=== PATIENT | male | born 1940 | race Caucasian/White ===

== ENCOUNTER → 2016-04-10 | Outpatient (CLI) | payer MEDICARE, BC ==
[~2016-04-10] MED LIST: ASPIRIN 81M81 MG/TA2 PO; CALCIUM 500500 M2 PO; CARDI-OMEGA1000 MG PO; DOXYCYCLINE 10100 MG PO; ELIQUIS 5MG PO; GLUCOSAMINE & C1 TA2 PO; HCTZ12.5TAB PO; IMDUR 30MG30 MG/TAB; LOTENSIN HCT 201 TAB PO; LOTENSIN20 MG PO; MULTAQ400 MG PO; MULTIPLE VITAMI1 CAP PO; PERFOROMIS20 MCG/2 M; PREDNISONE20 MG PO; PULMICORT R1 MG/2 ML; RT ADVAIR 128 DISKUS IH; RT SPIRIVA18 MCG IH; TRIAMCINOLONE A15 G3 TP; TUDORZA; TYLENOL 500MG500 MG PO; VENTOLIN0.09 MG; VITAMIN D 1001000 IU PO; XARELTO20 MG PO; ZOFRAN ODT4 MG PO; [UNRECOGNIZED DRUG - OTHER]
== END ==
LOC: COL.VAS 09:55
DX: I27.2 Other secondary pulmonary hypertension (principal); R94.39 Abnormal result of other cardiovascular function study

== ENCOUNTER 2017-07-29 05:39 | Inpatient (IN) | payer MEDICARE, BC ==
[2017-07-29] VITALS (400 sets, daily range): BP systolic 125–155; BP diastolic 89–102; PULSE 64–75; TEMP 97.5–98.1; O2SAT 84–100
[~2017-07-29] VITALS: Ht 180.3 cm; Wt 160.0 kg
[~2017-07-29 05:39] MED LIST changes: +CALCIUM 600MG+D1 TAB PO; +FLONASE NASAL S16 GM NS; -IMDUR 30MG30 MG/TAB; +IMDUR 30MG30 MG/TAB PO; +KLONOPIN 0.5MG0.5 MG PO; +LOTENSIN HCT 101 TAB PO; +MUCINEX DM 30 M1 TE1 PO; +SPIRIVA RE2.5 MCG/Ac IH; -VENTOLIN0.09 MG; +VENTOLIN0.09 MG IH
[2017-07-29 05:57] LABS: BASO # 0.1 (0.0-0.2); BASO % 0.8 % (0.0-2.0); EOS # 0.3 (0.0-0.7); EOS % 3.7 % (0-4.0); GRAN # 5.6 (1.4-6.5); GRAN % 71.3 % (42.2-75.2); HEMATOCRIT 40.6 % (42.0-52.0); HEMOGLOBIN 13.9 g/dl (13.5-18.0); LYMPH # 1.1 (1.2-3.4); LYMPH % 13.7 % (20.0-51.0); MEAN CELL VOLUME 99 fl (80.0-100.0); MEAN CORPUSCULAR HEMOGLOBIN 34 pg (27.0-31.0); MEAN CORPUSCULAR HGB CONC 34 g/dl (33.0-37.0); MEAN PLATELET VOLUME 10.9 fl (7.4-10.4); MONO # 0.8 (0.1-0.6); MONO % 10.1 % (1.7-9.3); PLATELET COUNT 177 K/mm3 (130-400); RED BLOOD COUNT 4.09 M/mm3 (4.20-5.60); REDCELL DISTRIBUTION WIDTH-CV 12.7 % (11.5-14.5)
[2017-07-29 06:08] LABS: ALBUMIN 3.9 gm/dL (3.5-5.0); BILIRUBIN,TOTAL 0.4 mg/dL (0.0-1.0); CALCIUM 9.1 mg/dL (8.4-10.2); CREATININE, serum 0.9 mg/dL (0.66-1.25); POTASSIUM 4.7 mmol/L (3.4-5.0); TOTAL PROTEIN 7.2 gm/dL (6.4-8.2)
[2017-07-29 07:50] LABS: INR 1.1 (0.8-3.0); PROTHROMBIN TIME 12.4 SECONDS (9.7-12.8)
[2017-07-29 07:52] LABS: PARTIAL THROMBOPLASTIN TIME 43.4 SECONDS (26.0-37.0)
[2017-07-30] VITALS (315 sets, daily range): BP systolic 128–161; BP diastolic 73–96; PULSE 58–84; TEMP 97.4–98.2; O2SAT 81–100
[2017-07-31 00:11] VITALS: BP 107/62; PULSE 65; TEMP 98
[2017-07-31 02:22] VITALS: BP 122/73; PULSE 65
[2017-07-31 07:26] VITALS: BP 151/86; PULSE 68; TEMP 98.1
[2017-07-31 11:38] VITALS: BP 143/89; PULSE 83; TEMP 98.3
[2017-07-31 12:26] LABS: HEMOGLOBIN 10.4 g/dl (13.5-18.0)
[2017-07-31 12:33] LABS: HEMATOCRIT 30.8 % (42.0-52.0)
== END 2017-07-31 14:37 | disposition home or self-care (01) | DRG 378 ==
LOC: COL.ER 05:39 → ICU 08:44 → MEDICAL 08:44
PROVIDERS: Emergency Medicine; Family Medicine; Internal Medicine Gastroenterology
PROC: 0DJD8ZZ Inspection of Lower Intestinal Tract, Via Natural or Artificial Opening Endoscopic (ICD-10-PCS; principal; 2017-07-30 13:15)
DX: K57.31 Diverticulosis of large intestine without perforation or abscess with bleeding (principal); D62 Acute posthemorrhagic anemia; J44.9 Chronic obstructive pulmonary disease, unspecified; I10 Essential (primary) hypertension; I48.0 Paroxysmal atrial fibrillation; Z79.01 Long term (current) use of anticoagulants; Z87.891 Personal history of nicotine dependence
CPT/HCPCS: 99232-AI; 99239; J2704; J3010; J7030; Q9967

== ENCOUNTER 2017-11-11 16:03 | Inpatient (IN) | payer MEDICARE, BC ==
[~2017-11-11] VITALS: Ht 177.8 cm; Wt 105.2 kg
[2017-11-11] VITALS (62 sets, daily range): BP systolic 117–144; BP diastolic 69–104; PULSE 75–78; TEMP 97.9–98.4; O2SAT 95–99
[~2017-11-11 16:03] MED LIST changes: +CALCIUM CARBON650 M2 PO; +MELATONIN5 M1 SL; +TYLENOL PM EXTR1 TA1 PO; +VITAMIN D31000 I1 PO
[2017-11-11] MEDS ORDERED: LOTENSIN HCT 101 TAB PO ×2 (17:16→17:26)
[2017-11-11] MEDS ORDERED: FLONASE NASAL S16 GM NS (17:18)
[2017-11-11] MEDS ORDERED: MUCINEX1200 MG PO (17:19)
[2017-11-11] MEDS ORDERED: IMDUR 30MG30 MG/TAB PO (17:20)
[2017-11-11] MEDS ORDERED: SPIRIVA RE2.5 MCG/Ac IH (17:21)
[2017-11-11] MEDS ORDERED: ASPIRIN E.C. 8181 MG PO (17:22)
[2017-11-11] MEDS ORDERED: ALBUTEROL0.83 MG/ML IH (17:22)
[2017-11-11] MEDS ORDERED: ELIQUIS 5MG PO (17:23)
[2017-11-11] MEDS ORDERED: VENTOLIN0.09 MG IH (17:24)
[2017-11-11] MEDS ORDERED: VIAGRA50 M1 PO (17:25)
[2017-11-11] MEDS ORDERED: ZOFRAN 4MG T4 MG/TAB PO (17:27)
[2017-11-11 20:43] LABS: CALCIUM 8.5 mg/dL (8.4-10.2); CREATININE, serum 0.82 mg/dL (0.66-1.25); MAGNESIUM 1.7 mg/dL (1.6-2.3); URIC ACID 4.1 mg/dL (3.5-8.5)
[2017-11-11] MEDS ORDERED: KLONOPIN 0.5MG0.5 MG PO (22:40)
[2017-11-12 00:19] LABS: CALCIUM 8.5 mg/dL (8.4-10.2); CREATININE, serum 0.75 mg/dL (0.66-1.25); POTASSIUM 3.8 mmol/L (3.4-5.0)
[2017-11-12 02:09] LABS: MUCOUS Present /lpf; PH 6 (5-8); SQUAMOUS EPITHELIAL None Seen /hpf; URINE APPEARANCE Clear; URINE BACTERIA None Seen /hpf; URINE BILIRUBIN Negative (NEGATIVE); URINE BLOOD Negative (NEGATIVE); URINE COLOR Yellow; URINE GLUCOSE Negative (NEGATIVE); URINE KETONE Trace (NEGATIVE); URINE LEUKOCYTE ESTERASE Negative (NEGATIVE); URINE NITRATE Negative (NEGATIVE); URINE PROTEIN(semi-quant) Negative (NEGATIVE); URINE RBC 0-2 /hpf; URINE UROBILINOGEN Negative (NEGATIVE)
[2017-11-12 03:46] LABS: COLLECTION METHOD CLEAN CATCH
[2017-11-12 05:49] LABS: BASO % 0.4 % (0.0-2.0); EOS # 0.1 (0.0-0.7); EOS % 1.4 % (0-4.0); GRAN # 3.5 (1.4-6.5); GRAN % 70.1 % (42.2-75.2); HEMATOCRIT 32.2 % (42.0-52.0); HEMOGLOBIN 11.1 g/dl (13.5-18.0); LYMPH # 0.5 (1.2-3.4); LYMPH % 10.9 % (20.0-51.0); MEAN CELL VOLUME 89 fl (80.0-100.0); MEAN CORPUSCULAR HEMOGLOBIN 31 pg (27.0-31.0); MEAN CORPUSCULAR HGB CONC 35 g/dl (33.0-37.0); MEAN PLATELET VOLUME 9.8 fl (7.4-10.4); MONO # 0.8 (0.1-0.6); MONO % 16.8 % (1.7-9.3); PLATELET COUNT 154 K/mm3 (130-400); RED BLOOD COUNT 3.62 M/mm3 (4.20-5.60); REDCELL DISTRIBUTION WIDTH-CV 12.8 % (11.5-14.5)
[2017-11-12 05:59] LABS: CALCIUM 8.4 mg/dL (8.4-10.2); CHOLESTEROL RISK RATIO 2.2; CREATININE, serum 0.75 mg/dL (0.66-1.25); MAGNESIUM 2.2 mg/dL (1.6-2.3); POTASSIUM 4.2 mmol/L (3.4-5.0)
[2017-11-12 07:07] VITALS: BP 140/82; PULSE 77; TEMP 97.9
[2017-11-12 11:53] VITALS: BP 113/75; PULSE 73; TEMP 98.2
[2017-11-12 13:52] LABS: CALCIUM 8.2 mg/dL (8.4-10.2); CREATININE, serum 0.74 mg/dL (0.66-1.25); POTASSIUM 4.1 mmol/L (3.4-5.0)
[2017-11-12 16:12] VITALS: BP 155/95; PULSE 72; TEMP 99.5
[2017-11-12 17:46] VITALS: BP 148/84
[2017-11-12 20:00] VITALS: BP 141/74; PULSE 81; TEMP 98.7
[2017-11-12 21:18] LABS: CALCIUM 8.6 mg/dL (8.4-10.2); CREATININE, serum 0.73 mg/dL (0.66-1.25); POTASSIUM 3.9 mmol/L (3.4-5.0)
[2017-11-13] VITALS (7 sets, daily range): BP systolic 118–147; BP diastolic 67–88; PULSE 64–88; TEMP 97.6–98.5
[2017-11-13 03:35] LABS: CALCIUM 8.4 mg/dL (8.4-10.2); CREATININE, serum 0.71 mg/dL (0.66-1.25); POTASSIUM 3.8 mmol/L (3.4-5.0)
[2017-11-13 07:31] LABS: CALCIUM 8.5 mg/dL (8.4-10.2); CREATININE, serum 0.71 mg/dL (0.66-1.25); POTASSIUM 4.4 mmol/L (3.4-5.0)
[2017-11-13 15:12] LABS: CALCIUM 8.8 mg/dL (8.4-10.2); CREATININE, serum 0.86 mg/dL (0.66-1.25); POTASSIUM 4.2 mmol/L (3.4-5.0)
[2017-11-13 21:24] LABS: CALCIUM 8.6 mg/dL (8.4-10.2); CREATININE, serum 0.86 mg/dL (0.66-1.25); POTASSIUM 4.3 mmol/L (3.4-5.0)
[2017-11-14 03:54] VITALS: BP 142/87; PULSE 66; TEMP 97.9
[2017-11-14 06:47] LABS: CALCIUM 8.6 mg/dL (8.4-10.2); CREATININE, serum 0.74 mg/dL (0.66-1.25); POTASSIUM 4.3 mmol/L (3.4-5.0)
[2017-11-14 07:18] VITALS: BP 119/67; PULSE 72; TEMP 97.4
[2017-11-14 11:54] VITALS: BP 102/74; PULSE 71; TEMP 98
[2017-11-14] MEDS ORDERED: FLOMAX 0.40.4 MG/CAP PO (13:28)
[2017-11-14] MEDS ORDERED: LOTENSIN 1010 MG/TAB PO (13:29)
== END 2017-11-14 16:40 | disposition home or self-care (01) | DRG 641 ==
LOC: IMCU 16:03 → ICU 16:24 → MEDICAL 16:24
PROVIDERS: Internal Medicine; Nurse Practitioner; Nurse Practitioner Family
DX: E87.1 Hypo-osmolality and hyponatremia (principal); T50.2X5A Adverse effect of carbonic-anhydrase inhibitors, benzothiadiazides and other diuretics, initial encounter; I10 Essential (primary) hypertension; J44.9 Chronic obstructive pulmonary disease, unspecified; I48.0 Paroxysmal atrial fibrillation; E83.42 Hypomagnesemia; N40.1 Benign prostatic hyperplasia with lower urinary tract symptoms; R33.8 Other retention of urine; Z87.891 Personal history of nicotine dependence
CPT/HCPCS: 99223-AI; 99232-AI; 99239; J3475; J7131

== ENCOUNTER → 2017-11-18 | Emergency (ER) | payer MEDICARE, BC ==
[~2017-11-18] VITALS: Ht 180.3 cm; Wt 95.5 kg
[~2017-11-18] MED LIST changes: +ALBUTEROL0.83 MG/ML IH; +ASPIRIN E.C. 8181 MG PO; +FLOMAX 0.40.4 MG/CAP PO; +LOTENSIN 1010 MG/TAB PO; +MUCINEX1200 MG PO; +VIAGRA50 M1 PO; +ZOFRAN 4MG T4 MG/TAB PO
[2017-11-18 11:25] VITALS: TEMP 97.1
[2017-11-18 11:52] LABS: BASO # 0.1 (0.0-0.2); BASO % 0.9 % (0.0-2.0); EOS # 0.1 (0.0-0.7); EOS % 2.2 % (0-4.0); GRAN # 4.1 (1.4-6.5); GRAN % 71.1 % (42.2-75.2); HEMOGLOBIN 11.3 g/dl (13.5-18.0); LYMPH # 0.7 (1.2-3.4); LYMPH % 11.9 % (20.0-51.0); MEAN CELL VOLUME 92 fl (80.0-100.0); MEAN CORPUSCULAR HEMOGLOBIN 31 pg (27.0-31.0); MEAN CORPUSCULAR HGB CONC 34 g/dl (33.0-37.0); MEAN PLATELET VOLUME 10.3 fl (7.4-10.4); MONO # 0.8 (0.1-0.6); MONO % 13.2 % (1.7-9.3); PLATELET COUNT 216 K/mm3 (130-400); RED BLOOD COUNT 3.65 M/mm3 (4.20-5.60); REDCELL DISTRIBUTION WIDTH-CV 13.2 % (11.5-14.5)
[2017-11-18 11:56] LABS: HEMATOCRIT 33.5 % (42.0-52.0)
[2017-11-18 12:04] LABS: ALANINE AMINOTRANSFERASE 32 U/L (21-72); ALBUMIN 3.7 gm/dL (3.5-5.0); ALKALINE PHOSPHATASE 42 U/L (50-136); ANION GAP 8 mmol/L (7-16); AST,SGOT 37 U/L (15-37); BILIRUBIN,TOTAL 0.4 mg/dL (0.0-1.0); BLOOD UREA NITROGEN 14 mg/dL (9-20); CALCIUM 8.7 mg/dL (8.4-10.2); CARBON DIOXIDE 30 mmol/L (22-30); CHLORIDE 90 mmol/L (98-107); CREATININE, serum 0.85 mg/dL (0.66-1.25); GLUCOSE 91 mg/dL (74-106); POTASSIUM 4.8 mmol/L (3.4-5.0); SODIUM 128 mmol/L (137-145); TOTAL PROTEIN 6.5 gm/dL (6.4-8.2)
[2017-11-18 12:07] LABS: C-REACTIVE PROTEIN < 0.5 mg/dL (0.0-0.9)
[2017-11-18 13:21] VITALS: BP 134/86; PULSE 79
== END ==
LOC: COL.ER 11:23
PROVIDERS: Family Medicine
DX: E86.1 Hypovolemia (principal); I10 Essential (primary) hypertension
CPT/HCPCS: J7030

== ENCOUNTER 2017-12-22 11:55 | Day surgery (SDC) | payer MEDICARE, BC ==
[~2017-12-22] VITALS: Ht 180.3 cm; Wt 93.6 kg
[2017-12-22] VITALS (8 sets, daily range): BP systolic 132–165; BP diastolic 47–101; PULSE 59–77; TEMP 97.4–98.6
[~2017-12-22 11:55] MED LIST changes: +MELATONIN5 M1 PO; -MELATONIN5 M1 SL
[2017-12-22 12:50] LABS: BASO # 0.1 (0.0-0.2); BASO % 0.9 % (0.0-2.0); EOS # 0.1 (0.0-0.7); GRAN % 70.8 % (42.2-75.2); HEMATOCRIT 37.3 % (42.0-52.0); HEMOGLOBIN 12.3 g/dl (13.5-18.0); LYMPH # 0.9 (1.2-3.4); LYMPH % 15.1 % (20.0-51.0); MEAN CELL VOLUME 92 fl (80.0-100.0); MEAN CORPUSCULAR HEMOGLOBIN 30 pg (27.0-31.0); MEAN CORPUSCULAR HGB CONC 33 g/dl (33.0-37.0); MEAN PLATELET VOLUME 10.2 fl (7.4-10.4); MONO # 0.6 (0.1-0.6); PLATELET COUNT 192 K/mm3 (130-400); RED BLOOD COUNT 4.07 M/mm3 (4.20-5.60); REDCELL DISTRIBUTION WIDTH-CV 15.4 % (11.5-14.5)
[2017-12-23] VITALS (7 sets, daily range): BP systolic 115–148; BP diastolic 62–85; PULSE 66–82; TEMP 98–98.7
[2017-12-24 03:28] VITALS: BP 148/84; PULSE 68; TEMP 98.3
[2017-12-24 08:55] VITALS: BP 131/72; PULSE 95; TEMP 98
[2017-12-24 12:31] VITALS: BP 103/68; PULSE 105; TEMP 97.7
[2017-12-24 15:50] VITALS: BP 124/71; PULSE 85; TEMP 98.8
== END 2017-12-24 18:10 | disposition home or self-care (01) ==
LOC: SDCO 11:55 → SURG 17:20 → SDCO 12-24 18:10
PROVIDERS: Urology
DX: N40.1 Benign prostatic hyperplasia with lower urinary tract symptoms (principal); N13.8 Other obstructive and reflux uropathy; R33.9 Retention of urine, unspecified; I48.91 Unspecified atrial fibrillation; J44.9 Chronic obstructive pulmonary disease, unspecified; I10 Essential (primary) hypertension; G47.33 Obstructive sleep apnea (adult) (pediatric); G47.34 Idiopathic sleep related nonobstructive alveolar hypoventilation; I25.10 Atherosclerotic heart disease of native coronary artery without angina pectoris; M19.90 Unspecified osteoarthritis, unspecified site; D64.9 Anemia, unspecified; Z98.52 Vasectomy status; Z88.0 Allergy status to penicillin; Z85.828 Personal history of other malignant neoplasm of skin; Z87.891 Personal history of nicotine dependence; Z80.49 Family history of malignant neoplasm of other genital organs
CPT/HCPCS: OP; J0690; J2175; J2250; J2704; J3010; J3480; J7030

== ENCOUNTER → 2018-03-25 | Outpatient (CLI) | payer MEDICARE, BC ==
[~2018-03-25] MED LIST changes: +CEFTIN500 MG PO; +DOXYCYCLINE HY100 MG PO; +TYLENOL 325MG325 MG PO
[2018-03-25 12:21] LABS: BASO # 0.1 (0.0-0.2); BASO % 0.8 % (0.0-2.0); EOS # 0.2 (0.0-0.7); EOS % 2.9 % (0-4.0); GRAN # 4.2 (1.4-6.5); GRAN % 70.9 % (42.2-75.2); HEMOGLOBIN 11.6 g/dl (13.5-18.0); LYMPH # 0.8 (1.2-3.4); LYMPH % 13.8 % (20.0-51.0); MEAN CELL VOLUME 96 fl (80.0-100.0); MEAN CORPUSCULAR HEMOGLOBIN 30 pg (27.0-31.0); MEAN CORPUSCULAR HGB CONC 31 g/dl (33.0-37.0); MEAN PLATELET VOLUME 10.9 fl (7.4-10.4); MONO # 0.7 (0.1-0.6); MONO % 11.4 % (1.7-9.3); PLATELET COUNT 208 K/mm3 (130-400); RED BLOOD COUNT 3.87 M/mm3 (4.20-5.60); REDCELL DISTRIBUTION WIDTH-CV 14.6 % (11.5-14.5)
[2018-03-25 12:28] LABS: CREATININE, serum 0.9 mg/dL (0.66-1.25)
== END ==
LOC: COL.LAB 10:54
PROVIDERS: Physician Assistant
DX: R04.2 Hemoptysis (principal)

== ENCOUNTER → 2018-04-13 | Outpatient (CLI) | payer MEDICARE, BC ==
[~2018-04-13] MED LIST changes: +LEVAQUIN 750MG750 M1 PO
== END ==
LOC: COL.RAD 13:40
DX: C34.92 Malignant neoplasm of unspecified part of left bronchus or lung (principal); G31.9 Degenerative disease of nervous system, unspecified; I67.82 Cerebral ischemia
CPT/HCPCS: A9585

== ENCOUNTER 2018-05-17 09:22 | Inpatient (IN) | payer MEDICARE, BC ==
[~2018-05-17] VITALS: Ht 177.8 cm; Wt 100.9 kg
[2018-05-17] VITALS (345 sets, daily range): BP systolic 102–122; BP diastolic 63–75; PULSE 78–82; TEMP 98.1–98.3; O2SAT 76–100
[2018-05-17 10:03] LABS: ARTERIAL BLD GAS O2 SATURATION 93.5 % (92-100); ARTERIAL BLD GAS TCO2 CT 30.1; ARTERIAL BLOOD GAS BASE EXCESS 2.1 (-2-2); ARTERIAL BLOOD GAS HCO3 28.5 meq/L (22-26); ARTERIAL BLOOD GAS PCO2 52.7 mmHg (35-45); ARTERIAL BLOOD GAS PO2 75.3 mmHg (80-100); ARTERIAL BLOOD GAS pH 7.35 (7.35-7.45)
[2018-05-17 10:26] LABS: HEMOGLOBIN 10.9 g/dl (13.5-18.0); MEAN CELL VOLUME 96 fl (80.0-100.0); MEAN CORPUSCULAR HEMOGLOBIN 31 pg (27.0-31.0); MEAN CORPUSCULAR HGB CONC 32 g/dl (33.0-37.0); MEAN PLATELET VOLUME 10.2 fl (7.4-10.4); PLATELET COUNT 221 K/mm3 (130-400); RED BLOOD COUNT 3.57 M/mm3 (4.20-5.60)
[2018-05-17 10:36] LABS: ALBUMIN 3.9 gm/dL (3.5-5.0); BILIRUBIN,TOTAL 0.3 mg/dL (0.0-1.0); CALCIUM 8.8 mg/dL (8.4-10.2); CREATININE, serum 0.79 mg/dL (0.66-1.25); POTASSIUM 4.9 mmol/L (3.4-5.0); TOTAL PROTEIN 6.9 gm/dL (6.4-8.2)
[2018-05-17 10:41] LABS: HEMATOCRIT 34.2 % (42.0-52.0)
[2018-05-17 12:11] LABS: BAND 2 % (0-10); NEUTROPHILS 97 % (42.0-75.2); PLATELET ESTIMATE NORMAL (NORMAL)
--- NOTE | 2018-05-17 14:15 | NUR ---
Patient arrives to ICU with ED RNPaula. Patient alert and appropriate. VS WNL while on levophed gtt at 6 mcg/min. Will change gtt to run at mcg/kg/min per protocol. Patient oriented to room. Call light within reach, Assessment completed. Dr. Rodriguez notified of arrival. Will continue to monitor.
--- NOTE | 2018-05-17 16:26 | NUR ---
Patient doing well. He has eaten with no c/o nausea. Continuing to titrate off the levophed as BP allows. Patient updated on plan of care and pulmonary consult with Dr. Ha later this evening. Patient verbalizes understanding and agrees with the plan. Will continue to monitor.
--- NOTE | 2018-05-17 19:10 | NUR ---
Bedside report received from JUNAID Galdamez
--- NOTE | 2018-05-17 19:26 | NUR ---
REPORT GIVEN TO JUNAID CAMPA
--- NOTE | 2018-05-17 20:00 | NUR ---
Assessment complete at this time. Patient is sitting at the side of the bed on his computer. Has no complaints of pain, but is short of breath especially with exertion or talking too much. Vitals are stable and WNL. Patient requests some ice water, provided. Patient has no other needs at this time. Will call when he is ready for bed and BIPAP. Will continue to monitor. Call light within reach.
[2018-05-17 20:11] LABS: COLLECTION METHOD CLEAN CATCH
[2018-05-17 20:18] LABS: MUCOUS Present /lpf; PH 5 (5-8); SQUAMOUS EPITHELIAL None Seen /hpf; URINE APPEARANCE Clear; URINE BACTERIA None Seen /hpf; URINE BILIRUBIN Negative (NEGATIVE); URINE BLOOD Negative (NEGATIVE); URINE COLOR Yellow; URINE GLUCOSE Negative (NEGATIVE); URINE KETONE Negative (NEGATIVE); URINE LEUKOCYTE ESTERASE Trace (NEGATIVE); URINE NITRATE Negative (NEGATIVE); URINE PROTEIN(semi-quant) 1+ (NEGATIVE); URINE RBC 0-2 /hpf; URINE UROBILINOGEN Negative (NEGATIVE)
[2018-05-18] VITALS (688 sets, daily range): BP systolic 107–137; BP diastolic 63–84; PULSE 68–84; TEMP 97.4–98.3; O2SAT 77–100
--- NOTE | 2018-05-18 | NUR ---
Assessment complete. Patient resting in bed on BIPAP at this time. No complaints of pain, just some mild heartburn that patient states is irritation from radiation treatments. Patient has no other needs at this time. Vitals stable. Will continue to monitor. Call light within reach.
--- NOTE | 2018-05-18 04:00 | NUR ---
Patient resting in bed at this time, assessment complete. No complaints of pain or SOB currently. Vitals stable. No current needs. Will continue to monitor. Call light within reach.
[2018-05-18 05:49] LABS: ARTERIAL BLD GAS O2 SATURATION 94.5 % (92-100); ARTERIAL BLD GAS TCO2 CT 27.8; ARTERIAL BLOOD GAS BASE EXCESS -1.3 (-2-2); ARTERIAL BLOOD GAS HCO3 26.1 meq/L (22-26); ARTERIAL BLOOD GAS PCO2 57.3 mmHg (35-45); ARTERIAL BLOOD GAS PO2 82.5 mmHg (80-100); ARTERIAL BLOOD GAS pH 7.28 (7.35-7.45)
[2018-05-18 06:09] LABS: MEAN CELL VOLUME 99 fl (80.0-100.0); MEAN CORPUSCULAR HGB CONC 31 g/dl (33.0-37.0); MEAN PLATELET VOLUME 10.3 fl (7.4-10.4); PLATELET COUNT 196 K/mm3 (130-400); REDCELL DISTRIBUTION WIDTH-CV 17.6 % (11.5-14.5)
[2018-05-18 06:11] LABS: HEMATOCRIT 30.8 % (42.0-52.0); HEMOGLOBIN 9.6 g/dl (13.5-18.0); MEAN CORPUSCULAR HEMOGLOBIN 31 pg (27.0-31.0)
[2018-05-18 06:18] LABS: ALBUMIN 3.3 gm/dL (3.5-5.0); BILIRUBIN,TOTAL 0.2 mg/dL (0.0-1.0); CALCIUM 8.3 mg/dL (8.4-10.2); POTASSIUM 5.3 mmol/L (3.4-5.0); TOTAL PROTEIN 6.2 gm/dL (6.4-8.2)
[2018-05-18 07:02] LABS: CREATININE, serum 0.79 mg/dL (0.66-1.25)
[2018-05-18 07:15] LABS: BAND 17 % (0-10); NEUTROPHILS 79 % (42.0-75.2); PLATELET ESTIMATE NORMAL (NORMAL)
--- NOTE | 2018-05-18 07:40 | NUR ---
public works technician in room for echo.
--- NOTE | 2018-05-18 07:50 | NUR ---
Bedside report given to JUNAID Hernández.
--- NOTE | 2018-05-18 08:15 | NUR ---
Assessment complete, patient sitting on side of bed. AM care complete. Call light within reach.
--- NOTE | 2018-05-18 10:08 | NUR ---
Initial visit; Patient thanked Product Safety Head for looking in on him and keeping him in Product Safety Head's prayers.
--- NOTE | 2018-05-18 10:29 | NUR ---
RT placed patient bipap, 12/24.
--- NOTE | 2018-05-18 11:57 | NUR ---
DONNIE and SW student met with the patient to discuss discharge plan. The patient lives in [place] with his son, Igor. He reports independence with ADLs and does not use any ambulatory devices. He does have home oxygen through [facility]. The patient's PCP is Dr. Karthik De Los Santos and he receives his medications at the [facility]. He reports no difficulties obtaining his meds. The patient does not have advanced directives in EMR, but he states that he is working with an state attorney right now to update his advanced directives. The patient plans to return home with his son upon discharge. The patient is currently using a bipap machine. SW to continue to follow.
--- NOTE | 2018-05-18 14:33 | NUR ---
Patient sitting up at bedside, denies needs at this time.
[2018-05-18 16:50] LABS: ARTERIAL BLD GAS O2 SATURATION 96.5 % (92-100); ARTERIAL BLD GAS TCO2 CT 28.1; ARTERIAL BLOOD GAS BASE EXCESS -0.2 (-2-2); ARTERIAL BLOOD GAS HCO3 26.5 meq/L (22-26); ARTERIAL BLOOD GAS PCO2 53.6 mmHg (35-45); ARTERIAL BLOOD GAS PO2 101.7 mmHg (80-100); ARTERIAL BLOOD GAS pH 7.31 (7.35-7.45)
--- NOTE | 2018-05-18 19:25 | NUR ---
Bedside report received from JUNAID Hernández. Helped assist patient up to the recliner.
--- NOTE | 2018-05-18 19:25 | NUR ---
Bedside report given to JUNAID Fishman.
--- NOTE | 2018-05-18 20:00 | NUR ---
Assessment complete at this time. Patient sitting in the recliner reading a book. No complaints of pain and only mild SOB with exertion. Assessment reveals wheezes in the bases of both lungs and 3+ pitting edema in the lower extremities. Patient has no further needs at this time. Will continue to monitor. Call light within reach.
[2018-05-19] VITALS (143 sets, daily range): BP systolic 115; BP diastolic 79; PULSE 64; TEMP 98; O2SAT 97–100
--- NOTE | 2018-05-19 | NUR ---
Assessment complete. Patient laying in bed sleeping. Awakens easily. No complaints of pain or SOB, patient on BIPAP. Assessment shows wheezes have improved. Patient has no other needs at this time. Will continue to monitor. Call light within reach.
--- NOTE | 2018-05-19 12:35 | NUR ---
Follow-up visit; Patient doing well and thanked It Communications Manager for looking in on him again and wishing him well.
--- NOTE | 2018-05-19 13:33 | NUR ---
SW and SW student attended clinical rounds. The patient is to be transferred to the medical floor today, 05/20. DONNIE requested that the PA order PT/OT. The PA is to order PT/OT. SW to continue to follow.
[2018-05-20] VITALS (20 sets, daily range): BP systolic 145–154; BP diastolic 60–90; PULSE 78–87; TEMP 97.5–98.4; O2SAT 91–93
--- NOTE | 2018-05-20 08:00 | NUR ---
Pt is awake and A/Ox4, sitting up in the recliner. He denies pain or discomfort. PICC to right upper arm is free of complications. Pt remains on 4L O2 per NC, resp. are even and unlabored at rest. Pt is up as tolerated in room without difficulty. Pt denies any needs at this time.
[2018-05-20 13:31] LABS: BASO % 0.1 % (0.0-2.0); GRAN # 9.5 (1.4-6.5); GRAN % 93.9 % (42.2-75.2); HEMATOCRIT 31.9 % (42.0-52.0); HEMOGLOBIN 9.9 g/dl (13.5-18.0); LYMPH # 0.1 (1.2-3.4); LYMPH % 0.8 % (20.0-51.0); MEAN CELL VOLUME 97 fl (80.0-100.0); MEAN CORPUSCULAR HEMOGLOBIN 30 pg (27.0-31.0); MEAN CORPUSCULAR HGB CONC 31 g/dl (33.0-37.0); MEAN PLATELET VOLUME 10.3 fl (7.4-10.4); MONO # 0.5 (0.1-0.6); MONO % 4.5 % (1.7-9.3); PLATELET COUNT 225 K/mm3 (130-400); REDCELL DISTRIBUTION WIDTH-CV 16.9 % (11.5-14.5)
[2018-05-20 13:32] LABS: CALCIUM 9.1 mg/dL (8.4-10.2); CREATININE, serum 0.85 mg/dL (0.66-1.25); POTASSIUM 5.2 mmol/L (3.4-5.0)
[2018-05-20 15:10] LABS: CALCIUM 9.3 mg/dL (8.4-10.2); CREATININE, serum 0.89 mg/dL (0.66-1.25)
--- NOTE | 2018-05-20 15:16 | NUR ---
DONNIE met with patient and obtained choice form for [facility] for his trilogy. SW faxed information other than ABG to [facility] will send that as soon as its received. nurse has ordered it.
[2018-05-20 15:33] LABS: ARTERIAL BLD GAS O2 SATURATION 94.2 % (92-100); ARTERIAL BLD GAS TCO2 CT 31.1; ARTERIAL BLOOD GAS BASE EXCESS 2.7 (-2-2); ARTERIAL BLOOD GAS HCO3 29.4 meq/L (22-26); ARTERIAL BLOOD GAS PCO2 54.8 mmHg (35-45); ARTERIAL BLOOD GAS PO2 77.8 mmHg (80-100); ARTERIAL BLOOD GAS pH 7.35 (7.35-7.45)
[2018-05-20 17:17] LABS: ARTERIAL BLD GAS O2 SATURATION 94.7 % (92-100); ARTERIAL BLD GAS TCO2 CT 33.2; ARTERIAL BLOOD GAS BASE EXCESS 4.1 (-2-2); ARTERIAL BLOOD GAS HCO3 31.3 meq/L (22-26); ARTERIAL BLOOD GAS PCO2 61.1 mmHg (35-45); ARTERIAL BLOOD GAS PO2 80.9 mmHg (80-100); ARTERIAL BLOOD GAS pH 7.33 (7.35-7.45)
[2018-05-20 17:19] LABS: CALCIUM 9.1 mg/dL (8.4-10.2); CREATININE, serum 0.85 mg/dL (0.66-1.25); PHOSPHOROUS 3.2 mg/dL (2.5-4.5); POTASSIUM 5.2 mmol/L (3.4-5.0); URIC ACID 4.8 mg/dL (3.5-8.5)
--- NOTE | 2018-05-20 20:30 | NUR ---
Initial shift assessment done- states has some throat soreness-would like the majic mouthwash before bed tonight, o2 at 4L/nc, states breathing ok tonight- will use CPAP tonight, Tele on
--- NOTE | 2018-05-20 20:58 | NUR ---
PT SITTING UP IN CHAIR FOR TX. CALL LIGHT WITHIN REACH. PT RINSED OUT MOUTH AFTER TX.
[2018-05-21 01:03] VITALS: BP 125/69; PULSE 79; TEMP 98.1
--- NOTE | 2018-05-21 06:09 | NUR ---
No requests- did wear CPAP most of the night-sitting at edge of bed working on his laptop
[2018-05-21 06:18] LABS: BASO % 0.4 % (0.0-2.0); EOS # 0.1 (0.0-0.7); EOS % 0.9 % (0-4.0); GRAN # 4.6 (1.4-6.5); GRAN % 84.8 % (42.2-75.2); LYMPH # 0.3 (1.2-3.4); LYMPH % 5.9 % (20.0-51.0); MEAN CELL VOLUME 96 fl (80.0-100.0); MEAN CORPUSCULAR HGB CONC 32 g/dl (33.0-37.0); MEAN PLATELET VOLUME 9.9 fl (7.4-10.4); MONO # 0.4 (0.1-0.6); MONO % 7.1 % (1.7-9.3); PLATELET COUNT 255 K/mm3 (130-400); REDCELL DISTRIBUTION WIDTH-CV 16.8 % (11.5-14.5)
[2018-05-21 06:19] LABS: HEMATOCRIT 30.7 % (42.0-52.0); HEMOGLOBIN 9.7 g/dl (13.5-18.0); MEAN CORPUSCULAR HEMOGLOBIN 30 pg (27.0-31.0)
[2018-05-21 06:33] LABS: ALBUMIN 3.2 gm/dL (3.5-5.0); BILIRUBIN,TOTAL 0.1 mg/dL (0.0-1.0); CALCIUM 8.9 mg/dL (8.4-10.2); CREATININE, serum 0.79 mg/dL (0.66-1.25); POTASSIUM 4.8 mmol/L (3.4-5.0)
--- NOTE | 2018-05-21 07:50 | NUR ---
Received report, in to meet patient. Patient is observed sitting up in recliner eating breakfast. States he doesn't have any needs at this time. Declines having any pain. Is noted to have a cough. Call light is within reach.
[2018-05-21 10:07] VITALS: BP 132/78; PULSE 93; TEMP 97.7
[2018-05-21 13:00] VITALS: BP 138/71; PULSE 97; TEMP 97.5
[2018-05-21] MEDS ORDERED: LEVAQUIN 5500 MG/TA1 PO (13:11)
[2018-05-21] MEDS ORDERED: CEFTIN500 MG PO (13:11)
[2018-05-21] MEDS ORDERED: PREDNISONE10 MG PO (13:13)
--- NOTE | 2018-05-21 15:55 | NUR ---
Patient discharged from room at 1535 via wheelchair. Discharge instructions given to patient with understanding. He reports his pharmacy have notified him that his medications are ready for orange picking supervisor. Patient will be getting home via private vehicle driven by son. community services officer has called home o2 company to arrange delivery of trilogy machine. No further questions voiced.
[2018-05-22 20:15] LABS: BASO % 0.2 % (0.0-2.0); EOS # 0.1 (0.0-0.7); EOS % 0.8 % (0-4.0); GRAN # 5.8 (1.4-6.5); GRAN % 89.7 % (42.2-75.2); HEMATOCRIT 30.2 % (42.0-52.0); HEMOGLOBIN 9.4 g/dl (13.5-18.0); LYMPH # 0.2 (1.2-3.4); LYMPH % 3.6 % (20.0-51.0); MEAN CELL VOLUME 98 fl (80.0-100.0); MEAN CORPUSCULAR HEMOGLOBIN 30 pg (27.0-31.0); MEAN CORPUSCULAR HGB CONC 31 g/dl (33.0-37.0); MONO # 0.3 (0.1-0.6); MONO % 5.1 % (1.7-9.3); PLATELET COUNT 238 K/mm3 (130-400); RED BLOOD COUNT 3.09 M/mm3 (4.20-5.60); REDCELL DISTRIBUTION WIDTH-CV 17.3 % (11.5-14.5)
[2018-05-24] MEDS ORDERED: LOTENSIN 1010 MG/TAB PO (14:32)
== END 2018-05-21 15:35 | disposition home or self-care (01) | DRG 871 ==
LOC: COL.ER 09:22 → ICU 11:38 → MEDICAL 05-20 13:30
PROVIDERS: Emergency Medicine; Internal Medicine; Internal Medicine Pulmonary Disease; Physician Assistant; ADMIT Hospitalist
DX: A41.9 Sepsis, unspecified organism (principal); J96.22 Acute and chronic respiratory failure with hypercapnia; J18.9 Pneumonia, unspecified organism; J90 Pleural effusion, not elsewhere classified; E87.1 Hypo-osmolality and hyponatremia; C34.92 Malignant neoplasm of unspecified part of left bronchus or lung; R65.20 Severe sepsis without septic shock; I48.2 Chronic atrial fibrillation; J44.9 Chronic obstructive pulmonary disease, unspecified; E87.5 Hyperkalemia; I10 Essential (primary) hypertension; Z87.891 Personal history of nicotine dependence; Z09 Encounter for follow-up examination after completed treatment for conditions other than malignant neoplasm; Z88.0 Allergy status to penicillin
CPT/HCPCS: 99233-AI; 99239; A4216; A9270-GY; C1751; J0692; J1650; J1720; J1815; J1940; J1956; J2920; J2930; J3370; J7030; J7050; J7060; J7120; J7512; Q9967

== ENCOUNTER 2018-07-12 11:30 | Outpatient (RCR) | payer MEDICARE, BC ==
--- NOTE | 2018-05-24 14:00 | NUR ---
Here for cares. Patient is going to be receiving chemotherapy. With sterile technique right upper arm PICC dressing change done with insertion site cleansed with chloraprep x 1, impregnated chlorhexidine disk applied, skin prep, stat lock, and tegaderm applied. no signs or symptoms of IV complications noted. no concerns voiced. re-wrapped with agustín to protect catheter. to return next week for cares. voiced understanding of instructions.
[2018-05-24 14:30] VITALS: BP 120/72; PULSE 87; TEMP 98.5
--- NOTE | 2018-05-31 14:10 | NUR ---
PICC intact right upper arm with sterile dressing change done with insertion site cleansed with chloraprep x 1, chlorhexidine impregnated disk, skin prep, stat lock, and tegaderm applied. no signs or symptoms of IV complications noted. no concerns voiced. re-wrapped with agustín to protect catheter. to return next week for cares. voiced understanding of instructions.
[2018-05-31 14:15] LABS: HEMOGLOBIN 10.3 g/dl (13.5-18.0); MEAN CELL VOLUME 98 fl (80.0-100.0); MEAN CORPUSCULAR HEMOGLOBIN 31 pg (27.0-31.0); MEAN CORPUSCULAR HGB CONC 32 g/dl (33.0-37.0); MEAN PLATELET VOLUME 10.1 fl (7.4-10.4); PLATELET COUNT 112 K/mm3 (130-400); RED BLOOD COUNT 3.32 M/mm3 (4.20-5.60); REDCELL DISTRIBUTION WIDTH-CV 18.7 % (11.5-14.5)
[2018-05-31 14:19] LABS: HEMATOCRIT 32.5 % (42.0-52.0)
[2018-05-31 14:54] VITALS: BP 148/81; PULSE 80; TEMP 98.1
[2018-05-31 15:06] LABS: LYMPHOCYTE 2 % (20.0-51.0); NEUTROPHILS 97 % (42.0-75.2); PLATELET ESTIMATE DECREASED (NORMAL)
[2018-05-31 15:08] LABS: ANISOCYTOSIS 2+; MICROCYTOSIS 2+
[2018-06-07 14:00] VITALS: BP 132/75; PULSE 84; TEMP 97.7
--- NOTE | 2018-06-07 14:15 | NUR ---
here for PICC cares. With sterile technique right upper arm PICC dressing change done with insertion site cleansed with ChloraPrep 1, chlorhexidine impregnated disc applied, StatLock, skin prep, and Tegaderm applied. No signs or symptoms of IV complications noted. No concerns voiced. Arm wrapped with Brian to protect catheter. Patient to return next week for cares. Patient voiced understanding of instructions.
[2018-06-07 14:24] LABS: MEAN CELL VOLUME 96 fl (80.0-100.0); MEAN CORPUSCULAR HGB CONC 33 g/dl (33.0-37.0); MEAN PLATELET VOLUME 11.1 fl (7.4-10.4); PLATELET COUNT 56 K/mm3 (130-400); RED BLOOD COUNT 3.02 M/mm3 (4.20-5.60); REDCELL DISTRIBUTION WIDTH-CV 18.5 % (11.5-14.5)
[2018-06-07 14:25] LABS: HEMATOCRIT 29.1 % (42.0-52.0); HEMOGLOBIN 9.6 g/dl (13.5-18.0); MEAN CORPUSCULAR HEMOGLOBIN 32 pg (27.0-31.0)
[2018-06-07 15:12] LABS: ANISOCYTOSIS 2+; BAND 3 % (0-10); LYMPHOCYTE 5 % (20.0-51.0); NEUTROPHILS 89 % (42.0-75.2); PLATELET ESTIMATE DECREASED (NORMAL)
[2018-06-07 15:13] LABS: MICROCYTOSIS 1+
[2018-06-14 13:54] VITALS: BP 118/68; PULSE 87; TEMP 98.1
--- NOTE | 2018-06-14 14:00 | NUR ---
patient here for cares. With sterile technique right upper arm PICC dressing change done with insertion site cleansed with ChloraPrep 1, chlorhexidine impregnated disc applied, skin prep, StatLock, and Tegaderm applied. No signs or symptoms of IV complications noted. No concerns voiced. Arm wrapped with Brian to protect catheter. Patient to return next week for cares. Patient voiced understanding of instructions.
[2018-06-14 14:20] LABS: MEAN CELL VOLUME 97 fl (80.0-100.0); MEAN CORPUSCULAR HGB CONC 33 g/dl (33.0-37.0); MEAN PLATELET VOLUME 10.9 fl (7.4-10.4); PLATELET COUNT 113 K/mm3 (130-400); RED BLOOD COUNT 3.09 M/mm3 (4.20-5.60); REDCELL DISTRIBUTION WIDTH-CV 19.3 % (11.5-14.5)
[2018-06-14 14:27] LABS: ALBUMIN 3.7 gm/dL (3.5-5.0); BILIRUBIN,TOTAL 0.1 mg/dL (0.0-1.0); CREATININE, serum 0.94 mg/dL (0.66-1.25); HEMATOCRIT 29.9 % (42.0-52.0); HEMOGLOBIN 9.9 g/dl (13.5-18.0); MEAN CORPUSCULAR HEMOGLOBIN 32 pg (27.0-31.0); POTASSIUM 4.2 mmol/L (3.4-5.0); TOTAL PROTEIN 6.6 gm/dL (6.4-8.2)
[2018-06-14 15:51] LABS: ANISOCYTOSIS 2+; BAND 1 % (0-10); EOSINOPHIL 3 % (0-4); LYMPHOCYTE 4 % (20.0-51.0); NEUTROPHILS 83 % (42.0-75.2)
[2018-06-14 15:52] LABS: PLATELET ESTIMATE NORMAL (NORMAL)
--- NOTE | 2018-06-21 14:20 | NUR ---
here for cares. With sterile technique right upper arm PICC dressing change done with insertion site cleansed with ChloraPrep 1, chlorhexidine impregnated disc applied, skin prep, StatLock, and Tegaderm applied. Anxiety complications noted. No concerns voiced. Arm wrapped with Brian to protect catheter. Patient to return next week for cares. Patient voiced understanding of instructions.
[2018-06-21 14:24] LABS: HEMATOCRIT 30.9 % (42.0-52.0); HEMOGLOBIN 10.1 g/dl (13.5-18.0); MEAN CELL VOLUME 100 fl (80.0-100.0); MEAN CORPUSCULAR HEMOGLOBIN 33 pg (27.0-31.0); MEAN CORPUSCULAR HGB CONC 33 g/dl (33.0-37.0); PLATELET COUNT 219 K/mm3 (130-400); RED BLOOD COUNT 3.09 M/mm3 (4.20-5.60); REDCELL DISTRIBUTION WIDTH-CV 20.6 % (11.5-14.5)
[2018-06-21 14:25] VITALS: BP 116/70; PULSE 70; TEMP 97.5
[2018-06-21 14:41] LABS: ANISOCYTOSIS 2+; BAND 7 % (0-10); EOSINOPHIL 1 % (0-4); LYMPHOCYTE 4 % (20.0-51.0); NEUTROPHILS 71 % (42.0-75.2); PLATELET ESTIMATE NORMAL (NORMAL)
[2018-06-28 13:59] LABS: HEMOGLOBIN 10.2 g/dl (13.5-18.0); MEAN CELL VOLUME 100 fl (80.0-100.0); MEAN CORPUSCULAR HEMOGLOBIN 33 pg (27.0-31.0); MEAN CORPUSCULAR HGB CONC 33 g/dl (33.0-37.0); PLATELET COUNT 200 K/mm3 (130-400); RED BLOOD COUNT 3.07 M/mm3 (4.20-5.60); REDCELL DISTRIBUTION WIDTH-CV 20.2 % (11.5-14.5)
[2018-06-28 14:05] LABS: HEMATOCRIT 30.8 % (42.0-52.0)
[2018-06-28 14:13] VITALS: BP 133/73; PULSE 61; TEMP 97.5
[2018-06-28 14:13] LABS: BILIRUBIN,TOTAL 0.1 mg/dL (0.0-1.0); CALCIUM 9.2 mg/dL (8.4-10.2); CREATININE, serum 0.93 (0.66-1.25); POTASSIUM 4.2 mmol/L (3.4-5.0); TOTAL PROTEIN 6.8 gm/dL (6.4-8.2)
[2018-06-28 14:27] LABS: BAND 30 % (0-10); LYMPHOCYTE 5 % (20.0-51.0); METAMYELOCYTE 1 % (0-0); NEUTROPHILS 59 % (42.0-75.2); PLATELET ESTIMATE NORMAL (NORMAL)
[2018-06-28 14:28] LABS: ANISOCYTOSIS 2+
[2018-06-28 14:32] LABS: OVALOCYTES 1+
[2018-06-28 14:34] LABS: DOHLE BODIES PRESENT
[2018-07-05 14:14] LABS: HEMATOCRIT 31.4 % (42.0-52.0); HEMOGLOBIN 10.3 g/dl (13.5-18.0); MEAN CELL VOLUME 101 fl (80.0-100.0); MEAN CORPUSCULAR HEMOGLOBIN 33 pg (27.0-31.0); MEAN CORPUSCULAR HGB CONC 33 g/dl (33.0-37.0); MEAN PLATELET VOLUME 10.5 fl (7.4-10.4); PLATELET COUNT 126 K/mm3 (130-400); RED BLOOD COUNT 3.11 M/mm3 (4.20-5.60); REDCELL DISTRIBUTION WIDTH-CV 20.8 % (11.5-14.5)
[2018-07-05 14:35] LABS: BAND 10 % (0-10); LYMPHOCYTE 7 % (20.0-51.0); NEUTROPHILS 76 % (42.0-75.2)
[2018-07-05 14:36] LABS: PLATELET ESTIMATE DECREASED (NORMAL)
[2018-07-05 14:37] LABS: ANISOCYTOSIS 2+; MICROCYTOSIS 1+
[2018-07-05 14:38] LABS: TEAR DROP CELLS 1+
[2018-07-05 15:00] VITALS: BP 135/75; PULSE 80; TEMP 97.3
[~2018-07-12] VITALS: Ht 177.8 cm; Wt 94.5 kg
[2018-07-12 11:00] VITALS: BP 132/70; PULSE 82; TEMP 98
[~2018-07-12 11:30] MED LIST changes: +LEVAQUIN 5500 MG/TA1 PO; +PREDNISONE10 MG PO
[2018-07-12 11:49] LABS: HEMOGLOBIN 11.2 g/dl (13.5-18.0); MEAN CELL VOLUME 103 fl (80.0-100.0); MEAN CORPUSCULAR HEMOGLOBIN 34 pg (27.0-31.0); MEAN CORPUSCULAR HGB CONC 33 g/dl (33.0-37.0); MEAN PLATELET VOLUME 10.1 fl (7.4-10.4); PLATELET COUNT 202 K/mm3 (130-400); RED BLOOD COUNT 3.31 M/mm3 (4.20-5.60); REDCELL DISTRIBUTION WIDTH-CV 21.2 % (11.5-14.5)
[2018-07-12 11:52] LABS: HEMATOCRIT 34.1 % (42.0-52.0)
[2018-07-12 12:13] LABS: ANISOCYTOSIS 2+; BAND 12 % (0-10); LYMPHOCYTE 6 % (20.0-51.0); NEUTROPHILS 71 % (42.0-75.2)
== END 2018-07-12 11:45 | disposition home or self-care (01) ==
LOC: EUO 11:30
PROVIDERS: Internal Medicine Medical Oncology
DX: C34.32 Malignant neoplasm of lower lobe, left bronchus or lung (principal); I10 Essential (primary) hypertension; J44.9 Chronic obstructive pulmonary disease, unspecified

== ENCOUNTER 2018-08-22 10:29 | Emergency (ER) | payer MEDICARE, BC ==
[~2018-08-22] VITALS: Ht 177.8 cm; Wt 90.9 kg
[2018-08-22 11:00] VITALS: TEMP 98.8
[2018-08-22 11:44] LABS: HEMATOCRIT 33.1 % (42.0-52.0); HEMOGLOBIN 10.8 g/dl (13.5-18.0); MEAN CELL VOLUME 106 fl (80.0-100.0); MEAN CORPUSCULAR HEMOGLOBIN 35 pg (27.0-31.0); MEAN CORPUSCULAR HGB CONC 33 g/dl (33.0-37.0); MEAN PLATELET VOLUME 9.7 fl (7.4-10.4); PLATELET COUNT 174 K/mm3 (130-400); RED BLOOD COUNT 3.13 M/mm3 (4.20-5.60); REDCELL DISTRIBUTION WIDTH-CV 12.9 % (11.5-14.5)
[2018-08-22 11:55] LABS: INR 1.1 (0.8-3.0); PROTHROMBIN TIME 12.8 SECONDS (9.7-12.8)
[2018-08-22 11:56] LABS: ALANINE AMINOTRANSFERASE 8 U/L (21-72); ALBUMIN 3.6 gm/dL (3.5-5.0); ALKALINE PHOSPHATASE 57 U/L (50-136); ANION GAP 7 mmol/L (7-16); AST,SGOT 21 U/L (15-37); BILIRUBIN,TOTAL 0.5 mg/dL (0.0-1.0); BLOOD UREA NITROGEN 19 mg/dL (9-20); CALCIUM 9.9 mg/dL (8.4-10.2); CARBON DIOXIDE 34 mmol/L (22-30); CHLORIDE 95 mmol/L (98-107); CREATININE, serum 0.94 (0.66-1.25); GLUCOSE 94 mg/dL (74-106); POTASSIUM 4.9 mmol/L (3.4-5.0); SODIUM 136 mmol/L (137-145); TOTAL PROTEIN 7.1 gm/dL (6.4-8.2)
[2018-08-22 12:06] LABS: EOSINOPHIL 12 % (0-4); LYMPHOCYTE 10 % (20.0-51.0); NEUTROPHILS 72 % (42.0-75.2); PLATELET ESTIMATE NORMAL (NORMAL)
[2018-08-22 12:09] LABS: TROPONIN-I < 0.012 ng/mL (0.000-0.035)
[2018-08-22] MEDS ORDERED: DOXYCYCLINE 10100 MG PO (13:17)
[2018-08-22] MEDS ORDERED: PREDNISONE20 MG PO (14:30)
[2018-08-22 14:40] VITALS: BP 120/79; PULSE 81
== END 2018-08-22 14:42 | disposition home or self-care (01) ==
LOC: COL.ER 10:29
PROVIDERS: Emergency Medicine
DX: J44.9 Chronic obstructive pulmonary disease, unspecified (principal); I48.91 Unspecified atrial fibrillation; Z98.52 Vasectomy status; Z98.61 Coronary angioplasty status; Z79.51 Long term (current) use of inhaled steroids; Z87.891 Personal history of nicotine dependence
CPT/HCPCS: J2930; J3475; Q9967

== ENCOUNTER → 2018-09-08 | Outpatient (CLI) | payer MEDICARE, BC ==
[~2018-09-08] MED LIST changes: +DALIRESP500 MCG PO
== END ==
LOC: COL.VAS 14:14
DX: R06.02 Shortness of breath (principal)

== ENCOUNTER 2018-09-13 04:57 | Emergency (ER) | payer MEDICARE, BC ==
[~2018-09-13] VITALS: Ht 177.8 cm; Wt 88.6 kg
[~2018-09-13 04:57] MED LIST changes: -DALIRESP500 MCG PO
[2018-09-13 05:00] VITALS: TEMP 97.4
[2018-09-13 05:27] LABS: BASO % 0.6 % (0.0-2.0); EOS # 0.6 (0.0-0.7); EOS % 12.2 % (0-4.0); GRAN # 3.3 (1.4-6.5); GRAN % 64.9 % (42.2-75.2); HEMATOCRIT 39.2 % (42.0-52.0); HEMOGLOBIN 12.5 g/dl (13.5-18.0); LYMPH # 0.3 (1.2-3.4); LYMPH % 5.3 % (20.0-51.0); MEAN CELL VOLUME 103 fl (80.0-100.0); MEAN CORPUSCULAR HEMOGLOBIN 33 pg (27.0-31.0); MEAN CORPUSCULAR HGB CONC 32 g/dl (33.0-37.0); MEAN PLATELET VOLUME 9.6 fl (7.4-10.4); MONO # 0.8 (0.1-0.6); MONO % 16.6 % (1.7-9.3); PLATELET COUNT 164 K/mm3 (130-400); RED BLOOD COUNT 3.81 M/mm3 (4.20-5.60); REDCELL DISTRIBUTION WIDTH-CV 13.3 % (11.5-14.5)
[2018-09-13 05:36] LABS: ALANINE AMINOTRANSFERASE 11 U/L (21-72); ALBUMIN 3.8 gm/dL (3.5-5.0); ALKALINE PHOSPHATASE 57 U/L (50-136); ANION GAP 6 mmol/L (7-16); AST,SGOT 22 U/L (15-37); BILIRUBIN,TOTAL 0.4 mg/dL (0.0-1.0); BLOOD UREA NITROGEN 18 mg/dL (9-20); CALCIUM 9.8 mg/dL (8.4-10.2); CARBON DIOXIDE 38 mmol/L (22-30); CHLORIDE 92 mmol/L (98-107); CREATININE, serum 0.84 (0.66-1.25); GLUCOSE 103 mg/dL (74-106); POTASSIUM 4.7 mmol/L (3.4-5.0); SODIUM 136 mmol/L (137-145); TOTAL PROTEIN 7.3 gm/dL (6.4-8.2)
[2018-09-13] MEDS ORDERED: DALIRESP500 MCG PO (05:38)
[2018-09-13] MEDS ORDERED: TYLENOL 325MG325 MG PO (05:40)
[2018-09-13 05:44] LABS: ARTERIAL BLD GAS O2 SATURATION 84.7 % (92-100); ARTERIAL BLD GAS TCO2 CT 37.2; ARTERIAL BLOOD GAS BASE EXCESS 6.8 (-2-2); ARTERIAL BLOOD GAS HCO3 35.1 meq/L (22-26); ARTERIAL BLOOD GAS PO2 52.8 mmHg (80-100); ARTERIAL BLOOD GAS pH 7.33 (7.35-7.45)
[2018-09-13 05:45] LABS: ARTERIAL BLOOD GAS PCO2 68.9 mmHg (35-45)
[2018-09-13 05:56] LABS: TROPONIN-I < 0.012 ng/mL (0.000-0.035)
[2018-09-13] MEDS ORDERED: ZITHROMAX 250M250 MG PO ×2 (08:04)
[2018-09-13] MEDS ORDERED: PREDNISONE20 MG PO (08:04)
[2018-09-13] MEDS ORDERED: VANTIN 200200 MG/TAB PO (08:20)
[2018-09-13 08:33] VITALS: BP 127/85; PULSE 91
== END 2018-09-13 08:33 | disposition left against medical advice (07) ==
LOC: COL.ER 04:57
PROVIDERS: Emergency Medicine
DX: J44.1 Chronic obstructive pulmonary disease with (acute) exacerbation (principal); J96.20 Acute and chronic respiratory failure, unspecified whether with hypoxia or hypercapnia; I10 Essential (primary) hypertension; C34.90 Malignant neoplasm of unspecified part of unspecified bronchus or lung; Z79.52 Long term (current) use of systemic steroids; Z79.51 Long term (current) use of inhaled steroids
CPT/HCPCS: J2930

== ENCOUNTER → 2018-09-19 | Outpatient (CLI) | payer MEDICARE, BC ==
[~2018-09-19] MED LIST changes: +DALIRESP500 MCG PO; +VANTIN 200200 MG/TAB PO; +ZITHROMAX 250M250 MG PO
[2018-09-19 10:33] LABS: ARTERIAL BLD GAS O2 SATURATION 88.5 % (92-100); ARTERIAL BLOOD GAS BASE EXCESS 5.4 (-2-2); ARTERIAL BLOOD GAS HCO3 30.6 meq/L (22-26); ARTERIAL BLOOD GAS PCO2 46.7 mmHg (35-45); ARTERIAL BLOOD GAS PO2 54.2 mmHg (80-100); ARTERIAL BLOOD GAS pH 7.43 (7.35-7.45)
== END ==
LOC: COL.PUL 10:00
PROVIDERS: Internal Medicine Pulmonary Disease
DX: J96.12 Chronic respiratory failure with hypercapnia (principal)

== ENCOUNTER → 2019-01-20 | Outpatient (CLI) | payer MEDICARE, BC | LOC: COL.RAD 08:46 | DX: C34.32 Malignant neoplasm of lower lobe, left bronchus or lung (principal); J90 Pleural effusion, not elsewhere classified | CPT/HCPCS: Q9967 ==

== ENCOUNTER 2019-04-06 20:45 | Emergency (ER) | payer MEDICARE, BC ==
[~2019-04-06] VITALS: Ht 177.8 cm; Wt 84.1 kg
[2019-04-06 21:17] LABS: BASO # 0.1 (0.0-0.2); BASO % 0.9 % (0.0-2.0); EOS # 0.2 (0.0-0.7); EOS % 3.6 % (0-4.0); GRAN # 3.8 (1.4-6.5); GRAN % 71.1 % (42.2-75.2); HEMOGLOBIN 13.9 g/dl (13.5-18.0); LYMPH # 0.6 (1.2-3.4); MEAN CELL VOLUME 101 fl (80.0-100.0); MEAN CORPUSCULAR HEMOGLOBIN 34 pg (27.0-31.0); MEAN CORPUSCULAR HGB CONC 34 g/dl (33.0-37.0); MEAN PLATELET VOLUME 10.3 fl (7.4-10.4); MONO # 0.6 (0.1-0.6); PLATELET COUNT 140 K/mm3 (130-400); RED BLOOD COUNT 4.07 M/mm3 (4.20-5.60); REDCELL DISTRIBUTION WIDTH-CV 12.1 % (11.5-14.5)
[2019-04-06 21:28] LABS: ALANINE AMINOTRANSFERASE 14 U/L (21-72); ALBUMIN 4.5 gm/dL (3.5-5.0); ALKALINE PHOSPHATASE 61 U/L (50-136); ANION GAP 7 mmol/L (7-16); AST,SGOT 22 U/L (15-37); BILIRUBIN,TOTAL 0.4 mg/dL (0.0-1.0); BLOOD UREA NITROGEN 21 mg/dL (9-20); CALCIUM 9.6 mg/dL (8.4-10.2); CARBON DIOXIDE 32 mmol/L (22-30); CHLORIDE 99 mmol/L (98-107); CREATINE KINASE 70 U/L (55-170); CREATININE, serum 0.88 (0.66-1.25); GLUCOSE 151 mg/dL (74-106); MAGNESIUM 1.8 mg/dL (1.6-2.3); POTASSIUM 4.4 mmol/L (3.4-5.0); SODIUM 138 mmol/L (137-145); TOTAL PROTEIN 7.5 gm/dL (6.4-8.2)
[2019-04-06 21:50] LABS: PROTHROMBIN TIME 11.5 SECONDS (9.7-12.8)
[2019-04-06] MEDS ORDERED: PREDNISONE 2.52.5 MG PO (21:56)
[2019-04-06 22:09] LABS: TROPONIN-I < 0.012 ng/mL (0.000-0.035)
[2019-04-06 23:30] VITALS: BP 147/98; PULSE 69; TEMP 98
== END 2019-04-06 23:30 | disposition home or self-care (01) ==
LOC: COL.ER 20:45
PROVIDERS: Emergency Medicine
DX: R00.2 Palpitations (principal); J44.9 Chronic obstructive pulmonary disease, unspecified; I48.91 Unspecified atrial fibrillation; I10 Essential (primary) hypertension; Z90.49 Acquired absence of other specified parts of digestive tract; Z85.118 Personal history of other malignant neoplasm of bronchus and lung
CPT/HCPCS: J7030

== ENCOUNTER → 2019-08-03 | Outpatient (CLI) | payer MEDICARE, BC ==
[~2019-08-03] MED LIST changes: +LASIX 20MG TABL20 MG PO; +MUCINEX 60600 MG/TA1 PO; +PERFOROMIS20 MCG/2 M INH; +PREDNISONE 2.52.5 MG PO; +PULMICORT R1 MG/2 ML INH
== END ==
LOC: COL.LAB 08:00
DX: Z20.828 Contact with and (suspected) exposure to other viral communicable diseases (principal)

== ENCOUNTER 2019-08-05 16:47 | Inpatient (IN) | payer MEDICARE, BC ==
[~2019-08-05] VITALS: Ht 177.8 cm; Wt 89.6 kg
[2019-08-05] VITALS (112 sets, daily range): BP systolic 157; BP diastolic 98; PULSE 68; TEMP 97.8; O2SAT 90–99
[~2019-08-05 16:47] MED LIST changes: -LASIX 20MG TABL20 MG PO; -MUCINEX 60600 MG/TA1 PO
[2019-08-05 17:32] LABS: BASO % 0.7 % (0.0-2.0); EOS # 0.3 (0.0-0.7); GRAN # 3.9 (1.4-6.5); GRAN % 72.8 % (42.2-75.2); HEMATOCRIT 34.9 % (42.0-52.0); HEMOGLOBIN 12.5 g/dl (13.5-18.0); LYMPH # 0.4 (1.2-3.4); LYMPH % 8.2 % (20.0-51.0); MEAN CELL VOLUME 94 fl (80.0-100.0); MEAN CORPUSCULAR HEMOGLOBIN 34 pg (27.0-31.0); MEAN CORPUSCULAR HGB CONC 36 g/dl (33.0-37.0); MEAN PLATELET VOLUME 10.2 fl (7.4-10.4); MONO # 0.7 (0.1-0.6); MONO % 12.7 % (1.7-9.3); PLATELET COUNT 142 K/mm3 (130-400); RED BLOOD COUNT 3.71 M/mm3 (4.20-5.60); REDCELL DISTRIBUTION WIDTH-CV 11.9 % (11.5-14.5)
[2019-08-05 17:43] LABS: ALANINE AMINOTRANSFERASE 18 U/L (4-49); ALKALINE PHOSPHATASE 56 U/L (50-136); ANION GAP 6 mmol/L (7-16); AST,SGOT 32 U/L (15-37); BILIRUBIN,TOTAL 0.5 mg/dL (0.0-1.0); BLOOD UREA NITROGEN 16 mg/dL (9-20); CARBON DIOXIDE 29 mmol/L (22-30); CREATININE, serum 0.69 (0.66-1.25); GLUCOSE 93 mg/dL (74-106); POTASSIUM 4.5 mmol/L (3.4-5.0); SODIUM 121 mmol/L (137-145); TOTAL PROTEIN 6.7 gm/dL (6.4-8.2)
[2019-08-05 17:46] LABS: CHLORIDE 86 mmol/L (98-107)
[2019-08-05 17:59] LABS: TROPONIN-I < 0.012 ng/mL (0.000-0.035)
[2019-08-05 18:59] LABS: ARTERIAL BLD GAS O2 SATURATION 93.8 % (92-100); ARTERIAL BLD GAS TCO2 CT 25.4; ARTERIAL BLOOD GAS BASE EXCESS -1.2 (-2-2); ARTERIAL BLOOD GAS HCO3 24.1 meq/L (22-26); ARTERIAL BLOOD GAS PCO2 42.2 mmHg (35-45); ARTERIAL BLOOD GAS PO2 71.2 mmHg (80-100); ARTERIAL BLOOD GAS pH 7.37 (7.35-7.45)
[2019-08-05] MEDS ORDERED: MUCINEX 60600 MG/TA1 PO (19:10)
[2019-08-05 19:11] LABS: CHOLESTEROL RISK RATIO 2.7; MAGNESIUM 1.5 mg/dL (1.6-2.3)
[2019-08-05] MEDS ORDERED: TYLENOL PM EXTR1 TA1 PO (19:14)
[2019-08-05 19:32] LABS: COLLECTION METHOD CLEAN CATCH
[2019-08-05 19:37] LABS: MUCOUS Present /lpf; PH 6 (5-8); SQUAMOUS EPITHELIAL None Seen /hpf; URINE APPEARANCE Clear; URINE BACTERIA None Seen /hpf; URINE BILIRUBIN Negative (NEGATIVE); URINE BLOOD Negative (NEGATIVE); URINE COLOR Yellow; URINE GLUCOSE Negative (NEGATIVE); URINE KETONE Negative (NEGATIVE); URINE LEUKOCYTE ESTERASE Negative (NEGATIVE); URINE NITRATE Negative (NEGATIVE); URINE PROTEIN(semi-quant) 1+ (NEGATIVE); URINE RBC 0-2 /hpf; URINE UROBILINOGEN Negative (NEGATIVE)
[2019-08-06] VITALS (947 sets, daily range): BP systolic 123–146; BP diastolic 81–90; PULSE 60–76; TEMP 97.4–98.3; O2SAT 86–100
[2019-08-06 05:37] LABS: BASO % 0.9 % (0.0-2.0); EOS # 0.3 (0.0-0.7); EOS % 6.3 % (0-4.0); GRAN % 68.2 % (42.2-75.2); HEMOGLOBIN 12.3 g/dl (13.5-18.0); LYMPH # 0.5 (1.2-3.4); LYMPH % 10.8 % (20.0-51.0); MEAN CELL VOLUME 94 fl (80.0-100.0); MEAN CORPUSCULAR HEMOGLOBIN 33 pg (27.0-31.0); MEAN CORPUSCULAR HGB CONC 35 g/dl (33.0-37.0); MEAN PLATELET VOLUME 9.9 fl (7.4-10.4); MONO # 0.6 (0.1-0.6); MONO % 13.3 % (1.7-9.3); PLATELET COUNT 153 K/mm3 (130-400); RED BLOOD COUNT 3.71 M/mm3 (4.20-5.60); REDCELL DISTRIBUTION WIDTH-CV 11.8 % (11.5-14.5)
[2019-08-06 05:46] LABS: CALCIUM 8.9 mg/dL (8.4-10.2); CREATININE, serum 0.63 (0.66-1.25); POTASSIUM 4.3 mmol/L (3.4-5.0)
--- NOTE | 2019-08-06 07:00 | NUR ---
Report received from Chandu Crouch. PT in bed resting with call light in reach, VENETIE IRA but denies needs.
--- NOTE | 2019-08-06 10:09 | NUR ---
Assessment charted. Assisted pt up to bathroom, gait is unsteady, almos parkinson like gait, assisted to get walker to help with shuffling feet. Pt had BM. Resting in bed otherwise asking repeadetly about plan for thoracentecis, let him know there has been no financial aid director visit yet. INT to RFA. VSS. 02 remains at 5L NC. Will continue to monitor.
--- NOTE | 2019-08-06 12:13 | NUR ---
Called Dr. Stephenson regarding NPO status, Dr. Ross came over to speak with pt and patient able to eat lunch.
--- NOTE | 2019-08-06 13:03 | NUR ---
SW completed intake assessment in doorway of patients room. Patient reported that he currently resides in [facility] with his son Igor [phone] as EMR and care support. Patient indicated that he has a DPOA, and that he utilizes a walker, and a breathing machine at night. Patient reports that his PCP is Dr. Bonilla and that he has an upcoming appotinemt on August 10. Patient reports that he gets his medications from [facility] with no complications. Patient asked for some items to be bought from home. Patient coordinated with son to have items bought in. Patient declined services at this time. Sw will continue to follow.
--- NOTE | 2019-08-06 16:37 | NUR ---
[facility] 1500 TILL [id number] Pt had emesis after receiving salt pill, states he has no nausea prior or after. changed linens and cleaned up patient Called Vandana with critical lab value for NA of 118 Gave salt pill again per Vandana Pt resting in bed with call light. Marni reese.
--- NOTE | 2019-08-06 18:40 | NUR ---
Pt resting in bed, ate supper well, resting quietly, denies nausea, pt has been up to bathroom several times over shift to void and have BM. Aware of NA levels, sitting at side of bed working on laptop, will give bedside shift report to nightshift nurse who will resume care.
--- NOTE | 2019-08-06 20:04 | NUR ---
patient relaxing in room, denies discomfort, understanding that his breathing is not the only problem, that low sodium is. patient is ok with that
[2019-08-07] VITALS (450 sets, daily range): BP systolic 116–148; BP diastolic 70–94; PULSE 61–136; TEMP 97.3–98.1; O2SAT 77–100
[2019-08-07 05:24] LABS: BASO % 0.8 % (0.0-2.0); EOS # 0.3 (0.0-0.7); EOS % 6.2 % (0-4.0); GRAN # 3.6 (1.4-6.5); HEMOGLOBIN 12.2 g/dl (13.5-18.0); LYMPH # 0.4 (1.2-3.4); LYMPH % 8.8 % (20.0-51.0); MEAN CELL VOLUME 95 fl (80.0-100.0); MEAN CORPUSCULAR HEMOGLOBIN 33 pg (27.0-31.0); MEAN CORPUSCULAR HGB CONC 35 g/dl (33.0-37.0); MEAN PLATELET VOLUME 10.5 fl (7.4-10.4); MONO # 0.6 (0.1-0.6); MONO % 12.8 % (1.7-9.3); PLATELET COUNT 145 K/mm3 (130-400); RED BLOOD COUNT 3.65 M/mm3 (4.20-5.60); REDCELL DISTRIBUTION WIDTH-CV 11.8 % (11.5-14.5)
[2019-08-07 05:29] LABS: HEMATOCRIT 34.5 % (42.0-52.0)
[2019-08-07 05:33] LABS: ALBUMIN 3.4 gm/dL (3.5-5.0); BILIRUBIN,TOTAL 0.4 mg/dL (0.0-1.0); CALCIUM 8.9 mg/dL (8.4-10.2); CREATININE, serum 0.7 (0.66-1.25); MAGNESIUM 1.6 mg/dL (1.6-2.3); POTASSIUM 4.5 mmol/L (3.4-5.0); TOTAL PROTEIN 6.1 gm/dL (6.4-8.2)
--- NOTE | 2019-08-07 07:00 | NUR ---
Bedside shift report received from JUNAID Randhawa. Patient is awake, alert, and responds appropriately. Full assessment completed, vital signs stable. Bed in lowest position, side rails up x2, call light and personal items within reach. Patient has no complaints or concerns at this time.
--- NOTE | 2019-08-07 12:34 | NUR ---
Patient's food tray withheld for thoracentesis that should happen later this afternoon.
--- NOTE | 2019-08-07 13:05 | NUR ---
Patient transferred to medical bed 311 via wheelchair with no complications. All personal belongings with patient and patient transferred on telemetry. Bedside shift report given to JUNAID Castro once in the room. Patient transferred to medical bed from wheelchair with no complications. Oxygen via nasal cannula continued at 5L. Bed in lowest position, side rails up x2, call light and personal belongings in place. Patient has no complaints or concerns at this time.
--- NOTE | 2019-08-07 13:13 | NUR ---
Report received from Carolyn RN at bedside, pt in bed resting comfortably, denies needs, prepped for thoracentesis with IR today and they will b e up to take patient shortly.
[2019-08-07 15:13] LABS: CALCIUM 9.2 mg/dL (8.4-10.2); CREATININE, serum 0.63 (0.66-1.25); POTASSIUM 4.9 mmol/L (3.4-5.0)
[2019-08-07 15:33] LABS: PLEURAL FLUID RBC 1000 /mm3 (0-0); PLEURAL FLUID WBC 1084 /mm3
[2019-08-07 15:44] LABS: GLUCOSE,PLEURAL FLUID 108 mg/dL
--- NOTE | 2019-08-07 16:08 | NUR ---
The patient transferred up to the medical floor today. SW asked the PA for PT/OT to be ordered. SW to continue to follow.
[2019-08-07 16:28] LABS: PLEURAL FLUID APPEARANCE HAZY; PLEURAL FLUID COLOR AMBER
--- NOTE | 2019-08-07 19:16 | NUR ---
Pt resting in bed, doing well, has some "minor pain" to L flank and back at [facility], scheduled tylenol given. PT resting, hoping to get some sleep tonight, bedside shift report given to JUNAID Kelley who will resume care.
--- NOTE | 2019-08-07 20:50 | NUR ---
Resting in bed. Assessment complete. Lungs diminished with wheezing on inspiration and expiration. Reports SOA with ambulation. Heart sounds normal. Bowels active x4. Pulses strong throughout. No edema noted. INT right forearm minimal infiltration-wrapped in warmth blanket. Restarted in left forearm. Denies pain. Denies other needs at this time. Will monitor.
--- NOTE | 2019-08-08 00:50 | NUR ---
Patient resting in bed. Denies needs. Call light in reach.
[2019-08-08 01:03] LABS: CALCIUM 9.2 mg/dL (8.4-10.2); CREATININE, serum 0.73 (0.66-1.25); POTASSIUM 4.6 mmol/L (3.4-5.0)
--- NOTE | 2019-08-08 01:20 | NUR ---
3% NS started at this time and verified by Ethel QUIROGA
[2019-08-08 03:00] VITALS: BP 130/76; PULSE 66; TEMP 97.5
[2019-08-08 05:22] LABS: BASO % 0.6 % (0.0-2.0); EOS # 0.2 (0.0-0.7); EOS % 4.7 % (0-4.0); GRAN # 3.3 (1.4-6.5); GRAN % 71.5 % (42.2-75.2); HEMOGLOBIN 12.3 g/dl (13.5-18.0); LYMPH # 0.4 (1.2-3.4); LYMPH % 8.6 % (20.0-51.0); MEAN CELL VOLUME 95 fl (80.0-100.0); MEAN CORPUSCULAR HEMOGLOBIN 33 pg (27.0-31.0); MEAN CORPUSCULAR HGB CONC 35 g/dl (33.0-37.0); MEAN PLATELET VOLUME 9.9 fl (7.4-10.4); MONO # 0.7 (0.1-0.6); MONO % 14.2 % (1.7-9.3); PLATELET COUNT 135 K/mm3 (130-400); RED BLOOD COUNT 3.68 M/mm3 (4.20-5.60)
[2019-08-08 05:24] LABS: HEMATOCRIT 35.1 % (42.0-52.0)
[2019-08-08 05:34] LABS: CREATININE, serum 0.65 (0.66-1.25); MAGNESIUM 1.7 mg/dL (1.6-2.3); POTASSIUM 4.9 mmol/L (3.4-5.0)
--- NOTE | 2019-08-08 05:43 | NUR ---
Sodium up to 124, chloride 88. Mara MATTHEW notified. Added orders for 3% NS at 30 ml/hr for 4 hours. Started on patient. Ethel QUIROGA verified.
--- NOTE | 2019-08-08 06:34 | NUR ---
Patient on 3% NS during night. Denies needs this AM. Call light in reach.
--- NOTE | 2019-08-08 07:09 | NUR ---
Report given to JUNAID Connolly
[2019-08-08 08:16] VITALS: BP 112/66; PULSE 77; TEMP 97.8
[2019-08-08 09:30] LABS: CREATININE, serum 0.76 (0.66-1.25); POTASSIUM 4.5 mmol/L (3.4-5.0)
--- NOTE | 2019-08-08 10:27 | NUR ---
Assessment complete. Pt sitting up in bed at this time. He is alert and oriente at this time. States he feels pretty gppd, denies pain. IV site CD&I, flushed well. 3%NS running at this time. Redraw scheduled to monitor NA levels. Fall precauttions in place due to unsteady gate, pt is aware. No other needs were expressed at this time .Call light is in reach.
--- NOTE | 2019-08-08 11:40 | NUR ---
Bulldozer/Loader/Compactor/Scraper attended clinical rounds with the team. SW met with patient to review discharge plan. Patient confirmed he has home oxygen set up through [facility]. PT/OT recommending Home with family assist. SW to continue to follow for discharge needs.
[2019-08-08 12:20] VITALS: BP 134/78; PULSE 89; TEMP 97
[2019-08-08 13:25] LABS: CALCIUM 9.1 mg/dL (8.4-10.2); CREATININE, serum 0.75 (0.66-1.25); POTASSIUM 4.9 mmol/L (3.4-5.0)
[2019-08-08 16:37] VITALS: BP 130/82; PULSE 78; TEMP 98.4
--- NOTE | 2019-08-08 16:54 | NUR ---
Pt has had an uneventful day. He has had minimal complaints. Ambulates around room with assistance from be dto chair to window bench. He is aware of the need to call for assistance before getting up. IV magnesium is complete at this time, IV site CD&I. States he is comfortable. No other needs at this time. Call light is in reach.
[2019-08-08 16:58] LABS: CALCIUM 9.3 mg/dL (8.4-10.2); CREATININE, serum 0.88 (0.66-1.25); POTASSIUM 5.1 mmol/L (3.4-5.0)
--- NOTE | 2019-08-08 17:12 | NUR ---
Notified Midlevel Brunilda Murray about most current sodium value of 127 to question whether or not to continue with 3% NS for another 4 hours.
--- NOTE | 2019-08-08 17:14 | NUR ---
Per midlevel Brunilda Murray Continuing 3% NS for 4 more hours. recheck sodium at 2100 tonight.
[2019-08-08 20:05] VITALS: BP 135/74; PULSE 82; TEMP 97.9
--- NOTE | 2019-08-08 20:54 | NUR ---
Resting in bed. Assessment complete. Left lower lobe crackles otherwise clear. Heart sounds normal. Bowels active x4. Pulses strong throughout. No edema noted. IV left forearm without complications-3% NS has 45 minutes left. Denies pain. Denies needs at this time. Call light in reach.
[2019-08-08 21:07] LABS: CALCIUM 9.1 mg/dL (8.4-10.2); CREATININE, serum 0.87 (0.66-1.25); POTASSIUM 4.5 mmol/L (3.4-5.0)
--- NOTE | 2019-08-08 21:30 | NUR ---
Patient sodium level 129 per Mara [employer] may stop infusion of 3% NS. Patient made aware and infusion stopped.
[2019-08-08 23:55] VITALS: BP 102/75; PULSE 64; TEMP 97.3
[2019-08-09 03:21] VITALS: BP 127/74; PULSE 70; TEMP 97.8
--- NOTE | 2019-08-09 06:11 | NUR ---
Patient had uneventful night. Up in bed this AM. Denies needs. Call light in reach.
[2019-08-09 07:21] LABS: CALCIUM 9.5 mg/dL (8.4-10.2); CREATININE, serum 0.77 (0.66-1.25); POTASSIUM 5.1 mmol/L (3.4-5.0)
[2019-08-09 07:27] LABS: BASO # 0.1 (0.0-0.2); BASO % 0.9 % (0.0-2.0); EOS # 0.2 (0.0-0.7); EOS % 4.2 % (0-4.0); GRAN # 3.9 (1.4-6.5); GRAN % 70.8 % (42.2-75.2); HEMATOCRIT 37.9 % (42.0-52.0); HEMOGLOBIN 12.7 g/dl (13.5-18.0); LYMPH # 0.5 (1.2-3.4); LYMPH % 9.3 % (20.0-51.0); MEAN CELL VOLUME 98 fl (80.0-100.0); MEAN CORPUSCULAR HEMOGLOBIN 33 pg (27.0-31.0); MEAN CORPUSCULAR HGB CONC 34 g/dl (33.0-37.0); MEAN PLATELET VOLUME 10.4 fl (7.4-10.4); MONO # 0.8 (0.1-0.6); MONO % 14.4 % (1.7-9.3); PLATELET COUNT 165 K/mm3 (130-400); RED BLOOD COUNT 3.86 M/mm3 (4.20-5.60); REDCELL DISTRIBUTION WIDTH-CV 12.4 % (11.5-14.5)
--- NOTE | 2019-08-09 07:28 | NUR ---
Report given to JUNAID Wallace
[2019-08-09 08:07] VITALS: BP 133/81; PULSE 76; TEMP 98
--- NOTE | 2019-08-09 09:00 | NUR ---
Assessment complete. Pt sitting up in chair finishing breakfast, A&O x 3. Physical assessment unremarkable. Pt denies pain at this time, c/o slight discomfort intermittently around thoracentesis site in left back. Saline lock IV to left forearm without s/s of complications. No further needs reported. Call light in reach.
[2019-08-09 11:32] VITALS: BP 124/76; PULSE 73; TEMP 98.1
--- NOTE | 2019-08-09 11:36 | NUR ---
First visit from the computer specialist. No needs right now.
[2019-08-09] MEDS ORDERED: LASIX 20MG TABL20 MG PO (12:03)
--- NOTE | 2019-08-09 14:30 | NUR ---
Discharge instructions reviewed with pt regarding new medication, follow-up appointments, and lab orders. Pt verbalizes understanding, awaiting items from safe via warehouse order picker then will receive ride from his son.
--- NOTE | 2019-08-09 16:07 | NUR ---
Optometric Tech met with patient as SW received a consult from PT that patient would benefit from rollator. DONNIE provided prices from [employer], [employer], [employer], and [employer]. Patient reports he plans to order one online when he gets home. DONNIE collaborated with PARK Fleming who advised patient could take rollator that was donated to the hospital home with him until his new one arrives after he orders it. Patient is agreeable to this and states he will return the rollater when the one he purchases arrives. DONNIE read IM form aloud to patient who verbalized understanding and provided verbal consent as signature. DONNIE provided copy to patient and placed original in chart. Patient to discharge home today. No additional needs at this time.
== END 2019-08-09 15:00 | disposition home or self-care (01) | DRG 644 ==
LOC: COL.ER 16:47 → IMCU 19:27 → MEDICAL 08-07 13:13
PROVIDERS: Internal Medicine; Nurse Practitioner; Nurse Practitioner Family; Physician Assistant; Student in an Organized Health Care Education/Training Program; ADMIT Student in an Organized Health Care Education/Training Program
PROC: 0W9B3ZZ Drainage of Left Pleural Cavity, Percutaneous Approach (ICD-10-PCS; principal; 2019-08-07)
DX: E22.2 Syndrome of inappropriate secretion of antidiuretic hormone (principal); J91.8 Pleural effusion in other conditions classified elsewhere; J96.11 Chronic respiratory failure with hypoxia; C34.32 Malignant neoplasm of lower lobe, left bronchus or lung; E46 Unspecified protein-calorie malnutrition; Z87.891 Personal history of nicotine dependence; Z88.0 Allergy status to penicillin; E83.42 Hypomagnesemia; I48.91 Unspecified atrial fibrillation; D64.9 Anemia, unspecified; Z99.81 Dependence on supplemental oxygen; Z68.27 Body mass index [BMI] 27.0-27.9, adult; J44.9 Chronic obstructive pulmonary disease, unspecified
CPT/HCPCS: 99223-AI; 99232-AI; 99233-AI; 99239; J1650; J2405; J3475; J7030; J7131; J7512

== ENCOUNTER → 2019-08-31 | Outpatient (CLI) | payer MEDICARE, BC ==
[~2019-08-31] VITALS: Ht 177.8 cm; Wt 84.1 kg
[~2019-08-31] MED LIST changes: +LASIX 20MG TABL20 MG PO; +MUCINEX 60600 MG/TA1 PO
[2019-08-31 07:47] VITALS: BP 103/72; PULSE 70; TEMP 97.4
[2019-08-31 09:30] VITALS: BP 91/45; PULSE 67
--- NOTE | 2019-08-31 09:30 | NUR ---
Patient brought back from Endo room 1 to [facility] via cart. Placed on monitors, stable. Report recieved from Swathi QUIROGA. Patient denies any SOB or pain. Son at bedside. Requesting milk and applesauce. Orders for chest x-ray in place. Radiology made aware. Call maciel within reach. Will continue to monitor.
[2019-08-31 09:45] VITALS: BP 116/70; PULSE 82
--- NOTE | 2019-08-31 09:45 | NUR ---
Patient tolerating food and drink without difficulty. X-ray complete, awaiting results. Patient requesting water and muffin. Vital signs stable. Will continue to monitor.
[2019-08-31 10:00] VITALS: BP 118/67; PULSE 79
--- NOTE | 2019-08-31 10:00 | NUR ---
MD made aware of x-ray results, patient may be discharged. Patient states he is feeling well. No complaints of pain or SOB. Bandage to left chest wall with minimal amount of dry bloody drainage. Patient and family educated on care and s/s infection. verbalized understanding. Patient states he is ready to go home at this time.
--- NOTE | 2019-08-31 10:15 | NUR ---
Discharge instructions reviewed with patient and son. Follow up appoinment already made for 09/03. All questions answered. Patient to get dressed at this time.
[2019-08-31 10:19] LABS: PLEURAL FLUID RBC 2000 /mm3 (0-0); PLEURAL FLUID WBC 2091 /mm3
[2019-08-31 10:23] LABS: PLEURAL FLUID COLOR YELLOW
[2019-08-31 10:24] LABS: PLEURAL FLUID APPEARANCE CLEAR
[2019-08-31 10:25] LABS: GLUCOSE,PLEURAL FLUID 89 mg/dL; TOTAL PROTEIN,PLEURAL FLUID 4.5 gm/dL
--- NOTE | 2019-08-31 10:25 | NUR ---
Patient brought down to lobby via wheel chair. Discharged on home O2 at 6L via NC. Placed in [employer] car. To be driven home by patients son.
== END ==
LOC: SDCO 08-03 08:30
PROVIDERS: Internal Medicine Pulmonary Disease
DX: J90 Pleural effusion, not elsewhere classified (principal); C34.92 Malignant neoplasm of unspecified part of left bronchus or lung; J44.9 Chronic obstructive pulmonary disease, unspecified; Z87.891 Personal history of nicotine dependence; Z79.51 Long term (current) use of inhaled steroids; Z88.0 Allergy status to penicillin; Z11.59 Encounter for screening for other viral diseases
CPT/HCPCS: 19804

== ENCOUNTER → 2019-09-14 | Outpatient (CLI) | payer MEDICARE, BC | LOC: COL.VAS 14:13 | DX: C34.32 Malignant neoplasm of lower lobe, left bronchus or lung (principal); J90 Pleural effusion, not elsewhere classified ==

== ENCOUNTER → 2019-09-14 | Outpatient (CLI) | payer MEDICARE, BC ==
[2019-09-14 15:37] LABS: ALBUMIN 4.1 gm/dL (3.5-5.0); BILIRUBIN,TOTAL 0.3 mg/dL (0.0-1.0); CALCIUM 9.2 mg/dL (8.4-10.2); CREATININE, serum 0.88 (0.66-1.25); POTASSIUM 4.5 mmol/L (3.4-5.0); TOTAL PROTEIN 7.3 gm/dL (6.4-8.2)
== END ==
LOC: COL.LAB 14:15
PROVIDERS: Family Medicine
DX: E87.1 Hypo-osmolality and hyponatremia (principal)

== ENCOUNTER 2019-12-29 09:54 | Emergency (ER) | payer MEDICARE, BC ==
[~2019-12-29] VITALS: Ht 177.8 cm; Wt 81.8 kg
[2019-12-29 10:30] VITALS: TEMP 97.1
[2019-12-29 11:44] LABS: BASO # 0.1 (0.0-0.2); BASO % 0.9 % (0.0-2.0); EOS # 0.2 (0.0-0.7); EOS % 3.8 % (0-4.0); GRAN # 4.8 (1.4-6.5); GRAN % 75.8 % (42.2-75.2); HEMATOCRIT 32.9 % (42.0-52.0); HEMOGLOBIN 11.2 g/dl (13.5-18.0); LYMPH # 0.6 (1.2-3.4); LYMPH % 9.9 % (20.0-51.0); MEAN CELL VOLUME 102 fl (80.0-100.0); MEAN CORPUSCULAR HEMOGLOBIN 35 pg (27.0-31.0); MEAN CORPUSCULAR HGB CONC 34 g/dl (33.0-37.0); MEAN PLATELET VOLUME 10.3 fl (7.4-10.4); MONO # 0.6 (0.1-0.6); MONO % 9.4 % (1.7-9.3); PLATELET COUNT 145 K/mm3 (130-400); RED BLOOD COUNT 3.24 M/mm3 (4.20-5.60)
[2019-12-29 11:53] LABS: ALANINE AMINOTRANSFERASE 14 U/L (4-49); ALBUMIN 4.1 gm/dL (3.5-5.0); ALKALINE PHOSPHATASE 53 U/L (50-136); ANION GAP 6 mmol/L (7-16); AST,SGOT 27 U/L (15-37); BILIRUBIN,TOTAL 0.6 mg/dL (0.0-1.0); BLOOD UREA NITROGEN 27 mg/dL (9-20); CALCIUM 9.6 mg/dL (8.4-10.2); CARBON DIOXIDE 32 mmol/L (22-30); CHLORIDE 97 mmol/L (98-107); CREATININE, serum 0.97 (0.66-1.25); GLUCOSE 88 mg/dL (74-106); LIPASE 104 U/L (23-300); POTASSIUM 4.5 mmol/L (3.4-5.0); SODIUM 135 mmol/L (137-145); TOTAL PROTEIN 7.1 gm/dL (6.4-8.2)
[2019-12-29 12:35] LABS: TROPONIN-I < 0.012 ng/mL (0.000-0.035)
[2019-12-29 14:09] LABS: COLLECTION METHOD CLEAN CATCH
[2019-12-29 14:16] LABS: MUCOUS Present /lpf; PH 5 (5-8); SQUAMOUS EPITHELIAL None Seen /hpf; URINE APPEARANCE Clear; URINE BACTERIA None Seen /hpf; URINE BILIRUBIN Negative (NEGATIVE); URINE BLOOD Negative (NEGATIVE); URINE COLOR Yellow; URINE GLUCOSE Negative (NEGATIVE); URINE KETONE Negative (NEGATIVE); URINE LEUKOCYTE ESTERASE Negative (NEGATIVE); URINE NITRATE Negative (NEGATIVE); URINE PROTEIN(semi-quant) Negative (NEGATIVE); URINE RBC 0-2 /hpf; URINE UROBILINOGEN Negative (NEGATIVE)
[2019-12-29] MEDS ORDERED: DOXYCYCLINE 10100 MG PO (15:56)
[2019-12-29] MEDS ORDERED: OMNICEF 300MG300 MG PO (15:56)
[2019-12-29] MEDS ORDERED: PREDNISONE20 MG PO (15:56)
[2019-12-29 17:15] VITALS: BP 112/68; PULSE 79
== END 2019-12-29 17:15 | disposition home or self-care (01) ==
LOC: COL.ER 09:54
PROVIDERS: Emergency Medicine
DX: J44.1 Chronic obstructive pulmonary disease with (acute) exacerbation (principal); J91.8 Pleural effusion in other conditions classified elsewhere; C34.90 Malignant neoplasm of unspecified part of unspecified bronchus or lung; Z88.0 Allergy status to penicillin; Z79.51 Long term (current) use of inhaled steroids
CPT/HCPCS: A9284; J7512; Q9967

== ENCOUNTER → 2020-01-02 | Outpatient (CLI) | payer MEDICARE, BC ==
[~2020-01-02] VITALS: Ht 177.8 cm; Wt 81.8 kg
[~2020-01-02] MED LIST changes: +OMNICEF 300MG300 MG PO; +ONE-A-DAY ESSE1 EACH PO
[2020-01-02 07:16] VITALS: BP 144/77; PULSE 56; TEMP 97.6
--- NOTE | 2020-01-02 07:40 | NUR ---
TO RM 1 AT 0636- CALL LIGHT IN REACH WILL CALL SON FOR RIDE HOME.
[2020-01-02 09:05] VITALS: BP 130/79; PULSE 57; TEMP 97.8
--- NOTE | 2020-01-02 09:05 | NUR ---
Patient brought back to [facility] bay 1 via cart placed on monitors. Vital signs stable. Radiology contacted to come over for chest ray. Patient denies pain or SOB. Placed back on 2L via NC. Patient requests ice water, muffin with butter, and applesauce. Call maciel within reach, will continue to monitor.
[2020-01-02 09:13] VITALS: TEMP 97.8
[2020-01-02 09:15] VITALS: BP 144/81; PULSE 60
--- NOTE | 2020-01-02 09:15 | NUR ---
Radiology at bedside for x-ray. Following x ray patient given snacks and drinks. Tolerating without difficulty. Will continue to monitor.
[2020-01-02 09:30] VITALS: BP 130/89; PULSE 63
--- NOTE | 2020-01-02 09:30 | NUR ---
Patient ambulated to bathroom without difficulty. Portable oxygen taken with patient. Awaiting results of x-ray. Will continue to monitor.
--- NOTE | 2020-01-02 09:45 | NUR ---
Dr. Ha in patients room to go over results of chest x-ray. Son on phone to to listen in. Dr. Ha states patient may go home, needs chest x ray schduled at [facility] tomorrow AM. Appointment made and reviewed with patient.
--- NOTE | 2020-01-02 10:10 | NUR ---
Patient dishcarge instructions reviewed with patient. Bandaid to left back clean dry and intact. Patient switched to personal oxygen. To get dressed at this time.
--- NOTE | 2020-01-02 10:20 | NUR ---
Patient brought down to lobby via wheel chair. Son met at front door. Patient to be driven home by son.
[2020-01-02 12:40] LABS: PLEURAL FLUID RBC 2000 /mm3 (0-0); PLEURAL FLUID WBC 1432 /mm3
[2020-01-02 12:42] LABS: PLEURAL FLUID COLOR YELLOW
[2020-01-02 12:43] LABS: PLEURAL FLUID APPEARANCE HAZY
[2020-01-02 12:59] LABS: TOTAL PROTEIN,PLEURAL FLUID 4.1 gm/dL
== END ==
LOC: SDCO 06:24
PROVIDERS: Internal Medicine Pulmonary Disease
DX: J90 Pleural effusion, not elsewhere classified (principal); I27.20 Pulmonary hypertension, unspecified; Z85.118 Personal history of other malignant neoplasm of bronchus and lung; J96.12 Chronic respiratory failure with hypercapnia; I10 Essential (primary) hypertension; G47.33 Obstructive sleep apnea (adult) (pediatric); J44.1 Chronic obstructive pulmonary disease with (acute) exacerbation; E87.1 Hypo-osmolality and hyponatremia; Z88.0 Allergy status to penicillin; Z87.891 Personal history of nicotine dependence; Z79.52 Long term (current) use of systemic steroids; Z98.52 Vasectomy status; Z20.828 Contact with and (suspected) exposure to other viral communicable diseases
CPT/HCPCS: 19804

== ENCOUNTER 2020-02-23 10:27 | Emergency (ER) | payer MEDICARE, BC ==
[~2020-02-23] VITALS: Ht 177.8 cm; Wt 84.1 kg
[~2020-02-23 10:27] MED LIST changes: -PULMICORT R1 MG/2 ML INH; +PULMICORT0.5 MG/2 M IH
[2020-02-23 10:40] VITALS: TEMP 97.4
[2020-02-23 11:36] LABS: BASO % 0.5 % (0.0-2.0); EOS # 0.4 (0.0-0.7); EOS % 5.7 % (0-4.0); GRAN # 4.7 (1.4-6.5); GRAN % 74.4 % (42.2-75.2); HEMOGLOBIN 10.6 g/dl (13.5-18.0); LYMPH # 0.4 (1.2-3.4); LYMPH % 5.8 % (20.0-51.0); MEAN CELL VOLUME 100 fl (80.0-100.0); MEAN CORPUSCULAR HEMOGLOBIN 34 pg (27.0-31.0); MEAN CORPUSCULAR HGB CONC 34 g/dl (33.0-37.0); MEAN PLATELET VOLUME 10.2 fl (7.4-10.4); MONO # 0.8 (0.1-0.6); MONO % 13.1 % (1.7-9.3); PLATELET COUNT 153 K/mm3 (130-400); RED BLOOD COUNT 3.16 M/mm3 (4.20-5.60); REDCELL DISTRIBUTION WIDTH-CV 12.2 % (11.5-14.5)
[2020-02-23 11:43] LABS: HEMATOCRIT 31.6 % (42.0-52.0)
[2020-02-23 11:56] LABS: ALANINE AMINOTRANSFERASE 13 U/L (4-49); ALBUMIN 3.7 gm/dL (3.5-5.0); ALKALINE PHOSPHATASE 53 U/L (50-136); ANION GAP 5 mmol/L (7-16); AST,SGOT 25 U/L (15-37); BILIRUBIN,TOTAL 0.5 mg/dL (0.0-1.0); BLOOD UREA NITROGEN 26 mg/dL (9-20); C-REACTIVE PROTEIN 5.4 mg/dL (0.0-0.9); CARBON DIOXIDE 31 mmol/L (22-30); CHLORIDE 95 mmol/L (98-107); CREATININE, serum 0.97 (0.66-1.25); GLUCOSE 94 mg/dL (74-106); POTASSIUM 4.8 mmol/L (3.4-5.0); SODIUM 130 mmol/L (137-145); TOTAL PROTEIN 6.4 gm/dL (6.4-8.2)
[2020-02-23 12:15] LABS: TROPONIN-I < 0.012 ng/mL (0.000-0.035)
[2020-02-23 13:48] LABS: INR 1.1 (0.8-3.0); PROTHROMBIN TIME 12.5 SECONDS (9.7-12.8)
[2020-02-23 15:29] VITALS: BP 114/81; PULSE 67
== END 2020-02-23 15:39 | disposition home or self-care (01) ==
LOC: COL.ER 10:27
PROVIDERS: Nurse Practitioner
DX: J90 Pleural effusion, not elsewhere classified (principal); J44.9 Chronic obstructive pulmonary disease, unspecified; Z20.828 Contact with and (suspected) exposure to other viral communicable diseases; Z98.61 Coronary angioplasty status; Z85.828 Personal history of other malignant neoplasm of skin; Z85.118 Personal history of other malignant neoplasm of bronchus and lung; Z87.891 Personal history of nicotine dependence; Z88.0 Allergy status to penicillin

== ENCOUNTER 2020-03-27 12:52 | Emergency (ER) | payer MEDICARE, BC ==
[~2020-03-27] VITALS: Ht 177.8 cm; Wt 84.1 kg
[2020-03-27 12:54] VITALS: TEMP 97.8
[2020-03-27 13:10] LABS: BASO % 0.4 % (0.0-2.0); EOS # 0.4 (0.0-0.7); EOS % 4.7 % (0-4.0); GRAN % 79.2 % (42.2-75.2); HEMOGLOBIN 10.6 g/dl (13.5-18.0); LYMPH # 0.5 (1.2-3.4); LYMPH % 6.8 % (20.0-51.0); MEAN CELL VOLUME 97 fl (80.0-100.0); MEAN CORPUSCULAR HEMOGLOBIN 33 pg (27.0-31.0); MEAN CORPUSCULAR HGB CONC 34 g/dl (33.0-37.0); MEAN PLATELET VOLUME 9.9 fl (7.4-10.4); MONO # 0.7 (0.1-0.6); MONO % 8.6 % (1.7-9.3); PLATELET COUNT 147 K/mm3 (130-400); RED BLOOD COUNT 3.22 M/mm3 (4.20-5.60); REDCELL DISTRIBUTION WIDTH-CV 12.3 % (11.5-14.5)
[2020-03-27 13:18] LABS: HEMATOCRIT 31.3 % (42.0-52.0)
[2020-03-27 13:19] LABS: ALANINE AMINOTRANSFERASE 14 U/L (4-49); ALBUMIN 3.9 gm/dL (3.5-5.0); ALKALINE PHOSPHATASE 48 U/L (50-136); ANION GAP 7 mmol/L (7-16); AST,SGOT 28 U/L (15-37); BILIRUBIN,TOTAL 0.4 mg/dL (0.0-1.0); BLOOD UREA NITROGEN 26 mg/dL (9-20); CALCIUM 9.4 mg/dL (8.4-10.2); CARBON DIOXIDE 29 mmol/L (22-30); CHLORIDE 91 mmol/L (98-107); CREATININE, serum 0.82 (0.66-1.25); GLUCOSE 90 mg/dL (74-106); LIPASE 94 U/L (23-300); POTASSIUM 4.1 mmol/L (3.4-5.0); SODIUM 127 mmol/L (137-145); TOTAL PROTEIN 6.7 gm/dL (6.4-8.2)
[2020-03-27 13:21] LABS: INR 1.1 (0.8-3.0)
[2020-03-27 13:33] LABS: TROPONIN-I < 0.012 ng/mL (0.000-0.035)
[2020-03-27] MEDS ORDERED: ULTRAM 50MG TAB50 MG PO (17:12)
[2020-03-27 17:49] VITALS: BP 105/68; PULSE 70
== END 2020-03-27 17:34 | disposition home or self-care (01) ==
LOC: COL.ER 12:52
PROVIDERS: Nurse Practitioner Primary Care
DX: J90 Pleural effusion, not elsewhere classified (principal); J44.9 Chronic obstructive pulmonary disease, unspecified; I10 Essential (primary) hypertension; Z85.118 Personal history of other malignant neoplasm of bronchus and lung; Z88.0 Allergy status to penicillin; Z87.891 Personal history of nicotine dependence; Z79.51 Long term (current) use of inhaled steroids
CPT/HCPCS: J3010; J7030

== ENCOUNTER → 2020-03-28 | Outpatient (CLI) | payer MEDICARE, BC ==
[~2020-03-28] MED LIST changes: +ULTRAM 50MG TAB50 MG PO
[2020-03-28 11:04] VITALS: BP 93/55; PULSE 88
[2020-03-28 12:23] VITALS: BP 101/65; PULSE 85
== END ==
LOC: COL.RAD 10:30
DX: J90 Pleural effusion, not elsewhere classified (principal)

== ENCOUNTER → 2020-03-28 | Outpatient (CLI) | payer MEDICARE, BC ==
[2020-03-28 12:34] LABS: BASO % 0.3 % (0.0-2.0); EOS % 0.1 % (0-4.0); GRAN # 11.5 (1.4-6.5); GRAN % 87.7 % (42.2-75.2); HEMOGLOBIN 11.6 g/dl (13.5-18.0); LYMPH # 0.4 (1.2-3.4); LYMPH % 2.9 % (20.0-51.0); MEAN CELL VOLUME 97 fl (80.0-100.0); MEAN CORPUSCULAR HEMOGLOBIN 32 pg (27.0-31.0); MEAN CORPUSCULAR HGB CONC 33 g/dl (33.0-37.0); MEAN PLATELET VOLUME 10.3 fl (7.4-10.4); MONO # 1.1 (0.1-0.6); MONO % 8.5 % (1.7-9.3); PLATELET COUNT 179 K/mm3 (130-400); REDCELL DISTRIBUTION WIDTH-CV 12.6 % (11.5-14.5)
[2020-03-28 12:41] LABS: ALBUMIN 4.1 gm/dL (3.5-5.0); BILIRUBIN,TOTAL 0.5 mg/dL (0.0-1.0); CALCIUM 10.1 mg/dL (8.4-10.2); CREATININE, serum 1.07 (0.66-1.25); POTASSIUM 5.1 mmol/L (3.4-5.0); TOTAL PROTEIN 7.4 gm/dL (6.4-8.2)
== END ==
LOC: COL.LAB 11:12
PROVIDERS: Internal Medicine Medical Oncology
DX: C34.2 Malignant neoplasm of middle lobe, bronchus or lung (principal); C34.32 Malignant neoplasm of lower lobe, left bronchus or lung

== ENCOUNTER 2020-04-07 10:28 | Inpatient (IN) | payer MEDICARE, BC ==
[~2020-04-07] VITALS: Ht 177.8 cm; Wt 85.8 kg
[2020-04-07] VITALS (241 sets, daily range): BP systolic 104–131; BP diastolic 76–81; PULSE 69–81; TEMP 97.9–98.5; O2SAT 78–100
[2020-04-07 11:18] LABS: BASO # 0.1 (0.0-0.2); BASO % 0.8 % (0.0-2.0); EOS # 0.3 (0.0-0.7); EOS % 4.3 % (0-4.0); GRAN # 4.7 (1.4-6.5); LYMPH # 0.4 (1.2-3.4); LYMPH % 6.7 % (20.0-51.0); MEAN CELL VOLUME 100 fl (80.0-100.0); MEAN CORPUSCULAR HGB CONC 33 g/dl (33.0-37.0); MEAN PLATELET VOLUME 9.5 fl (7.4-10.4); MONO # 0.6 (0.1-0.6); MONO % 9.5 % (1.7-9.3); PLATELET COUNT 228 K/mm3 (130-400); REDCELL DISTRIBUTION WIDTH-CV 12.5 % (11.5-14.5)
[2020-04-07 11:28] LABS: HEMATOCRIT 23.9 % (42.0-52.0); HEMOGLOBIN 7.8 g/dl (13.5-18.0); MEAN CORPUSCULAR HEMOGLOBIN 33 pg (27.0-31.0)
[2020-04-07 11:29] LABS: ALANINE AMINOTRANSFERASE 13 U/L (4-49); ALBUMIN 3.5 gm/dL (3.5-5.0); ALKALINE PHOSPHATASE 51 U/L (50-136); ANION GAP 5 mmol/L (7-16); AST,SGOT 24 U/L (15-37); BILIRUBIN,TOTAL 0.6 mg/dL (0.0-1.0); BLOOD UREA NITROGEN 18 mg/dL (9-20); CALCIUM 9.2 mg/dL (8.4-10.2); CARBON DIOXIDE 32 mmol/L (22-30); CHLORIDE 92 mmol/L (98-107); GLUCOSE 107 mg/dL (74-106); POTASSIUM 3.9 mmol/L (3.4-5.0); SODIUM 129 mmol/L (137-145); TOTAL PROTEIN 6.5 gm/dL (6.4-8.2)
[2020-04-07 11:42] LABS: TROPONIN-I < 0.012 ng/mL (0.000-0.035)
[2020-04-07] MEDS ORDERED: SPIRIVA RE2.5 MCG/Ac IH (14:00)
[2020-04-07 14:38] LABS: IRON,SERUM 32 ug/dL (35-150)
[2020-04-07 14:48] LABS: TOTAL IRON BINDING CAPACITY 199 ug/dL (261-462)
[2020-04-07 15:15] LABS: INR 1.1 (0.8-3.0); PROTHROMBIN TIME 12.6 SECONDS (9.7-12.8)
[2020-04-07 19:10] LABS: MEAN CELL VOLUME 100 fl (80.0-100.0); MEAN CORPUSCULAR HGB CONC 32 g/dl (33.0-37.0); MEAN PLATELET VOLUME 9.5 fl (7.4-10.4); PLATELET COUNT 256 K/mm3 (130-400); RED BLOOD COUNT 2.68 M/mm3 (4.20-5.60); REDCELL DISTRIBUTION WIDTH-CV 12.6 % (11.5-14.5)
[2020-04-07 19:11] LABS: HEMATOCRIT 26.9 % (42.0-52.0); HEMOGLOBIN 8.7 g/dl (13.5-18.0); MEAN CORPUSCULAR HEMOGLOBIN 32 pg (27.0-31.0)
--- NOTE | 2020-04-07 20:37 | NUR ---
PATIENT UP TO USE COMMODE TO HAVE BOWEL MOVEMENT PRODUCED ONLY URINE, PATIENT ABLE TO MOVE INDEPENDENTLY, FEELINGS OD WEAKNESS AFTER LYING BACK IN BED,
[2020-04-08] VITALS (729 sets, daily range): BP systolic 91–128; BP diastolic 58–84; PULSE 61–79; TEMP 97.5–98.6; O2SAT 54–100
[2020-04-08 00:48] LABS: MEAN CELL VOLUME 99 fl (80.0-100.0); MEAN CORPUSCULAR HGB CONC 33 g/dl (33.0-37.0); MEAN PLATELET VOLUME 9.4 fl (7.4-10.4); PLATELET COUNT 259 K/mm3 (130-400); RED BLOOD COUNT 2.65 M/mm3 (4.20-5.60); REDCELL DISTRIBUTION WIDTH-CV 12.6 % (11.5-14.5)
[2020-04-08 00:49] LABS: HEMATOCRIT 26.2 % (42.0-52.0); HEMOGLOBIN 8.6 g/dl (13.5-18.0); MEAN CORPUSCULAR HEMOGLOBIN 32 pg (27.0-31.0)
--- NOTE | 2020-04-08 02:00 | NUR ---
PATIENT UP TO USE RESTROOM AND STATES HE CANT SLEEP, AFTER STAFF LISTEN AND SPEAKS TO PATIENT, PATIENT IS READY TO GO SLEEP
--- NOTE | 2020-04-08 04:00 | NUR ---
PATIENT AWAKE AGAIN STILL ADMITS TO NOT SLEEPING, MEDS ADMINISTERED PATIENT TALK TO STAFF ESTENDED AMOUNT OF TIME, MAKING ATTEMPTS TO SLEEP
[2020-04-08 06:22] LABS: BASO # 0.1 (0.0-0.2); BASO % 0.9 % (0.0-2.0); EOS # 0.2 (0.0-0.7); EOS % 4.5 % (0-4.0); GRAN % 74.3 % (42.2-75.2); LYMPH # 0.4 (1.2-3.4); LYMPH % 7.5 % (20.0-51.0); MEAN CELL VOLUME 99 fl (80.0-100.0); MEAN CORPUSCULAR HGB CONC 33 g/dl (33.0-37.0); MEAN PLATELET VOLUME 9.4 fl (7.4-10.4); MONO # 0.7 (0.1-0.6); MONO % 12.2 % (1.7-9.3); PLATELET COUNT 218 K/mm3 (130-400); RED BLOOD COUNT 2.48 M/mm3 (4.20-5.60); REDCELL DISTRIBUTION WIDTH-CV 12.5 % (11.5-14.5)
[2020-04-08 06:29] LABS: HEMATOCRIT 24.6 % (42.0-52.0); MEAN CORPUSCULAR HEMOGLOBIN 32 pg (27.0-31.0)
[2020-04-08 06:34] LABS: CALCIUM 8.4 mg/dL (8.4-10.2); CREATININE, serum 0.72 (0.66-1.25); POTASSIUM 4.3 mmol/L (3.4-5.0)
--- NOTE | 2020-04-08 08:35 | NUR ---
at bedside and is going to do a thoracentesis on te left side. Patient has gotten procedure multiple times before. Started thoracentesis at 0850 and took 1.3L off. Labs were sent off.
--- NOTE | 2020-04-08 09:42 | NUR ---
Chaplain freeman for the patient while standing outside the door
--- NOTE | 2020-04-08 10:21 | NUR ---
Records Management Manager met with the patient to complete intake. The patient lives in [place] with his son, Igor. The patient has a walker and is on 6L of oxygen at baseline. He receives his oxygen supplies from [facility]. The patient's PCP is Dr. Villarreal and patient receives medications from [facility] [place] [place] with no difficulties. The patient does not have advanced directives in the EMR but states they are complete. The patient plans to return home at discharge. PT/OT to be ordered. DONNIE contacted the patient's son, Igor #[phone] to discuss discharge. Igor was agreeable. DONNIE discussed DPOA-HC paperwork. Igor to ask the patient where he can find it and then he should be able to provide a copy. DONNIE collaborated the above information with the patient's nurse.
[2020-04-08 10:27] LABS: GLUCOSE,PLEURAL FLUID 99 mg/dL; TOTAL PROTEIN,PLEURAL FLUID 3.6 gm/dL
[2020-04-08 10:34] LABS: ARTERIAL BLD GAS O2 SATURATION 99.5 % (92-100); ARTERIAL BLOOD GAS HCO3 29.9 meq/L (22-26); ARTERIAL BLOOD GAS pH 7.27 (7.35-7.45)
[2020-04-08 10:35] LABS: ARTERIAL BLOOD GAS PCO2 66.4 mmHg (35-45)
[2020-04-08 10:35] LABS: MEAN CELL VOLUME 100 fl (80.0-100.0); MEAN CORPUSCULAR HGB CONC 33 g/dl (33.0-37.0); MEAN PLATELET VOLUME 9.5 fl (7.4-10.4); PLATELET COUNT 251 K/mm3 (130-400); RED BLOOD COUNT 2.87 M/mm3 (4.20-5.60); REDCELL DISTRIBUTION WIDTH-CV 12.5 % (11.5-14.5)
--- NOTE | 2020-04-08 10:40 | NUR ---
ABG was drawn 2hrs after thoracentesis. called by RT with results. wants to change status of patient to IMCU and put patient on bipap and get another ABG 2 hours later. will call him with results.
[2020-04-08 10:47] LABS: HEMATOCRIT 28.8 % (42.0-52.0); HEMOGLOBIN 9.4 g/dl (13.5-18.0); MEAN CORPUSCULAR HEMOGLOBIN 33 pg (27.0-31.0)
[2020-04-08 11:07] LABS: PLEURAL FLUID RBC 2000 /mm3 (0-0); PLEURAL FLUID WBC 1484 /mm3
[2020-04-08 11:14] LABS: PLEURAL FLUID APPEARANCE CLEAR; PLEURAL FLUID COLOR YELLOW
[2020-04-08 13:25] LABS: ARTERIAL BLD GAS O2 SATURATION 94.6 % (92-100); ARTERIAL BLD GAS TCO2 CT 30.7; ARTERIAL BLOOD GAS BASE EXCESS 2.1 (-2-2); ARTERIAL BLOOD GAS PCO2 57.5 mmHg (35-45); ARTERIAL BLOOD GAS PO2 73.8 mmHg (80-100); ARTERIAL BLOOD GAS pH 7.32 (7.35-7.45)
[2020-04-08 20:30] LABS: MEAN CELL VOLUME 100 fl (80.0-100.0); MEAN CORPUSCULAR HGB CONC 33 g/dl (33.0-37.0); MEAN PLATELET VOLUME 9.7 fl (7.4-10.4); PLATELET COUNT 288 K/mm3 (130-400); RED BLOOD COUNT 2.93 M/mm3 (4.20-5.60); REDCELL DISTRIBUTION WIDTH-CV 12.5 % (11.5-14.5)
[2020-04-08 20:42] LABS: HEMATOCRIT 29.4 % (42.0-52.0); HEMOGLOBIN 9.6 g/dl (13.5-18.0); MEAN CORPUSCULAR HEMOGLOBIN 33 pg (27.0-31.0)
--- NOTE | 2020-04-08 21:15 | NUR ---
Patient resting in bed watching TV. Wearing BIPAP reports that he doesn't like wearing the mask but does report shortness of breath is improved after wearing it. VS stable at this time. Will continue to monitor.
[2020-04-08 21:21] LABS: ARTERIAL BLD GAS O2 SATURATION 99.5 % (92-100); ARTERIAL BLD GAS TCO2 CT 28.5; ARTERIAL BLOOD GAS BASE EXCESS 1.5 (-2-2); ARTERIAL BLOOD GAS HCO3 27.1 meq/L (22-26); ARTERIAL BLOOD GAS PO2 217.1 mmHg (80-100); ARTERIAL BLOOD GAS pH 7.38 (7.35-7.45)
[2020-04-09] VITALS (511 sets, daily range): BP systolic 92–132; BP diastolic 65–85; PULSE 59–116; TEMP 97.5–98.7; O2SAT 63–100
--- NOTE | 2020-04-09 00:26 | NUR ---
Placed back on BIPAP after break. Tolerated 6L oxymask well. Assisted with a bed bath and linen change. VS stable at this time. Will continue to monitor.
--- NOTE | 2020-04-09 01:15 | NUR ---
This nurse was reviewing patients telemetry rhythm. Questionable St elevation observed. Patient resting in bed; no complaints of chest pain or change in VS. RT notified to obtain an EKG.
--- NOTE | 2020-04-09 01:55 | NUR ---
Critical EKG report faxed to [facility] physician. Awaiting further orders.
--- NOTE | 2020-04-09 02:51 | NUR ---
Cardiology reviewed EKG. Reports it is "borderline". Per Dr. Jefferson- If patient is not experiencing any symptoms will just continue to monitor. If Troponin is elevated treatment will not change and can draw an additional troponin in the morning.
[2020-04-09 03:00] LABS: MEAN CELL VOLUME 98 fl (80.0-100.0); MEAN CORPUSCULAR HGB CONC 33 g/dl (33.0-37.0); MEAN PLATELET VOLUME 9.6 fl (7.4-10.4); PLATELET COUNT 258 K/mm3 (130-400); RED BLOOD COUNT 2.68 M/mm3 (4.20-5.60); REDCELL DISTRIBUTION WIDTH-CV 12.4 % (11.5-14.5)
[2020-04-09 03:05] LABS: HEMATOCRIT 26.3 % (42.0-52.0); HEMOGLOBIN 8.7 g/dl (13.5-18.0); MEAN CORPUSCULAR HEMOGLOBIN 32 pg (27.0-31.0)
[2020-04-09 03:12] LABS: ANION GAP 6 mmol/L (7-16); BLOOD UREA NITROGEN 18 mg/dL (9-20); CALCIUM 8.7 mg/dL (8.4-10.2); CARBON DIOXIDE 27 mmol/L (22-30); CHLORIDE 97 mmol/L (98-107); CREATININE, serum 0.72 (0.66-1.25); GLUCOSE 189 mg/dL (74-106); POTASSIUM 4.7 mmol/L (3.4-5.0); SODIUM 130 mmol/L (137-145)
[2020-04-09 03:25] LABS: TROPONIN-I < 0.012 ng/mL (0.000-0.035)
[2020-04-09 03:33] LABS: BAND 3 % (0-10); EOSINOPHIL 1 % (0-4); LYMPHOCYTE 1 % (20.0-51.0); NEUTROPHILS 92 % (42.0-75.2); PLATELET ESTIMATE NORMAL (NORMAL)
--- NOTE | 2020-04-09 20:15 | NUR ---
Assisted up to the commode. Patient transfered with standby assist only. Denies any pain and reports shortness of breath only with exertion. VS stable at this time. After voiding assisted back to recliner. Call light left within reach.
--- NOTE | 2020-04-09 22:00 | NUR ---
Report called to JUNAID Henriquez.
--- NOTE | 2020-04-09 22:47 | NUR ---
Patient transfered to medical floor; alert and oriented and in no distress upon transfer.
--- NOTE | 2020-04-09 23:00 | NUR ---
Patient arrived from ICU to medical unit. Alert and oriented x 4, and able to make needs known. Peripheral INT to left AC. Denies having SOB and dyspnea. LS CTA in upper lobes, diminished in lower. Respirations even and unlabored. On oxygen at 6 L/min via NC. Wears BIPAP at night. HRR. Telemetry in place. Capillary refill less than 3 secons. Non-tenting skin turgor. BSAx4. Abdomen soft and non-tender. 1+ edema BLE. Voices no questions, needs, or concerns at this time. Resting in bed with call light within reach. Reading book.
[2020-04-10 04:31] VITALS: BP 97/73; PULSE 85; TEMP 97.6
--- NOTE | 2020-04-10 05:32 | NUR ---
Patient has been wearing BIPAP this shift. Telemetry called around 0520 and reported that patient went into A-flutter. Called RT and new order for STAT EKG put in. Awaiting results at this time.
--- NOTE | 2020-04-10 06:06 | NUR ---
EKG results A-fib, rate of 80. Called to LESLIE Terry and updated. Patient has a history of A-fib. No new orders at this time.
[2020-04-10 07:48] LABS: MEAN CELL VOLUME 101 fl (80.0-100.0); MEAN CORPUSCULAR HGB CONC 32 g/dl (33.0-37.0); MEAN PLATELET VOLUME 9.6 fl (7.4-10.4); PLATELET COUNT 311 K/mm3 (130-400); REDCELL DISTRIBUTION WIDTH-CV 12.8 % (11.5-14.5)
[2020-04-10 07:50] LABS: HEMATOCRIT 30.3 % (42.0-52.0); HEMOGLOBIN 9.8 g/dl (13.5-18.0); MEAN CORPUSCULAR HEMOGLOBIN 33 pg (27.0-31.0)
[2020-04-10 08:01] LABS: CALCIUM 9.2 mg/dL (8.4-10.2); CREATININE, serum 0.77 (0.66-1.25); POTASSIUM 4.3 mmol/L (3.4-5.0)
[2020-04-10 08:05] VITALS: BP 109/68; PULSE 75; TEMP 97.5
[2020-04-10 08:54] LABS: BAND 7 % (0-10); LYMPHOCYTE 1 % (20.0-51.0); NEUTROPHILS 88 % (42.0-75.2)
[2020-04-10 08:57] LABS: PLATELET ESTIMATE NORMAL (NORMAL)
--- NOTE | 2020-04-10 10:12 | NUR ---
Pt assessment completed and charted, medications administered per may. Pt A&O, one assist in room. Pt has LAC IV that flushes well, no issues. LS have exp wheezes noted. Heart irregular rhythm, reg rate. Pt denies any SOB, N/V/D, chest pain, numbness or tingling. Pt has bandaid to Lt side mid back from prior thora. Pt denies pain, site CDI. BS active. Pt tolerated breakfast well, no issues noted. Pt on 6L NC at this time, states that is baseline for him. PT/OT ordered, pt has unsteady gait and uses walker for ambulation at home. Bed alarm on, call light within reach, pt instructed to call for help, verbalized understanding.
[2020-04-10 12:22] VITALS: BP 115/73; PULSE 83; TEMP 97.5
--- NOTE | 2020-04-10 12:38 | NUR ---
First visit from the helicopter crew chief. No needs right now.
[2020-04-10 16:14] VITALS: BP 123/66; PULSE 72; TEMP 97.3
--- NOTE | 2020-04-10 18:07 | NUR ---
Pt had uneventful day, worked w/ PT/OT, using walker for ambulation, educated on using call light for assistance. Bed alarm on, fall precautions in place. No concerns expressed.
[2020-04-10 19:21] VITALS: BP 124/80; PULSE 68; TEMP 98.2
--- NOTE | 2020-04-10 21:20 | NUR ---
Patient assessed at this time. Alert and oriented x 4, and able to make needs known. Reportd mild pain to left shoulder, but not ready for Ultram at this time. Peripheral INT to left AC. Denies SOB and dyspnea. On oxygen at 6 L/min via NC. Not ready for BIPAP at this time. LS expiratory wheezes. Respirations even and unlabored. HRR. Telemetry in place. Capillary refill less than 3 seconds. Non-tenting skin turgor. BSAx4. Abdomen soft and non-tender. 1+ edema BLE. Voices no questions, needs, or concerns at this time. Resting in bed with call light within reach. Reading book. Encouraged to call when ready for sleeping and pain medication. Voiced understanding.
[2020-04-10 23:22] VITALS: BP 113/70; PULSE 71; TEMP 98.1
[2020-04-11 03:09] VITALS: BP 109/63; PULSE 67; TEMP 98.3
--- NOTE | 2020-04-11 05:44 | NUR ---
Patient received PRN Ultram once this shift for shoulder pain. Has denied having pain and discomfort since. Has been wearing oxygen at 6 L/min via high flow nasal canula. Did not put on BIPAP until around midnight, but continues to wear it at this time. Voices no questions, needs, or concerns at this time. Resting in bed with call light within reach.
[2020-04-11 07:20] LABS: BASO % 0.1 % (0.0-2.0); GRAN # 10.8 (1.4-6.5); LYMPH # 0.4 (1.2-3.4); LYMPH % 3.1 % (20.0-51.0); MEAN CELL VOLUME 102 fl (80.0-100.0); MEAN CORPUSCULAR HGB CONC 32 g/dl (33.0-37.0); MEAN PLATELET VOLUME 9.8 fl (7.4-10.4); MONO # 0.9 (0.1-0.6); MONO % 7.3 % (1.7-9.3); PLATELET COUNT 262 K/mm3 (130-400); RED BLOOD COUNT 2.53 M/mm3 (4.20-5.60); REDCELL DISTRIBUTION WIDTH-CV 13.1 % (11.5-14.5)
[2020-04-11 07:23] LABS: HEMATOCRIT 25.9 % (42.0-52.0); HEMOGLOBIN 8.2 g/dl (13.5-18.0); MEAN CORPUSCULAR HEMOGLOBIN 32 pg (27.0-31.0)
[2020-04-11 07:25] VITALS: BP 118/55; PULSE 72; TEMP 97.2
[2020-04-11 07:35] LABS: CALCIUM 8.8 mg/dL (8.4-10.2); CREATININE, serum 0.8 (0.66-1.25); POTASSIUM 4.9 mmol/L (3.4-5.0)
[2020-04-11 09:26] LABS: ARTERIAL BLD GAS O2 SATURATION 98.7 % (92-100); ARTERIAL BLD GAS TCO2 CT 25.3; ARTERIAL BLOOD GAS BASE EXCESS -1.3 (-2-2); ARTERIAL BLOOD GAS PCO2 42.4 mmHg (35-45); ARTERIAL BLOOD GAS pH 7.37 (7.35-7.45)
[2020-04-11 09:28] LABS: ARTERIAL BLOOD GAS PO2 130.6 mmHg (80-100)
[2020-04-11] MEDS ORDERED: DOXYCYCLINE 10100 MG PO (09:43)
[2020-04-11] MEDS ORDERED: PROTONIX 40MG T40 MG PO (09:48)
[2020-04-11] MEDS ORDERED: PREDNISONE10 MG PO (09:49)
--- NOTE | 2020-04-11 10:16 | NUR ---
Pt assessment completed and charted, medications administered per may. Pt denies any pain, dizziness, N/V/D, chest pain, SOB. Pt has some exp wheezes noted throughout. LAC INT IV flushes w/o issue. BLE edema 1+ noted, pulses strong bilaterally, HRRR. Pt on 6L NC, turned down to 4L NC, satting well. No further needs expressed, pt to discharge this afternoon. Bed alarm on, call light within reach.
--- NOTE | 2020-04-11 11:06 | NUR ---
The patient is ready to d/c today. DONNIE followed up with the patient to review d/c plan and to discuss home health services and their benefits. The patient was interested in home health and chose [facility]. SW presented and read the IM form outloud to the patient. The patient verbalized understanding and gave SW approval to sign the form on his behalf. SW provided him with a copy. DONINE contacted and faxed a referral to Priya at [facility]. Awaiting screen. DONNIE contacted and updated the patient's son, Igor. Igor was agreeable to the above plan.
--- NOTE | 2020-04-11 11:16 | NUR ---
Pt assisted to shower by YAMIL shaikh. LAC INT IV removed, cath tip intact, no issues noted.
[2020-04-11 11:48] VITALS: BP 123/58; PULSE 120; TEMP 97.5
--- NOTE | 2020-04-11 11:57 | NUR ---
Priya, at [facility], reports that they are able to accept the patient for services. The patient is to discharge back home with her son today, 04/11, with home health services from [facility] for retirement/PT/OT. SW notified and faxed d/c orders to Priya at [facility]. No additional needs at this time.
--- NOTE | 2020-04-11 16:03 | NUR ---
Pt discharge instructions discussed and reviewed w/ patient who verbalized understanding, all questions answered, no further needs at this time. INT IV dc'd w/ cath tip intact and no issues. Pt escorted out via WC by Amanda LOBO. Son arrive in private car to take pt home.
== END 2020-04-11 16:06 | disposition home or self-care (01) | DRG 186 ==
LOC: COL.ER 10:28 → ICU 12:48 → MEDICAL 04-09 23:07
PROVIDERS: Emergency Medicine; Internal Medicine Critical Care Medicine; Internal Medicine Pulmonary Disease; Physician Assistant; Student in an Organized Health Care Education/Training Program; ADMIT Family Medicine
PROC: 0W9B3ZZ Drainage of Left Pleural Cavity, Percutaneous Approach (ICD-10-PCS; principal; 2020-04-08)
DX: J90 Pleural effusion, not elsewhere classified (principal); J96.21 Acute and chronic respiratory failure with hypoxia; J96.22 Acute and chronic respiratory failure with hypercapnia; J44.1 Chronic obstructive pulmonary disease with (acute) exacerbation; E87.3 Alkalosis; E87.1 Hypo-osmolality and hyponatremia; C34.32 Malignant neoplasm of lower lobe, left bronchus or lung; I48.0 Paroxysmal atrial fibrillation; G47.00 Insomnia, unspecified; M25.519 Pain in unspecified shoulder; D50.0 Iron deficiency anemia secondary to blood loss (chronic); Z20.822 Contact with and (suspected) exposure to COVID-19; I95.9 Hypotension, unspecified; Z88.0 Allergy status to penicillin; Z99.81 Dependence on supplemental oxygen; Z87.891 Personal history of nicotine dependence
CPT/HCPCS: 99222-AI; 99223-AI; 99232-AI; 99233-AI; 99239; C9113; J0692; J1650; J2920; J7030; J7512; Q9967

== ENCOUNTER 2020-04-13 10:57 | Inpatient (IN) | payer MEDICARE, BC ==
[2020-04-13] VITALS (340 sets, daily range): BP systolic 91–119; BP diastolic 65–87; PULSE 99–144; TEMP 98.3–99; O2SAT 64–100
[~2020-04-13] VITALS: Ht 177.8 cm; Wt 89.9 kg
[~2020-04-13 10:57] MED LIST changes: +PROTONIX 40MG T40 MG PO
[2020-04-13 11:21] LABS: BASO % 0.2 % (0.0-2.0); EOS # 0.1 (0.0-0.7); EOS % 1.3 % (0-4.0); GRAN # 8.6 (1.4-6.5); GRAN % 78.9 % (42.2-75.2); LYMPH # 0.8 (1.2-3.4); LYMPH % 7.4 % (20.0-51.0); MEAN CELL VOLUME 103 fl (80.0-100.0); MEAN CORPUSCULAR HGB CONC 32 g/dl (33.0-37.0); MONO # 1.2 (0.1-0.6); MONO % 11.4 % (1.7-9.3); RED BLOOD COUNT 3.36 M/mm3 (4.20-5.60); REDCELL DISTRIBUTION WIDTH-CV 13.1 % (11.5-14.5)
[2020-04-13 11:26] LABS: HEMATOCRIT 34.6 % (42.0-52.0); HEMOGLOBIN 10.9 g/dl (13.5-18.0); MEAN CORPUSCULAR HEMOGLOBIN 32 pg (27.0-31.0); PLATELET COUNT 384 K/mm3 (130-400)
[2020-04-13 11:38] LABS: ALBUMIN 3.7 gm/dL (3.5-5.0); BILIRUBIN,TOTAL 0.7 mg/dL (0.0-1.0); CALCIUM 9.2 mg/dL (8.4-10.2); CREATININE, serum 0.93 (0.66-1.25); POTASSIUM 4.2 mmol/L (3.4-5.0); TOTAL PROTEIN 6.8 gm/dL (6.4-8.2)
[2020-04-13 11:49] LABS: TROPONIN-I 0.013 ng/mL (0.000-0.035)
[2020-04-13 13:22] LABS: INR 1.1 (0.8-3.0); PROTHROMBIN TIME 12.2 SECONDS (9.7-12.8)
[2020-04-13 13:25] LABS: PARTIAL THROMBOPLASTIN TIME 31.9 SECONDS (26.0-37.0)
--- NOTE | 2020-04-13 14:26 | NUR ---
PT ADMITTED FROM ED WITH AFIB. PT ON DILT DRIP AT 2.5MG/HR AND HEPARIN AT 10ML/HR. PT WEARING 6L NC WHICH IS HOME 02. PT TRANSFERED TO BED. PT IS AXOX4. PT ORIENTED TO ROOM AND FLOOR. AKASH PINO NOTIFIED OF ARRIVAL. PTS HR ELEVATED IN THE 130-150'S. DILT INCREASED TO 5MG/HR. WILL CONTINUE TO MONITOR.
--- NOTE | 2020-04-13 14:38 | NUR ---
CALLED AND NOTIFIED OF HR 120-140'S, AND SOFT BP. ORDERS RECEIVED FOR PO DIG. WILL CONTINUE TO MONITOR.
[2020-04-13 14:48] LABS: COLLECTION METHOD CLEAN CATCH
[2020-04-13 14:54] LABS: MUCOUS Present /lpf; PH 5 (5-8); SQUAMOUS EPITHELIAL 0-2 /hpf; URINE APPEARANCE Clear; URINE BACTERIA None Seen /hpf; URINE BILIRUBIN Negative (NEGATIVE); URINE BLOOD Negative (NEGATIVE); URINE COLOR Yellow; URINE GLUCOSE Negative (NEGATIVE); URINE KETONE Negative (NEGATIVE); URINE LEUKOCYTE ESTERASE Negative (NEGATIVE); URINE NITRATE Negative (NEGATIVE); URINE PROTEIN(semi-quant) Negative (NEGATIVE); URINE RBC 0-2 /hpf; URINE UROBILINOGEN Negative (NEGATIVE); URINE WBC 0-2 /hpf
--- NOTE | 2020-04-13 16:02 | NUR ---
PT'S HR RANGING FROM 110-150'S. AKASH PINO AND NOTIFIED. ORDERS RECEIVED. PT UPDATED ON PLAN.
[2020-04-13 17:42] LABS: ARTERIAL BLD GAS O2 SATURATION 84.5 % (92-100); ARTERIAL BLD GAS TCO2 CT 29.6; ARTERIAL BLOOD GAS BASE EXCESS 4.4 (-2-2); ARTERIAL BLOOD GAS HCO3 28.4 meq/L (22-26); ARTERIAL BLOOD GAS PCO2 40.3 mmHg (35-45); ARTERIAL BLOOD GAS pH 7.47 (7.35-7.45)
[2020-04-13 17:43] LABS: ARTERIAL BLOOD GAS PO2 47.2 mmHg (80-100)
--- NOTE | 2020-04-13 20:00 | NUR ---
Assessment complete. Pt is AXO X3, denies having any pain at this time. Gets tachypnic while talking. RA IV and RF IV infusing free of complications. Pt assisted with the urinal. Pt is now sitting up in the bed reading his book and he denies further needs. Call light within reach.
[2020-04-14] VITALS (548 sets, daily range): BP systolic 71–122; BP diastolic 57–80; PULSE 68–100; TEMP 98–98.5; O2SAT 77–100
[2020-04-14 04:46] LABS: BASO % 0.3 % (0.0-2.0); EOS # 0.3 (0.0-0.7); EOS % 3.7 % (0-4.0); GRAN # 5.5 (1.4-6.5); GRAN % 72.8 % (42.2-75.2); LYMPH # 0.8 (1.2-3.4); LYMPH % 11.1 % (20.0-51.0); MEAN CELL VOLUME 103 fl (80.0-100.0); MEAN CORPUSCULAR HGB CONC 32 g/dl (33.0-37.0); MEAN PLATELET VOLUME 9.9 fl (7.4-10.4); MONO # 0.8 (0.1-0.6); PLATELET COUNT 287 K/mm3 (130-400); RED BLOOD COUNT 2.81 M/mm3 (4.20-5.60); REDCELL DISTRIBUTION WIDTH-CV 13.2 % (11.5-14.5)
[2020-04-14 04:47] LABS: HEMOGLOBIN 9.4 g/dl (13.5-18.0); MEAN CORPUSCULAR HEMOGLOBIN 33 pg (27.0-31.0)
[2020-04-14 04:58] LABS: ALBUMIN 2.8 gm/dL (3.5-5.0); BILIRUBIN,TOTAL 0.4 mg/dL (0.0-1.0); CALCIUM 8.2 mg/dL (8.4-10.2); CREATININE, serum 0.87 (0.66-1.25); POTASSIUM 4.1 mmol/L (3.4-5.0); TOTAL PROTEIN 5.5 gm/dL (6.4-8.2)
--- NOTE | 2020-04-14 07:00 | NUR ---
REPORT RECEIVED FROM JUNAID ANDERSON PATIENT SITTING UP IN BED EATING BREAKFAST. CURRENTLY IN SINUS RHYTHM ON TELE. AMIODARONE GTT AND HEPARIN GTT INFUSING AT APPRORIATE RATES.
--- NOTE | 2020-04-14 10:00 | NUR ---
DR. MARINO AND DR. CAZARES HAVE BEEN IN ROOM TO SEE PATIENT. PLAN TO TRANSITION HIM TO PO AMIODARONE THIS AFTERNOON AND ADD DAILY DOSE OF LASIX. PLAN TO KEEP HIM ON CURRENT HEPARIN GTT FOR ANTICOAGULATION.
--- NOTE | 2020-04-14 10:31 | NUR ---
Warfarin Initial Dosing Pharmacy Note Ordering Provider: Terrance Beckman MD Indication: Atrial flutter w/ RVR LABS: INR 1.1 Recommendation: New start warfarin. Start with 5mg qhs. Pt also taking amiodarone and doxycycline. Will monitor closely.
--- NOTE | 2020-04-14 12:47 | NUR ---
SW met with patient to conduct intake assessment. Patient lives at home in [place] with his son Igor (P# [phone]). Patient reports that is son Igor and son Noel ([phone]) are his DPOAs for . Patient reports PCP's office would have his paperwork. SW will follow up with PCP's office Saturday 04/15. Patient has a walker, wheelchair, and trilogy at home, but he reports not needing assistance with ADLs. Patient's PCP is Dr. Villrareal, and he uses [facility] for pharmacy needs. Patient plans to return home with his son upon discharge. Patient reports that his son Igor will transport him home. Patient denied questions or concerns at this time. Social work will continue to follow.
--- NOTE | 2020-04-14 18:34 | NUR ---
PT TO ROOM 347 PER WHEEL CHAIR FROM ICU. REPORT FROM BRIONNA QUIROGA ICU@1700. SETTLED PT TO ROOM. PT IS A/O X3 SET UP HEPARIN DRIP AND VERIFIED WITH BRIONNA QUIROGA. HEPARIN RUNNING @15.5 MLS/HR NEXT HEP XA @ 2044. PT SITTING IN RECLINER ATE SUPPER. VOIDED IN BR WITH WALKER FOR AMBULATION.
--- NOTE | 2020-04-14 21:23 | NUR ---
Pt sitting up in chair at this time. Pt did take night medications. He requested his melatonin at midnight or he would call when he was ready. Pt has no other concerns at this time. Pt lungs sounds were clear and heart sounds were normal S1 and S2 sounds. Pt wanted to set up his trilogy machine at this time. He stated he just like things done a certain way. I am at pt bedside and informed pt I would stay just for his safety because he will we moving from his bed to his candace and around his bed.
--- NOTE | 2020-04-15 | NUR ---
Pt heparin Xa was drawn at 2347. Pt is currently at 0.45. At this level the pt would decrease 100 units/hour. Pt currenty rate was at 15.5ml/hour he is not changed to 14.5ml/hr. Pt is currenty resting in bed. After changing pt batteries in his tele box it is working well. Pt has his call light within reach and his bed is in lowest position.
--- NOTE | 2020-04-15 00:15 | NUR ---
Tele called and stated that pt heart rate got as low as the high 30's. I'm currently at pt bedside. Pt was sleeping. Pt current heart rate is 61. Pt stated that he feels fine. Pt has his call light within reach and his bed is in lowest position. He is currently still on his trilogy.
[2020-04-15 04:38] VITALS: BP 113/84; PULSE 58; TEMP 97.6
--- NOTE | 2020-04-15 05:00 | NUR ---
Lab did come up to draw pt labs. Pt was in the restroom, labs has not returned but I did let another lab person know. She did draw pt lab, just waiting for results.
[2020-04-15 07:00] LABS: BASO % 0.2 % (0.0-2.0); EOS # 0.2 (0.0-0.7); EOS % 2.5 % (0-4.0); GRAN # 4.6 (1.4-6.5); GRAN % 74.9 % (42.2-75.2); LYMPH # 0.7 (1.2-3.4); LYMPH % 10.8 % (20.0-51.0); MEAN CELL VOLUME 104 fl (80.0-100.0); MEAN CORPUSCULAR HGB CONC 31 g/dl (33.0-37.0); MEAN PLATELET VOLUME 10.5 fl (7.4-10.4); MONO # 0.6 (0.1-0.6); MONO % 10.5 % (1.7-9.3); PLATELET COUNT 240 K/mm3 (130-400); RED BLOOD COUNT 2.73 M/mm3 (4.20-5.60); REDCELL DISTRIBUTION WIDTH-CV 13.2 % (11.5-14.5)
[2020-04-15 07:12] LABS: CALCIUM 8.4 mg/dL (8.4-10.2); POTASSIUM 4.2 mmol/L (3.4-5.0)
[2020-04-15 07:20] LABS: HEMATOCRIT 28.4 % (42.0-52.0); HEMOGLOBIN 8.8 g/dl (13.5-18.0); MEAN CORPUSCULAR HEMOGLOBIN 32 pg (27.0-31.0)
[2020-04-15 07:23] LABS: INR 1.2 (0.8-3.0); PROTHROMBIN TIME 13.2 SECONDS (9.7-12.8)
[2020-04-15 08:01] VITALS: BP 129/65; PULSE 76; TEMP 97.8
--- NOTE | 2020-04-15 09:04 | NUR ---
HEPARIN DRIP DISCONTINUED PER ORDERS. IV TO INT.
--- NOTE | 2020-04-15 09:47 | NUR ---
PATIENT RECONNECTED TO HEPARIN DRIP PER CARDIOLOGY ORDERS.
--- NOTE | 2020-04-15 10:04 | NUR ---
AM MEDICATIONS ADMINISTERED PER ORDERS. SHIFT ASSESSMENT COMPLETED. PATIENT DENIES ANY COMPLAINTS OF PAIN. CALL LIGHT IN REACH.
[2020-04-15 11:41] VITALS: BP 116/73; PULSE 66; TEMP 97.9
--- NOTE | 2020-04-15 12:05 | NUR ---
NO CHANGE ON HEPARIN DRIP. NEXT RE-DRAW IN AM PER PROTOCOL.
--- NOTE | 2020-04-15 16:12 | NUR ---
HEPARIN DRIP DISCONTINUED PER 'S ORDERS. ASPIRIN ADMINISTERED DIRECTED. PATIENT DENIES PAIN AT THIS TIME. CALL LIGHT IN REACH.
[2020-04-15 16:23] VITALS: BP 107/83; PULSE 62; TEMP 98.4
--- NOTE | 2020-04-15 18:50 | NUR ---
PATIENT ASSISTED TO EDGE OF BED TO EAT DINNER FROM THE CHAIR. CALL LIGHT WITHIN REACH. PATIENT DENIES ANY NEEDS AT THIS TIME. WILL REPORT OFF TO ONCOMING NURSE.
[2020-04-15 20:49] VITALS: BP 105/62; PULSE 66; TEMP 97.2
--- NOTE | 2020-04-15 22:23 | NUR ---
PATIENT'S BP IS 105/63. CALLED HOSPITALIST TO VERIFY GIVING THE AMIODERONE. HOSPITALIST SAID TO GO AHEAD AND GIVE IT. WILL MONITOR BLOOD PRESSURE.
--- NOTE | 2020-04-15 23:19 | NUR ---
PATIENT SITTING UP IN CHAIR. 5 L VIA NASAL CANNULA. NO COMPLAINTS OF PAIN. HE WILL CALL WHEN HE IS READY TO GO TO BED AND REQUESTED A KLONOPINE AT THAT TIME.
--- NOTE | 2020-04-15 23:45 | NUR ---
PATIENT READY FOR BED. kLONOPIN ADMINISTERED. PATIENT PUT CPAP MACHINE ON AND SETTLED INTO BED. REQUESTS THAT I MAKE SURE HE IS AWAKE AT 0615.
[2020-04-15 23:51] VITALS: BP 127/86; PULSE 66; TEMP 97.7
[2020-04-16 04:34] VITALS: BP 94/54; PULSE 55; TEMP 97.6
[2020-04-16 07:16] VITALS: BP 116/70; PULSE 57; TEMP 98.4
[2020-04-16 07:48] LABS: BASO % 0.3 % (0.0-2.0); EOS # 0.1 (0.0-0.7); EOS % 2.1 % (0-4.0); GRAN # 4.6 (1.4-6.5); GRAN % 73.2 % (42.2-75.2); LYMPH # 0.7 (1.2-3.4); LYMPH % 11.6 % (20.0-51.0); MEAN CELL VOLUME 104 fl (80.0-100.0); MEAN CORPUSCULAR HGB CONC 31 g/dl (33.0-37.0); MEAN PLATELET VOLUME 10.2 fl (7.4-10.4); MONO # 0.7 (0.1-0.6); MONO % 11.7 % (1.7-9.3); PLATELET COUNT 244 K/mm3 (130-400); RED BLOOD COUNT 2.69 M/mm3 (4.20-5.60); REDCELL DISTRIBUTION WIDTH-CV 13.2 % (11.5-14.5)
[2020-04-16 07:50] LABS: INR 1.2 (0.8-3.0); PROTHROMBIN TIME 13.5 SECONDS (9.7-12.8)
[2020-04-16 07:53] LABS: HEMOGLOBIN 8.8 g/dl (13.5-18.0); MEAN CORPUSCULAR HEMOGLOBIN 33 pg (27.0-31.0)
[2020-04-16 07:55] LABS: CALCIUM 8.4 mg/dL (8.4-10.2); CREATININE, serum 0.93 (0.66-1.25); POTASSIUM 4.3 mmol/L (3.4-5.0)
--- NOTE | 2020-04-16 09:21 | NUR ---
PATIENT AM MEDS ADMINISTERED AND SHIFT ASSESSMENT COMPLETE. PATIENT UP AMBULATING IN HALLWAYS WITH PT THIS MORNING. PATIENT CURRENTLY SITTING UP IN BEDSIDE CHAIR. O2 AT 5L VIA NASAL CANNULA. CALL LIGHT WITHIN REACH. PATIENT DENIES ANY NEEDS AT THIS TIME.
--- NOTE | 2020-04-16 10:18 | NUR ---
PATIENT CONSENT FORM FOR THORACENTESIS SIGNED AND PLACED ON PATIENTS CHART. PATIENT TAKEN DOWN VIA WHEELCHAIR BY ULTRASOUND. WILL WAIT FOR PATIENT ARRIVAL BACK TO ROOM 347.
--- NOTE | 2020-04-16 11:28 | NUR ---
PATIENT ARRIVED BACK TO ROOM 347 FROM THORACENTESIS. BANDAID TO LEFT BACK IS CD&I.
[2020-04-16 12:02] VITALS: BP 112/64; PULSE 66; TEMP 98.4
[2020-04-16 12:34] LABS: PLEURAL FLUID APPEARANCE CLEAR; PLEURAL FLUID COLOR YELLOW
[2020-04-16 12:35] LABS: PLEURAL FLUID RBC 2000 /mm3 (0-0); PLEURAL FLUID WBC 611 /mm3
[2020-04-16 12:51] LABS: GLUCOSE,PLEURAL FLUID 103 mg/dL; TOTAL PROTEIN,PLEURAL FLUID 3.1 gm/dL
--- NOTE | 2020-04-16 12:57 | NUR ---
PATIENT GIVEN PRN PO DOSE OF TYLENOL FOR PAIN POST-THORACENTESIS.
[2020-04-16 15:54] VITALS: BP 118/70; PULSE 66; TEMP 98.3
[2020-04-16] MEDS ORDERED: ASPIRIN E.C. 8181 MG PO (16:39)
[2020-04-16] MEDS ORDERED: PACERONE200 MG PO ×2 (16:43→18:05)
--- NOTE | 2020-04-16 17:17 | NUR ---
Sign Erector And Repairer met with patient who will be discharged today. Patient states he has already been set up with [facility]. DONNIE contacted Priya at [facility] who advised they were scheduled to start services but then patient ended up in the hospital. Priya states they can accept for services. DONNIE faxed clinical updates and discharge orders. No additional needs at this time.
--- NOTE | 2020-04-16 18:24 | NUR ---
PATIENTS RIGHT AC AND RIGHT FOREARM INT'S DISCONTINUED PER PENDING DISCHARGE. TIPS INTACT. PATIENT TOLERATED WELL. DISCHARGE INSTRUCTIONS REVIEWED WITH PATIENT. QUESTIONS SOUGHT AND ANSWERED. PATIENT PERSONAL BELONGINGS GATHERED. PATIENT TAKEN TO PERSONAL VEHICLE VIA WHEELCHAIR BY SURGICAL STAFF. PATIENT DISCHARGED.
== END 2020-04-16 18:24 | disposition home health service (06) | DRG 308 ==
LOC: COL.ER 10:57 → ICU 12:15 → SURG 04-14 17:27
PROVIDERS: Emergency Medicine; Internal Medicine Adult Congenital Heart Disease; Physician Assistant; Student in an Organized Health Care Education/Training Program; ADMIT Hospitalist
PROC: 0W9B3ZZ Drainage of Left Pleural Cavity, Percutaneous Approach (ICD-10-PCS; principal; 2020-04-16)
DX: I48.92 Unspecified atrial flutter (principal); I50.31 Acute diastolic (congestive) heart failure; C34.90 Malignant neoplasm of unspecified part of unspecified bronchus or lung; J96.11 Chronic respiratory failure with hypoxia; J96.12 Chronic respiratory failure with hypercapnia; J90 Pleural effusion, not elsewhere classified; E22.2 Syndrome of inappropriate secretion of antidiuretic hormone; I48.0 Paroxysmal atrial fibrillation; I95.9 Hypotension, unspecified; Z66 Do not resuscitate; J44.9 Chronic obstructive pulmonary disease, unspecified; D53.9 Nutritional anemia, unspecified; G47.00 Insomnia, unspecified; M25.519 Pain in unspecified shoulder; G89.29 Other chronic pain; Z99.81 Dependence on supplemental oxygen; Z88.0 Allergy status to penicillin; Z87.891 Personal history of nicotine dependence
CPT/HCPCS: 99222-AI; 99232-AI; 99233-AI; 99239; J0282; J1644; J1940; J7040; J7060; J7512

== ENCOUNTER 2020-05-06 07:03 | Outpatient (CLI) | payer MEDICARE, BC ==
[~2020-05-06] VITALS: Ht 177.8 cm; Wt 79.5 kg
[~2020-05-06 07:03] MED LIST changes: +PACERONE200 MG PO
[2020-05-06 07:52] VITALS: BP 101/73; PULSE 69; TEMP 97.7
[2020-05-06] MEDS ORDERED: PERFOROMIS20 MCG/2 M IH (08:07)
[2020-05-06] MEDS ORDERED: MUCINEX 60600 MG/TA1 PO (08:10)
[2020-05-06] MEDS ORDERED: TYLENOL 500MG500 MG PO (08:13)
[2020-05-06] MEDS ORDERED: ASPIRIN E.C. 8181 MG PO (08:14)
[2020-05-06] MEDS ORDERED: PACERONE200 MG PO (08:15)
[2020-05-06] MEDS ORDERED: PROTONIX 40MG T40 MG PO (08:16)
--- NOTE | 2020-05-06 08:31 | NUR ---
AMBULATED TO BATHROOM USING WALKER AND PORTABLE O2 TANK AT 5L PER NC. TOLERATED WELL AND AMBULATED BACK TO CART. PATIENT TAKEN TO ENDOSCOPY FOR PROCEDURE.
[2020-05-06 09:13] VITALS: BP 96/63; PULSE 71
--- NOTE | 2020-05-06 09:13 | NUR ---
TO RM 8 PER CART FROM ENDOSCOPY. RECEIVED CXR UPON RETURNING TO . AMBULATED TO BATHROOM WITH WALKER AND O2 AT 3L. 02 SAT DROPPED TO 85% UPON WALKING TO BATHROOM . ONCE BACK TO SATS UP 92-93%. SITTING ON SIDE OF BED EATING A MUFFIN.
[2020-05-06 09:30] VITALS: BP 107/65; PULSE 73
--- NOTE | 2020-05-06 09:30 | NUR ---
LAYED BACK DOWN AND RESTING QUIETLY
--- NOTE | 2020-05-06 09:45 | NUR ---
DR MANTILLA CALLED. OK'D TO BE DISCHARGED. FOLLOW UP FOR 4 WKS. F/U May AT 1130. AMBULATED TO BATHROOM WIHT WALKER AND O2 AT 3L PER NC AND ASSIST.
[2020-05-06 10:00] VITALS: BP 101/68; PULSE 70
--- NOTE | 2020-05-06 10:00 | NUR ---
RECEIVED DISCHARGE INSTRUCTIONS AND VERBALIZED UNDERSTANDING. PATIENT CALLED SON FOR INTERVENTIONAL CARDIOLOGIST.
--- NOTE | 2020-05-06 10:20 | NUR ---
DISHCARGED PER WC BY NURSING STAFF TO PRIVATE CAR IN CARE OF SON LES.
== END 2020-05-06 10:36 | disposition home or self-care (01) ==
LOC: SDCO 07:03
DX: J90 Pleural effusion, not elsewhere classified (principal); J96.91 Respiratory failure, unspecified with hypoxia; I27.20 Pulmonary hypertension, unspecified; E87.1 Hypo-osmolality and hyponatremia; Z79.82 Long term (current) use of aspirin; J44.9 Chronic obstructive pulmonary disease, unspecified; Z87.891 Personal history of nicotine dependence
CPT/HCPCS: 19804

== ENCOUNTER 2020-05-21 11:00 | Inpatient (IN) | payer MEDICARE, BC ==
[~2020-05-21] VITALS: Ht 177.8 cm; Wt 89.7 kg
[~2020-05-21 11:00] MED LIST changes: +PERFOROMIS20 MCG/2 M IH
[2020-05-21 11:34] LABS: BASO # 0.1 (0.0-0.2); BASO % 0.8 % (0.0-2.0); EOS # 0.5 (0.0-0.7); EOS % 8.7 % (0-4.0); GRAN # 4.5 (1.4-6.5); GRAN % 72.4 % (42.2-75.2); LYMPH # 0.3 (1.2-3.4); MEAN CELL VOLUME 96 fl (80.0-100.0); MEAN CORPUSCULAR HGB CONC 33 g/dl (33.0-37.0); MEAN PLATELET VOLUME 9.4 fl (7.4-10.4); MONO # 0.7 (0.1-0.6); MONO % 11.8 % (1.7-9.3); PLATELET COUNT 272 K/mm3 (130-400); RED BLOOD COUNT 2.91 M/mm3 (4.20-5.60); REDCELL DISTRIBUTION WIDTH-CV 13.3 % (11.5-14.5)
[2020-05-21 11:40] LABS: HEMOGLOBIN 9.2 g/dl (13.5-18.0); MEAN CORPUSCULAR HEMOGLOBIN 32 pg (27.0-31.0)
[2020-05-21 11:43] LABS: ALANINE AMINOTRANSFERASE 13 U/L (4-49); ALBUMIN 3.8 gm/dL (3.5-5.0); ALKALINE PHOSPHATASE 62 U/L (50-136); ANION GAP 6 mmol/L (7-16); AST,SGOT 28 U/L (15-37); BILIRUBIN,TOTAL 0.4 mg/dL (0.0-1.0); BLOOD UREA NITROGEN 18 mg/dL (9-20); CALCIUM 9.5 mg/dL (8.4-10.2); CARBON DIOXIDE 33 mmol/L (22-30); GLUCOSE 92 mg/dL (74-106); POTASSIUM 4.5 mmol/L (3.4-5.0); SODIUM 122 mmol/L (137-145); TOTAL PROTEIN 7.1 gm/dL (6.4-8.2)
[2020-05-21 11:45] LABS: CHLORIDE 82 mmol/L (98-107); INR 1.1 (0.8-3.0); PROTHROMBIN TIME 12.5 SECONDS (9.7-12.8)
[2020-05-21 11:57] LABS: TROPONIN-I < 0.012 ng/mL (0.000-0.035)
[2020-05-21 12:24] LABS: COLLECTION METHOD CLEAN CATCH
[2020-05-21 12:30] LABS: MUCOUS Present /lpf; PH 7 (5-8); SQUAMOUS EPITHELIAL 0-2 /hpf; URINE APPEARANCE Clear; URINE BACTERIA None Seen /hpf; URINE BILIRUBIN Negative (NEGATIVE); URINE BLOOD Negative (NEGATIVE); URINE COLOR Straw; URINE GLUCOSE Negative (NEGATIVE); URINE KETONE Negative (NEGATIVE); URINE LEUKOCYTE ESTERASE Negative (NEGATIVE); URINE NITRATE Negative (NEGATIVE); URINE PROTEIN(semi-quant) Negative (NEGATIVE); URINE RBC 0-2 /hpf; URINE UROBILINOGEN Negative (NEGATIVE)
[2020-05-21 14:28] VITALS: BP 131/79; PULSE 61; TEMP 97.4
[2020-05-21 15:48] VITALS: BP 130/75; PULSE 64; TEMP 97.5
--- NOTE | 2020-05-21 16:00 | NUR ---
Pt into room 356, he is A/O x4. His breathing is tachy and patient SOB with ambulation, currently on 5L O2 via NC. No pain at this time. POC discussed with patient, who will have a thoracentesis tomorrow and discussed water restriction with patient. Gatorade ordered. IVF started to LFA. Fall precautions in place. He has no other needs at this time. Call light within reach.
[2020-05-21 19:54] VITALS: BP 125/82; PULSE 66; TEMP 97.4
[2020-05-21 22:51] LABS: CALCIUM 8.6 mg/dL (8.4-10.2); CREATININE, serum 0.82 (0.66-1.25); POTASSIUM 4.2 mmol/L (3.4-5.0)
[2020-05-21 23:14] VITALS: BP 126/76; PULSE 68; TEMP 97.3
--- NOTE | 2020-05-21 23:14 | NUR ---
EBENEZER PINO, NOTIFIED OF CRITICAL LABS, POTASSIUM AND CHLORIDE.
[2020-05-22 04:00] VITALS: BP 103/68; PULSE 59; TEMP 97.1
--- NOTE | 2020-05-22 06:45 | NUR ---
awake resting in bed, bedside shift report received from JUNAID Kelley
[2020-05-22 07:03] LABS: BASO % 0.8 % (0.0-2.0); EOS # 0.5 (0.0-0.7); EOS % 9.7 % (0-4.0); GRAN # 3.4 (1.4-6.5); LYMPH # 0.3 (1.2-3.4); LYMPH % 6.8 % (20.0-51.0); MEAN CELL VOLUME 96 fl (80.0-100.0); MEAN CORPUSCULAR HGB CONC 33 g/dl (33.0-37.0); MEAN PLATELET VOLUME 9.7 fl (7.4-10.4); MONO # 0.6 (0.1-0.6); MONO % 12.5 % (1.7-9.3); PLATELET COUNT 231 K/mm3 (130-400); RED BLOOD COUNT 2.48 M/mm3 (4.20-5.60); REDCELL DISTRIBUTION WIDTH-CV 13.4 % (11.5-14.5)
[2020-05-22 07:10] LABS: HEMATOCRIT 23.7 % (42.0-52.0); HEMOGLOBIN 7.9 g/dl (13.5-18.0); MEAN CORPUSCULAR HEMOGLOBIN 32 pg (27.0-31.0)
[2020-05-22 07:32] LABS: CALCIUM 8.8 mg/dL (8.4-10.2); CREATININE, serum 0.91 (0.66-1.25); POTASSIUM 4.3 mmol/L (3.4-5.0)
[2020-05-22 07:53] VITALS: BP 106/70; PULSE 60; TEMP 97.5
--- NOTE | 2020-05-22 08:35 | NUR ---
Dr Ha in to see patient, sat up on side of bed for breakfast
--- NOTE | 2020-05-22 09:14 | NUR ---
Initial visit; Patient thanked House Detective wishing him well and offering God's blessings.
--- NOTE | 2020-05-22 09:30 | NUR ---
Sylvia PA in to see patient, full assessment completed, see interventions for further info, denies needs at this time
--- NOTE | 2020-05-22 10:17 | NUR ---
to endoscopy per bed for thoracentesis
--- NOTE | 2020-05-22 10:52 | NUR ---
Met with patient at bedside. He speaks in full sentences but his speech is slow and thoughtful. He reports that he gets "dry" about every 3 hours at night and has to drink water then. His son makes him "homemade gatorade". He reports a very poor appetite as he always feels full and nothing tastes too good. He does drink a chocolate boost-like drink everyday. He reports that his sodium level is usually in the 130's but is concerned it is down to the 120's. 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 Neither son was present for this initial visit.
--- NOTE | 2020-05-22 11:20 | NUR ---
returned to room per bed from endoscopy, denies pain or shortness of breath, taking gatorade and tolerates well, resp regular and even
[2020-05-22 11:25] VITALS: BP 102/61; PULSE 67; TEMP 97.4
[2020-05-22 11:30] VITALS: BP 102/61; PULSE 67; TEMP 97.4
--- NOTE | 2020-05-22 11:54 | NUR ---
assisted up to bathroom to try and have bowel movement, was unsuccessful, has dyspnea with exertion, O2 sats 88% when returned to bed and gradually went up to low 90s
--- NOTE | 2020-05-22 13:44 | NUR ---
unable to have bowel movement and given dulcolax suppository
--- NOTE | 2020-05-22 14:20 | NUR ---
assisted up to bathroom to try and have bowel movement
--- NOTE | 2020-05-22 14:21 | NUR ---
DONNIE met with the patient to discuss discharge plan. The patient lives in [place] with his son, Igor (ph#[phone]). He reports independence with ADLs and has a walker, home oxygen, and trilogy from [facility]. He receives home health services from [facility]. DONNIE contacted and faxed updates to Priya at [facility]. The patient's PCP is Dr. Chava Villarreal and he receives his medications from [facility] [place]. He reports no difficulties obtaining his meds. The patient does not have a DPOA-HC in EMR, but he states that he does have one completed and that it designates his son, Igor. DONNIE contact Johana at Dr. Villarreal's office. Johana reports that they do have a DPOA-HC on file for the patient and will fax it to the medical unit. The patient plans to return home with his son and resume home health services from [facility] upon discharge. DONNIE contacted and reviewed the above information with the patient's son, Igor. Igor is agreeable to the above plan and has no concerns with the patient returning back home with him upon discharge. DONNIE to continue to follow.
[2020-05-22 14:28] LABS: HEMATOCRIT 25.8 % (42.0-52.0); HEMOGLOBIN 8.7 g/dl (13.5-18.0)
[2020-05-22 15:36] LABS: CALCIUM 9.2 mg/dL (8.4-10.2); CREATININE, serum 0.92 (0.66-1.25); POTASSIUM 4.4 mmol/L (3.4-5.0)
--- NOTE | 2020-05-22 16:10 | NUR ---
was up to bathroom and had very small bowel movement, was given prune and apple juice to possibly help, entered room now and given tums 500mg and he had emesis of prune and apple juice
--- NOTE | 2020-05-22 17:06 | NUR ---
spoke with Dr Woody and order for fleets enema if patient desires, patient request this, administered and then assisted up to bathroom
[2020-05-22 17:23] VITALS: BP 132/82; PULSE 55; TEMP 97.8
--- NOTE | 2020-05-22 17:34 | NUR ---
after returning to bef O2 sats remain in the high 80s, O2 up to 6L
--- NOTE | 2020-05-22 19:01 | NUR ---
bedside shift report given to JUNAID Henriquez
[2020-05-22 20:51] VITALS: BP 102/65; PULSE 81; TEMP 97.8
--- NOTE | 2020-05-22 21:10 | NUR ---
Patient assessed at this time. Alert and oriented x 4, and able to make needs known. Denies having pain and discomfort at this time. Peripheral INT sites to left forearm and right hand. Reports SOB and dyspnea at rest. on oxygen at 5 L/min via NC. LS CTA in upper lobes, diminished in lower. Respirations labored, shallow. HRR. Telemetry in place. Capillary refill less than 3 seconds. Non-tenting skin turgor. BSAx4. Abdomen soft and non-tender. Voices no questions, needs, or concerns at this time. Not ready for melatonin or apap at this time. Refused to take colace and miralax. Resting in bed with call light wihtin reach.
--- NOTE | 2020-05-22 23:44 | NUR ---
Patient given Melatonin, APAP, and Clonazepam at this time as requested. Called RT to set up Trilogy as requested.
[2020-05-23] VITALS (22 sets, daily range): BP systolic 53–125; BP diastolic 28–84; PULSE 66–82; TEMP 97.2–97.9
[2020-05-23 01:07] LABS: ARTERIAL BLD GAS O2 SATURATION 95.5 % (92-100); ARTERIAL BLD GAS TCO2 CT 29.2; ARTERIAL BLOOD GAS BASE EXCESS 2.2 (-2-2); ARTERIAL BLOOD GAS HCO3 27.8 meq/L (22-26); ARTERIAL BLOOD GAS PCO2 47.9 mmHg (35-45); ARTERIAL BLOOD GAS PO2 83.7 mmHg (80-100); ARTERIAL BLOOD GAS pH 7.38 (7.35-7.45)
[2020-05-23 01:09] LABS: BASO # 0.1 (0.0-0.2); BASO % 0.6 % (0.0-2.0); EOS # 0.4 (0.0-0.7); EOS % 4.3 % (0-4.0); GRAN # 6.9 (1.4-6.5); GRAN % 82.2 % (42.2-75.2); LYMPH # 0.2 (1.2-3.4); LYMPH % 2.5 % (20.0-51.0); MEAN CELL VOLUME 94 fl (80.0-100.0); MEAN CORPUSCULAR HGB CONC 34 g/dl (33.0-37.0); MEAN PLATELET VOLUME 9.3 fl (7.4-10.4); MONO # 0.8 (0.1-0.6); MONO % 9.6 % (1.7-9.3); PLATELET COUNT 253 K/mm3 (130-400); RED BLOOD COUNT 2.44 M/mm3 (4.20-5.60); REDCELL DISTRIBUTION WIDTH-CV 13.3 % (11.5-14.5)
[2020-05-23 01:10] LABS: HEMOGLOBIN 7.8 g/dl (13.5-18.0); MEAN CORPUSCULAR HEMOGLOBIN 32 pg (27.0-31.0)
[2020-05-23 01:19] LABS: ANION GAP 4 mmol/L (7-16); BLOOD UREA NITROGEN 16 mg/dL (9-20); CALCIUM 8.7 mg/dL (8.4-10.2); CARBON DIOXIDE 31 mmol/L (22-30); CREATININE, serum 0.94 (0.66-1.25); GLUCOSE 138 mg/dL (74-106); POTASSIUM 4.2 mmol/L (3.4-5.0); SODIUM 121 mmol/L (137-145)
[2020-05-23 01:27] LABS: CHLORIDE 87 mmol/L (98-107)
[2020-05-23 01:31] LABS: TROPONIN-I < 0.012 ng/mL (0.000-0.035)
--- NOTE | 2020-05-23 05:38 | NUR ---
Patient's BP around 0020 was 53/28. This nurse checked manual BP with result of 62/48. Called LESLIE Terry. Stat orders for lab, chest x-ray, and ABG. Notified lab, radiology, and RT. SPO2 90% on triology. New order for 1 L bolus. RT took patient off trilogy and changed to oxygen at 6 L/min via NC. SPO2 95%. Patient's BP 80s/50s after first liter bolus. Order for 500 ml bolus. Given per orders. SPO2 at 0215 after 1500 bolus total was 100/60. Patient had been asymptomatic the entire time. Patient has been resting in bed with call light within reach. Voices no questions, needs, or concerns at this time.
[2020-05-23 06:43] LABS: BASO % 0.5 % (0.0-2.0); EOS # 0.4 (0.0-0.7); EOS % 5.5 % (0-4.0); GRAN # 6.1 (1.4-6.5); GRAN % 78.8 % (42.2-75.2); LYMPH # 0.3 (1.2-3.4); LYMPH % 3.5 % (20.0-51.0); MEAN CORPUSCULAR HGB CONC 32 g/dl (33.0-37.0); MEAN PLATELET VOLUME 9.5 fl (7.4-10.4); MONO # 0.8 (0.1-0.6); MONO % 10.3 % (1.7-9.3); PLATELET COUNT 247 K/mm3 (130-400); RED BLOOD COUNT 2.54 M/mm3 (4.20-5.60); REDCELL DISTRIBUTION WIDTH-CV 13.6 % (11.5-14.5)
[2020-05-23 06:48] LABS: CALCIUM 8.6 mg/dL (8.4-10.2); CREATININE, serum 0.87 (0.66-1.25); POTASSIUM 4.3 mmol/L (3.4-5.0)
[2020-05-23 06:57] LABS: HEMATOCRIT 25.1 % (42.0-52.0); HEMOGLOBIN 8.1 g/dl (13.5-18.0); MEAN CELL VOLUME 99 fl (80.0-100.0); MEAN CORPUSCULAR HEMOGLOBIN 32 pg (27.0-31.0)
--- NOTE | 2020-05-23 07:08 | NUR ---
PT LAYING IN BED AT THIS TIME. DENIES ANY NEEDS. STUDENT RN PEDRO WILL BE ASSISTING TODAY. NO FURTHER CONCERNS AT THIS TIME.
--- NOTE | 2020-05-23 10:16 | NUR ---
I met with patient again this morning to talk about goals of care. He is very comfortable taking the Keytruda and wishes to continue if that is possible. A pleurx drain has been discussed with him and yet currently there has not been enough fluid to safely allow placement. Per Dr Ha, this is not a malignant effusion as per pathology.
--- NOTE | 2020-05-23 11:27 | NUR ---
PT UP TO WALK WITH PHYSICAL THERAPY. PT IS VERY TIRED AND COMPLAINS OF WEAKNESS, WILL CONTINUE TO MONITOR. NO FURTHER CONCERNS.
[2020-05-23 13:24] LABS: CALCIUM 8.7 mg/dL (8.4-10.2); CREATININE, serum 1.04 (0.66-1.25)
--- NOTE | 2020-05-23 13:58 | NUR ---
Primary nurse was assisted with [phone] patient care by [employer] student Zachery Gallegos and [employer] instructor Carley Rodriguez RN-.
--- NOTE | 2020-05-23 18:23 | NUR ---
PT HAS HAD UNEVENTFUL DAY. PHYSICAL THERAPY DID GET THE PT UP AND MOVING TODAY. PT APPEARED TO BE FATIGUED, AND STATED THAT HE WAS TIRED. PT DID AMBULATE WELL A STANDBY ASSIST WITH WALKER AND GAIT BELT. PT HAD BMs THAT WERE VERY SMALL AND SOMEWHAT DUST LIKE. THE PATIENT HAD LITTLE TO NO APPETITE FOR LUNCH, HOWEVER WAS ABLE TO EAT WELL FOR BREAKFAST. SODIUM DID INCREASE FROM 122 TO 123 WITH JUST THE FLUIDS STARTING AT 50ML/HR. SALT TAB WAS GIVEN AT 1400, AND BMP WILL BE DRAWN IN THE AM. THERE ARE NO OTHER CONCERNS AT THIS TIME. PT REMAINS IN BED, AND DENIES MUCH PAIN OTHER THAN CRAMPING FROM HIS BOWEL MOVEMENTS. WILL ENDORSE TO ADVANCED QUALITY ENGINEER RN.
[2020-05-23 18:49] LABS: CALCIUM 8.5 mg/dL (8.4-10.2); CREATININE, serum 0.92 (0.66-1.25); POTASSIUM 4.6 mmol/L (3.4-5.0)
--- NOTE | 2020-05-23 19:25 | NUR ---
Patient assessed at this time. Alert and oriented x 4, and able to make needs known. Denies having pain and discomfort at this time. Peripheral INT to right had, IV to left forearm with fluids running per orders. Both sites without redness, warmth, swelling, and pain. Does have SOB and dyspnea with exertion, denies at rest. On oxygen at 6 L/min via NC. Respirations even and unlabored at rest. LS CTA. HRR. Telemetry in place. Capillary refill less than 3 seconds. Non-tenting skin turgor. BSAx4. Abdomen soft and non-tender. 1+ edema BLE. Voices no questions, needs, or concerns at this time. Resting in bed with call light within reach. High fall risk precautions remain in place.
--- NOTE | 2020-05-23 20:50 | NUR ---
Patient given PRN Tums as requested at this time.
[2020-05-24 02:01] LABS: CALCIUM 8.6 mg/dL (8.4-10.2); CREATININE, serum 1.01 (0.66-1.25); POTASSIUM 4.9 mmol/L (3.4-5.0)
[2020-05-24 03:02] VITALS: BP 113/73; PULSE 66; TEMP 97.5
--- NOTE | 2020-05-24 05:23 | NUR ---
Patient has been up most of the night. Has been up to the bathroom very frequently, as he had received IV Lasix. Did not want to use urinal, and when offered external catheter, patient decliend. Denies having pain and discomfort at this time. Has not been wearing trilogy much this shift, but has been on oxygen at 6 L/min via NC when not on trilogy. Fluids continue per orders. Voices no questions, needs, or concerns at this time. Resting in bed with call light within reach. High fall risk precautions remain in place.
--- NOTE | 2020-05-24 06:47 | NUR ---
PT LAYING IN BED AT THIS TIME. DENIES ANY NEEDS AT THIS TIME.
[2020-05-24 07:24] LABS: BASO % 0.6 % (0.0-2.0); EOS # 0.5 (0.0-0.7); GRAN # 5.5 (1.4-6.5); GRAN % 75.7 % (42.2-75.2); LYMPH # 0.4 (1.2-3.4); LYMPH % 5.1 % (20.0-51.0); MEAN CELL VOLUME 99 fl (80.0-100.0); MEAN CORPUSCULAR HGB CONC 33 g/dl (33.0-37.0); MEAN PLATELET VOLUME 9.9 fl (7.4-10.4); MONO # 0.8 (0.1-0.6); MONO % 10.6 % (1.7-9.3); PLATELET COUNT 292 K/mm3 (130-400); RED BLOOD COUNT 2.59 M/mm3 (4.20-5.60); REDCELL DISTRIBUTION WIDTH-CV 13.8 % (11.5-14.5)
[2020-05-24 07:30] LABS: HEMATOCRIT 25.5 % (42.0-52.0); HEMOGLOBIN 8.3 g/dl (13.5-18.0); MEAN CORPUSCULAR HEMOGLOBIN 32 pg (27.0-31.0)
[2020-05-24 07:42] LABS: CALCIUM 8.7 mg/dL (8.4-10.2); CREATININE, serum 0.92 (0.66-1.25); POTASSIUM 4.6 mmol/L (3.4-5.0)
[2020-05-24 08:18] VITALS: BP 120/60; PULSE 71; TEMP 97.6
[2020-05-24 12:29] LABS: CALCIUM 8.6 mg/dL (8.4-10.2); CREATININE, serum 0.87 (0.66-1.25); POTASSIUM 4.1 mmol/L (3.4-5.0)
[2020-05-24 12:53] VITALS: BP 122/79; PULSE 70; TEMP 97.6
--- NOTE | 2020-05-24 13:54 | NUR ---
Primary nurse was assisted with [phone] patient care by [employer] student Martina Collazo and [employer] instructor Carley Rodriguez RN-BC.
[2020-05-24 15:28] VITALS: BP 109/68; PULSE 69; TEMP 98.1
--- NOTE | 2020-05-24 16:04 | NUR ---
DONNIE staffed with the PA. The patient may be able to d/c over the weekend. DONNIE notified Priya at [facility].
[2020-05-24 18:18] LABS: CALCIUM 8.5 mg/dL (8.4-10.2); CREATININE, serum 0.82 (0.66-1.25); POTASSIUM 4.6 mmol/L (3.4-5.0)
[2020-05-24 19:16] VITALS: BP 131/77; PULSE 84; TEMP 98.1
--- NOTE | 2020-05-24 19:51 | NUR ---
THIS RT IN ROOM TO DO NEB BID THE PATIENT HAS A URINAL IN HIS LAP AND HAS A COMPLAINT OF NOT BEING ABLE TO VOID NURSE IN THE ROOM I TOLD THE PT TO CALL WHEN HE IS READY AND I WOULD GIVE HIM PRIVACY HE AGREED CONTINUE TO MONITOR PATIENT ON 6LPM NASAL OXYGEN
--- NOTE | 2020-05-24 20:37 | NUR ---
Patient laying in bed and resting upon enter the room. Patient alert and oriented. Patient denies any pain or discomfort. Justen SOB or dyspnea while at rest. Patient currently on 6L via NC. IVF running at 60ml/hr via left forearm IV site. All scheduled meds given per MAY. Call light within reach. Patient denies any needs at this time
[2020-05-24 23:16] VITALS: BP 127/77; PULSE 71; TEMP 97.3
[2020-05-25 02:10] LABS: CALCIUM 8.4 mg/dL (8.4-10.2); CREATININE, serum 0.89 (0.66-1.25); POTASSIUM 4.4 mmol/L (3.4-5.0)
[2020-05-25 04:18] VITALS: BP 117/71; PULSE 67; TEMP 97.9
[2020-05-25 05:10] LABS: COLLECTION METHOD IN
--- NOTE | 2020-05-25 05:14 | NUR ---
Patient had lots of urinary urgency this morning with only small amount of urine output each time. Bladder scan performed and it shows 1430ml of urine in the bladder. Called ALVARE[facility] Strong and order received to insert pacheco catheter and collect UA. 16 fr pacheco inserted via sterile technique at 04: 45 am and visualized 1450ml urine output immediately. UA collected and sent to lab at 0500 am. Call light within reach. Patient denies any needs at this time.
[2020-05-25 05:15] LABS: MUCOUS Present /lpf; PH 6 (5-8); SQUAMOUS EPITHELIAL None Seen /hpf; URINE APPEARANCE Clear; URINE BACTERIA None Seen /hpf; URINE BILIRUBIN Negative (NEGATIVE); URINE BLOOD 1+ (NEGATIVE); URINE COLOR Yellow; URINE GLUCOSE Negative (NEGATIVE); URINE KETONE Negative (NEGATIVE); URINE LEUKOCYTE ESTERASE Negative (NEGATIVE); URINE NITRATE Negative (NEGATIVE); URINE PROTEIN(semi-quant) Negative (NEGATIVE); URINE UROBILINOGEN Negative (NEGATIVE)
--- NOTE | 2020-05-25 07:00 | NUR ---
Report received from Chandu Ramírez. Pt in bed resting with eyes closed, will continue to monitor.
[2020-05-25 07:38] VITALS: BP 118/74; PULSE 73; TEMP 97.7
--- NOTE | 2020-05-25 09:03 | NUR ---
Assessment charted. Pt up with PTi n room, able to ambulate with walker and SBA. Resting in chair eating breakfast. 02 at 5L NC. Tried sitting on commode again this am, bowel meds given and will try PRN bowel meds shortly if no results. Pain to low back from bed, sitting in chair now eating breakfast. Will continue to monitor.
--- NOTE | 2020-05-25 11:22 | NUR ---
Pt unable to have a bowel movement and has been on commode several times laready today. Restng in bed again, refusing flomax at this point until talk to doctor Lagunas.
[2020-05-25 11:41] VITALS: BP 107/71; PULSE 69; TEMP 97.4
[2020-05-25 14:15] LABS: CALCIUM 8.5 mg/dL (8.4-10.2); CREATININE, serum 0.84 (0.66-1.25); POTASSIUM 4.3 mmol/L (3.4-5.0)
[2020-05-25 17:24] VITALS: BP 126/78; PULSE 82; TEMP 98.3
--- NOTE | 2020-05-25 18:07 | NUR ---
Pt unable to void after multiple attempts this afternoon once pacheco dc'd, bladder scan revealed 900 mls. Pt straight catheterized and 1250 mls clear yellow urine emptied from bladder. Pt tolerated well, sterile technique used. Pt resting in bed, supper ordered, will give bedside shift report to nightshift nurse who will resume care.
--- NOTE | 2020-05-25 18:37 | NUR ---
EKG DONE. STATES CRITICAL TEST RESULT. CONTACTED LEIF QUIROGA WHO CALLED EBENEZER PINO
--- NOTE | 2020-05-25 18:56 | NUR ---
Bedside report received from JUNAID Castro. Patient is having dinner in bed. Denies any needs at this time. Call light within reach.
[2020-05-25 19:32] VITALS: BP 110/72; PULSE 82; TEMP 97.7
[2020-05-25 19:49] LABS: CALCIUM 8.4 mg/dL (8.4-10.2); CREATININE, serum 0.73 (0.66-1.25); POTASSIUM 5.1 mmol/L (3.4-5.0)
[2020-05-25 23:06] VITALS: BP 99/69; PULSE 80; TEMP 98.1
--- NOTE | 2020-05-26 | NUR ---
Shift assessment completed and charted. Patient currently on 4.5L O2 via NC. Patient denies SOB or dyspnea while at rest. Patient denies chest pain, palpitations, N/V, headache, or dizziness. Received new order to give Magneseum for irregular heart rhythm. Mg 1G IV given per MAY. All scheduled meds given per MAY. Patient voided x1 around 2100 pm with 50ml output. Bladder scan performed around 2300 and shows >400ml. Straight cath done via sterile technique with 500ml urine output. Patient tolerated procedure well. Call light within reach. Patient denies any needs.
[2020-05-26 01:36] LABS: CALCIUM 8.4 mg/dL (8.4-10.2); CREATININE, serum 0.86 (0.66-1.25); POTASSIUM 4.5 mmol/L (3.4-5.0)
[2020-05-26 03:17] VITALS: BP 109/71; PULSE 77; TEMP 97.9
--- NOTE | 2020-05-26 04:41 | NUR ---
Patient went to bathroom and had large BM x2 with minimal urine output around 4am. Bladder scan done and it shows > 600ml. Straig cath performed via sterile technique and had 850ml urine output at 04:30 am. Patient tolerated procedure well. Call light within reach. Will continue to monitor.
--- NOTE | 2020-05-26 07:00 | NUR ---
Report received from JUNAID Ramírez. pT in bed resting, wants to try and sleep some now since he was not able to sleep much last night. Will give until 845 to rest. Will continue to monitor.
[2020-05-26 09:21] LABS: BASO % 0.4 % (0.0-2.0); EOS # 0.6 (0.0-0.7); EOS % 11.8 % (0-4.0); GRAN # 3.3 (1.4-6.5); GRAN % 70.4 % (42.2-75.2); LYMPH # 0.3 (1.2-3.4); LYMPH % 5.6 % (20.0-51.0); MEAN CELL VOLUME 98 fl (80.0-100.0); MEAN CORPUSCULAR HGB CONC 33 g/dl (33.0-37.0); MEAN PLATELET VOLUME 9.5 fl (7.4-10.4); MONO # 0.5 (0.1-0.6); MONO % 11.2 % (1.7-9.3); PLATELET COUNT 234 K/mm3 (130-400); RED BLOOD COUNT 2.44 M/mm3 (4.20-5.60); REDCELL DISTRIBUTION WIDTH-CV 14.1 % (11.5-14.5)
[2020-05-26 09:24] VITALS: BP 133/81; PULSE 80; TEMP 97.4
[2020-05-26 09:26] LABS: HEMOGLOBIN 7.9 g/dl (13.5-18.0); MEAN CORPUSCULAR HEMOGLOBIN 32 pg (27.0-31.0)
[2020-05-26 09:35] LABS: CALCIUM 8.1 mg/dL (8.4-10.2); CREATININE, serum 0.76 (0.66-1.25); POTASSIUM 4.2 mmol/L (3.4-5.0)
--- NOTE | 2020-05-26 10:31 | NUR ---
Assessment charted. Pt in bed resting, feeling short of breath today, reflux is also an issue, PRN maalox and tums given. Pt had several BMs last night and does not want to have miralax today. disucsed bladder needs and plan to straight cath if holding more than 350 mls in urine. Pt agreeable. IVF to LFA. will continue to monitor.
[2020-05-26 12:56] VITALS: BP 95/62; PULSE 70; TEMP 98.2
[2020-05-26 15:05] LABS: CALCIUM 8.1 mg/dL (8.4-10.2); CREATININE, serum 0.9 (0.66-1.25); POTASSIUM 4.2 mmol/L (3.4-5.0)
--- NOTE | 2020-05-26 15:20 | NUR ---
Pt bladder scanned after false attempts to void, showed greater than 1000, straight catheterization using sterile technique. Pt tolerated well, 1050 clear yellow urine drained from bladder. Pt resting in bed, states he could tell his bladder was full but unable to void. Will continue to monitor.
[2020-05-26 15:46] VITALS: BP 88/54; PULSE 75; TEMP 97.9
[2020-05-26 17:30] VITALS: BP 99/60; PULSE 70
--- NOTE | 2020-05-26 18:02 | NUR ---
Bladder scan this evening revealed 320 mls of urine in bladder, will not straight cath at this time as pt is not uncomfortable. Resting in bed ordered supper. PRN tylenol given for headache this evening and reflux medication given twice over shift. Will give bedside shift report to nightshift nurse who will resume care.
--- NOTE | 2020-05-26 20:00 | NUR ---
Assessment complete. Patient is alert and oriented with no complaints of pain. He wears 6 liters oxygen and is tolerating this fine. Bladder scan is performed by POLICY SERVICES REPRESENTATIVE and it results that patient is not retaining any urine. Neuro checks are consistent with previous results. No new concerns, call light in reach.
[2020-05-26 20:26] VITALS: BP 96/66; PULSE 82; TEMP 98.1
[2020-05-26 21:05] LABS: CALCIUM 8.1 mg/dL (8.4-10.2); CREATININE, serum 1.13 (0.66-1.25); POTASSIUM 4.3 mmol/L (3.4-5.0)
[2020-05-27] VITALS (9 sets, daily range): BP systolic 78–157; BP diastolic 48–75; PULSE 61–81; TEMP 97.5–98.3
[2020-05-27 01:32] LABS: CREATININE, serum 0.95 (0.66-1.25); POTASSIUM 4.4 mmol/L (3.4-5.0)
[2020-05-27 06:48] LABS: BASO % 0.5 % (0.0-2.0); EOS # 0.5 (0.0-0.7); EOS % 12.4 % (0-4.0); GRAN # 2.6 (1.4-6.5); GRAN % 66.1 % (42.2-75.2); LYMPH # 0.3 (1.2-3.4); LYMPH % 8.6 % (20.0-51.0); MEAN CELL VOLUME 100 fl (80.0-100.0); MEAN CORPUSCULAR HGB CONC 32 g/dl (33.0-37.0); MEAN PLATELET VOLUME 9.6 fl (7.4-10.4); MONO # 0.5 (0.1-0.6); MONO % 11.4 % (1.7-9.3); PLATELET COUNT 229 K/mm3 (130-400); RED BLOOD COUNT 2.38 M/mm3 (4.20-5.60); REDCELL DISTRIBUTION WIDTH-CV 13.9 % (11.5-14.5)
[2020-05-27 07:14] LABS: HEMATOCRIT 23.7 % (42.0-52.0); HEMOGLOBIN 7.5 g/dl (13.5-18.0); MEAN CORPUSCULAR HEMOGLOBIN 32 pg (27.0-31.0)
[2020-05-27 07:38] LABS: CALCIUM 8.2 mg/dL (8.4-10.2); CREATININE, serum 0.8 (0.66-1.25); POTASSIUM 4.5 mmol/L (3.4-5.0)
--- NOTE | 2020-05-27 09:45 | NUR ---
I met with patient around 0930 this morning. He reported that he was having a bad day. He had not slept well for the last few nights and when he did get to sleep, he was awakened for lab or vital signs. He is also very concerned about how he will manage at home during the day and may be interested in having some in home help while his son Igor is at work. He is so sleepiy that he is falling asleep mid sentence. Advised his nurse, Rose Mary and placed a sign at door to keep people from waking him up if not needed.
--- NOTE | 2020-05-27 11:18 | NUR ---
THIS NURSE CALLED AND NOTIFIED THAT THE PATIENT IS REPORTING CHEST PAIN. RT IN ROOM OBTAINING AN EKG. THIS NURSE SPOKE WITH HOSPITALIST ALVAREZ BUSTOS. PHYSICIANS AWARE.
--- NOTE | 2020-05-27 11:32 | NUR ---
INVENTORY ASSISTANT NOTIFIED THIS NURSE THAT THE PATIENT IS REPORTING THAT HE'S UNABLE TO KEEP HIS O2 SATS UP. 02 TURNED UP TO 6L FROM 4L AND IS SATING AT 93-96% ON 6L. WILL CONTINUE TO MONITOR.
--- NOTE | 2020-05-27 11:53 | NUR ---
SW attended clinical rounds. The patient is to have a CAT scan today. Urology was consulted. SW to continue to follow.
--- NOTE | 2020-05-27 12:16 | NUR ---
PATIENT REPORTS THAT AFTER THE NITRO HIS CHEST PAIN IS IMPROVING. PATIENT WAS INITIALLY REPORTING NUMBNESS AND TINGLING IN HIS FINGERS. PATIENT STATES THAT THE NUMBNESS AND TINGLING IS NOW RESOLVED. IV FLUIDS BOLUS INITIATED. SQ LOVENOX GIVEN. PATIENT PLACED ON 9L 02 VIA OXYMASK, O2 SAT AT 94%.
--- NOTE | 2020-05-27 13:01 | NUR ---
PATIENT CONTINUES TO REPORT CHEST PAIN IN THE RIGHT SIDE OF THE CHEST. BLOOD PRESSURES IMPROVED AFTER IV FLUID BOLUS. BLOOD PRESSURE IS NOW 97/57, O2 SAT AT 98% ON 5L OXYMASK. WILL CONTINUE MONITORING.
--- NOTE | 2020-05-27 13:06 | NUR ---
ALVAREZ BUSTOS CALLED AND NOTIFIED THAT THE PATIENTS BLOOD PRESSURE HAS IMPROVED, BUT CONTINUES TO REPORT CHEST PAIN. HOSPITALIST ORDERING A REPEAT EKG. RT CALLED AND NOTIFIED.
--- NOTE | 2020-05-27 13:57 | NUR ---
PATIENT GIVEN IV MORPHINE FOR CHEST PAIN. PATIENT TAKEN DOWNSTAIRS FOR IMAGING. WILL WAIT FOR PATIENT ARRIVAL BACK TO ROOM 356.
--- NOTE | 2020-05-27 14:25 | NUR ---
PATIENT ARRIVED BACK TO ROOM 356 VIA BED FROM IMAGING. PATIENT GIVEN TUMS FOR HEARTBURN. PATIENT CONTINUES TO REPORT PAIN. LAB IN ROOM FOR AFTERNOON TROPONIN DRAW.
--- NOTE | 2020-05-27 15:26 | NUR ---
UROLOGY CONSULT CALLED TO FOR URINARY RETENTION. PHYSICIAN WILL BE BY EITHER LATER TODAY OR TOMORROW MORNING. NO ORDERS GIVEN AT THIS TIME.
--- NOTE | 2020-05-27 16:18 | NUR ---
ALVAREZ BUSTOS CALLED AND NOTIFIED THAT THE PATIENT HAD IMMEDIATE URINE RETURN OF 1425 MLS POST ALFARO INSERTION, AND CONTINUES TO HAVE URINE FLOWING INTO CATHETER BAG. PATIENT CONTINUES TO REPORT CHEST PAIN.
--- NOTE | 2020-05-27 17:19 | NUR ---
RT NOTIFIED THIS NURSE THAT THE PATIENTS REPEAT EKG STATED ACUTE IN. DR. CAZARES CALLED AND NOTIFIED. PHYSICIAN TO COME SEE PATIENT. ALVAREZ BUSTOS ALSO NOTIFIED.
--- NOTE | 2020-05-27 17:25 | NUR ---
EKG DONE. STATES ACUTE WA. NOTIFIED TAYLOR QUIROGA WHO CONTACTED DR ESCOBAR
--- NOTE | 2020-05-27 19:00 | NUR ---
PATIENT RESTING IN BED. REPORT GIVEN TO NIGHT NURSE.
[2020-05-27 19:05] LABS: CALCIUM 8.5 mg/dL (8.4-10.2); CREATININE, serum 0.81 (0.66-1.25); POTASSIUM 4.4 mmol/L (3.4-5.0)
--- NOTE | 2020-05-27 19:30 | NUR ---
Received report from Rose Mary. Patient awake in bed. With pacheco catheter draining clear, yellow urine. He is on O2 at 6.5L via NC. He has a finger pulse oximeter on his left hand. He reports pain on his right side chest to be at 2/10.
--- NOTE | 2020-05-27 21:30 | NUR ---
Repositioned patient in bed. Placed briefs on and changed his underpads. He do have dyspnea at rest. It would take him few seconds to respond sometimes as he was trying to do deep breathing. He was at 93% on O2 at 6.5L.
--- NOTE | 2020-05-27 22:48 | NUR ---
Patient complains of right side chest pain, with pain score of 3-4/10. PAtient just had Tylenol 500mg at 2000H. Morphine given instead. Called RT to help patient set up with his Trilogy. He wants to have a new mask for his Trilogy but RT said that we don't have that available here. Instructed patient that if he's ready for bed to just put the mask on and turn on his Trilogy or to call us if he needs more help. Patient verbalizes understanding.
--- NOTE | 2020-05-27 23:55 | NUR ---
PT STATES "MASK IS NOT WORKING RIGHT WITH TRILOGY" PT STATES THAT HIS SATURATIONS ON HIS PULSE OX IS NOT HIGH WHEN ON HIS TRILOGY IT IS WHEN HE IS ON HIS NASAL CANNULA. THEREFORE DISCUSSED OPTIONS WITH PATIENT AND HE AGREED TO SLEEP WITH HIS NASAL CANNULA ON TONIGHT. NO DISTRESS NOTED AT THIS TIME AND PT WAS RESTING COMFORTABLY.
[2020-05-28] VITALS (7 sets, daily range): BP systolic 90–128; BP diastolic 55–87; PULSE 67–73; TEMP 97.5–98.3
--- NOTE | 2020-05-28 06:30 | NUR ---
Patient still reports intermittent pain on his right side chest, more on the ribs side. This morning he reports pain of 3-4/10. Morphine given.
[2020-05-28 07:18] LABS: BASO % 0.3 % (0.0-2.0); EOS # 0.5 (0.0-0.7); EOS % 8.8 % (0-4.0); GRAN # 4.4 (1.4-6.5); GRAN % 72.8 % (42.2-75.2); LYMPH # 0.4 (1.2-3.4); MEAN CELL VOLUME 98 fl (80.0-100.0); MEAN CORPUSCULAR HGB CONC 33 g/dl (33.0-37.0); MEAN PLATELET VOLUME 9.8 fl (7.4-10.4); MONO # 0.7 (0.1-0.6); MONO % 11.6 % (1.7-9.3); PLATELET COUNT 238 K/mm3 (130-400); RED BLOOD COUNT 2.51 M/mm3 (4.20-5.60); REDCELL DISTRIBUTION WIDTH-CV 13.9 % (11.5-14.5)
[2020-05-28 07:26] LABS: HEMATOCRIT 24.6 % (42.0-52.0); HEMOGLOBIN 8.1 g/dl (13.5-18.0); MEAN CORPUSCULAR HEMOGLOBIN 32 pg (27.0-31.0)
[2020-05-28 07:29] LABS: CALCIUM 8.4 mg/dL (8.4-10.2); CREATININE, serum 0.67 (0.66-1.25); POTASSIUM 4.7 mmol/L (3.4-5.0)
--- NOTE | 2020-05-28 07:33 | NUR ---
Lying in bed with eyes open. Alert and oriented x4. Rates pain to right lower ribs 1/10, says the pain medication helped. Lung sounds with expiratory wheezes, diminished in bases. Oxygen at 6.5L/NC. Fontaine to dependent drainage with clear yellow urine in bag. Will order breakfast at this time. Denies additional needs.
--- NOTE | 2020-05-28 09:23 | NUR ---
Patient says that he feels short of air. Has personal pulse oximeter on finger and he says that it has gone into the upper 80's at times. Check SpO2 with hospital equipment and reads 94%. Attempt to reassure patient. RT contacted and they will also assess patient.
--- NOTE | 2020-05-28 10:35 | NUR ---
Lying in bed with eyes open. Dr. Cope was in and seen patient. Administer initial dose of Lasix as prescribed and educate patient on the medication. Denies pain at this time or any further needs.
--- NOTE | 2020-05-28 12:27 | NUR ---
Lying in bed with eyes open watching TV. Both IV sites are due to be changed, discuss process with the patient. 20 gauge IV started in the right forearm on second attempt. Blood return, flushes without difficulty. Site reinforced with tegaderm and tape. INT to left forearm and right hand dc'd with all intact. Both sites applied 2x2's and reinforced with coban. Rates pain to right lower ribs 1/10. Discuss Florence that was ordered by the provider and that if his pain returns we will give the Florence first before the Morphine. Patient lunch has arrived. Patient repositioned in the bed and assisted with setting up tray. Denies additional needs at this time.
--- NOTE | 2020-05-28 12:46 | NUR ---
Receive call from US that they would like to come get patient to take him for the US guided thoracentesis. Explain that patient was eating lunch and ask if they could give him 30 minutes at the least per patient request. US returns call and says the only time the radiologist has is right now so they will come to get the patient at this time. Patient informed. Explain that if he wants his lunch when he gets back we can reheat it or if he wanted something differed we could order him something else. Patient verbalizes understanding.
--- NOTE | 2020-05-28 12:55 | NUR ---
Patient to US via wheel chair at this time.
--- NOTE | 2020-05-28 14:11 | NUR ---
Patient back to room from US via wheel chair. Does not want to eat at this time. Denies any additional needs at this time.
--- NOTE | 2020-05-28 17:39 | NUR ---
Lying in bed watching TV. Channel guide provided per patient request. Pain is good at this time. Breathing okay. Oxygen at 6.5L/NC. Denies additional needs at this time.
--- NOTE | 2020-05-28 19:00 | NUR ---
Received report from Rianna. Patient awake in bed. He is on O2 at 6lpm via nasal cannula. He denies pain at this time.
[2020-05-29 04:46] VITALS: BP 124/79; PULSE 69; TEMP 97.6
--- NOTE | 2020-05-29 05:59 | NUR ---
Patient denies pain the whole shift. He states the Thoracentesis done yesterday helped a lot. Thora site on left side is clean, dry and intact. On O2 at 6lpm via NC.
--- NOTE | 2020-05-29 07:15 | NUR ---
Report with JUNAID Feng. Pt sitting up in bed, awake and alert, preparing to order breakfast, denies needs at this time. Call light in reach.
[2020-05-29 07:34] LABS: BASO % 0.8 % (0.0-2.0); EOS # 0.6 (0.0-0.7); EOS % 11.8 % (0-4.0); GRAN # 3.2 (1.4-6.5); GRAN % 66.8 % (42.2-75.2); LYMPH # 0.4 (1.2-3.4); LYMPH % 7.4 % (20.0-51.0); MEAN CELL VOLUME 97 fl (80.0-100.0); MEAN CORPUSCULAR HGB CONC 33 g/dl (33.0-37.0); MEAN PLATELET VOLUME 9.6 fl (7.4-10.4); MONO # 0.6 (0.1-0.6); MONO % 12.6 % (1.7-9.3); PLATELET COUNT 241 K/mm3 (130-400); RED BLOOD COUNT 2.37 M/mm3 (4.20-5.60); REDCELL DISTRIBUTION WIDTH-CV 13.9 % (11.5-14.5)
[2020-05-29 07:53] LABS: CALCIUM 8.4 mg/dL (8.4-10.2); CREATININE, serum 0.66 (0.66-1.25); POTASSIUM 4.4 mmol/L (3.4-5.0)
[2020-05-29 08:01] LABS: HEMATOCRIT 22.9 % (42.0-52.0); HEMOGLOBIN 7.6 g/dl (13.5-18.0); MEAN CORPUSCULAR HEMOGLOBIN 32 pg (27.0-31.0)
[2020-05-29 08:33] VITALS: BP 124/80; PULSE 70; TEMP 97.9
--- NOTE | 2020-05-29 11:40 | NUR ---
The patient's [id number], Jimmie # [phone] contacted this SW regarding the patient's care. Jimmie is concerned about the patient being at home alone during the day while his son, Igor is at work. DONNIE discussed private pay options for care during the day and provided information. Jimmie inquired about possible hospice for the patient. DONNIE collaborated the above information with the team. Rubber Stamp Maker attended clinical rounds with the team. Igor was on speaker phone. The patient is wanting to go to post acute rehab since he is weak. After rounds, DONNIE met with the patient to discuss Medicare.[employer] SNF facilites that serve the [place]. The choses were [facility], [facility], and [facility]. Referrals sent. The patient currently receives treatment from Dr. Shelby. DONNIE contacted Evelin with Dr. Shelby's office to inquire about the possibilty of putting treatment on hold until the patient completes treatment. Dr. Shelby is out of the office this day. Evelin to contact this DONNIE on 05/[address] Shelby's decision.
[2020-05-29 12:24] VITALS: BP 96/58; PULSE 70; TEMP 98.2
--- NOTE | 2020-05-29 14:50 | NUR ---
Anneliese from [facility] reports they have declined the patient for post acute rehab, they feel they cannot meet his needs at this time. If his condition gets better they would like updates to revisit the referral.
[2020-05-29 16:13] VITALS: BP 107/65; PULSE 73; TEMP 98.2
--- NOTE | 2020-05-29 18:57 | NUR ---
Report with JUNAID Feng. Pt sitting up in bed to eat dinner, reports "having trouble breathing." O2 sats 92-93% on pt's baseline 6 L/min O2. RT notified.
[2020-05-29 18:59] VITALS: BP 109/64; PULSE 79; TEMP 98.6
--- NOTE | 2020-05-29 19:00 | NUR ---
Received report from Madison. Patient on O2 at 6lpm via NC and he reports having trouble breathing. His SPO2 was at 93%. Madison RN called RT for breathing treatment. He denies pain.
[2020-05-29 22:49] VITALS: BP 110/63; PULSE 82; TEMP 98.3
[2020-05-30 04:21] VITALS: BP 94/62; PULSE 60; TEMP 98.3
--- NOTE | 2020-05-30 06:17 | NUR ---
Patient used his Trilogy overnight. He denies pain. Repositioned patient this morning.
[2020-05-30 06:54] LABS: BASO % 0.9 % (0.0-2.0); EOS # 0.6 (0.0-0.7); EOS % 12.9 % (0-4.0); GRAN # 2.8 (1.4-6.5); GRAN % 65.5 % (42.2-75.2); LYMPH # 0.3 (1.2-3.4); LYMPH % 7.3 % (20.0-51.0); MEAN CELL VOLUME 99 fl (80.0-100.0); MEAN CORPUSCULAR HGB CONC 33 g/dl (33.0-37.0); MEAN PLATELET VOLUME 9.4 fl (7.4-10.4); MONO # 0.5 (0.1-0.6); MONO % 12.2 % (1.7-9.3); PLATELET COUNT 237 K/mm3 (130-400); REDCELL DISTRIBUTION WIDTH-CV 13.9 % (11.5-14.5)
[2020-05-30 07:02] LABS: CALCIUM 8.2 mg/dL (8.4-10.2); CREATININE, serum 0.74 (0.66-1.25); POTASSIUM 4.3 mmol/L (3.4-5.0)
[2020-05-30 07:05] LABS: HEMATOCRIT 23.7 % (42.0-52.0); HEMOGLOBIN 7.7 g/dl (13.5-18.0); MEAN CORPUSCULAR HEMOGLOBIN 32 pg (27.0-31.0)
--- NOTE | 2020-05-30 09:39 | NUR ---
Pt doing okay, rather quiet. He is working on his ivWatch. States he does not have much of an appetite, but is doing better than yesterday. Pt denied any needs, call light within reach, will continue to monitor
[2020-05-30 09:44] VITALS: BP 113/70; PULSE 76; TEMP 97.9
--- NOTE | 2020-05-30 11:22 | NUR ---
DONNIE attempted to contact JUNAID Waters at Dr. Shelby's office. DONNIE left her a voicemail. Shobha, IPR Director, reports that they have declined the patient. DONNIE attempted to follow up with Pritesh at [facility]. DONNIE faxed updates to [facility]. DONNIE attempted to contact Iesha at [facility]. DONNIE left her a voicemail, giving her the referral.
--- NOTE | 2020-05-30 11:54 | NUR ---
Evelin with Dr. Shelby's office contacted this Tax Technician. Evelin reports that Dr. Shelby would like the patient to go to post acute rehab before resuming treatment.
[2020-05-30 12:20] VITALS: BP 85/56; PULSE 73; TEMP 98.2
--- NOTE | 2020-05-30 12:38 | NUR ---
Pt continues to state that he feels very tired. BP is slightly lower than they have been. Called pt's son, Igor, per the pt's request. Did discuss the visitor policy with Igor, stated he understood. Pt is now using the bedpan due to increased weakness. Call light within reach, will continue to monitor
--- NOTE | 2020-05-30 14:04 | NUR ---
I have tried to meet with Mr Holloway twice today to demonstrate the pleurx drain and he was not ready to discuss at either time. I will try again after 3pm today as he told me that he hopes his son could be here to hear this also. Pamphlet left at bedside.
--- NOTE | 2020-05-30 14:04 | NUR ---
Primary nurse was assisted with [phone] patient care by [employer] AD[employer] student Mc Patel and [facility] instructor Carley Rodriguez RN-.
--- NOTE | 2020-05-30 14:39 | NUR ---
Assisted patient back to his bed. He did well with one assist. Discussed visitor policy with pt. Pt reports no pain at this time, denies any needs, will continue to monitor.
--- NOTE | 2020-05-30 15:42 | NUR ---
Pritesh, at [facility], reports that he is checking with to see if they have clinical capabilities to handle a trilogy. The patient's son, Igor, arrived to the hospital. DONNIE met with the patient and Igor to update on referrals. The patient is open to SW sending more referrals. DONNIE contacted and faxed a referral to [facility], [facility], and [facility]. Awaiting screens.
--- NOTE | 2020-05-30 15:51 | NUR ---
I met with Noel and his son Igor at bedside and reviewed the pleurx drain, how it works and the drainage process. Questions were invited and answered. Igor feels that they can manage this but might be interested in home health to provide support for the first couple of drainage times. Pt states that he is not sure where he will go for rehab as "no one wants me with my trilogy and oxygen needs". Support provided and will follow along.
[2020-05-30 16:16] VITALS: BP 91/55; PULSE 70; TEMP 98
[2020-05-30 19:34] VITALS: BP 111/70; PULSE 71; TEMP 98
--- NOTE | 2020-05-30 20:30 | NUR ---
Initial shift assessment done- alert/oriented, Tele on, denies pain at this time, Fontaine with clear joan urine, o2 at5L/nc. Denies SOB
[2020-05-30 22:57] VITALS: BP 102/59; PULSE 76; TEMP 98.1
[2020-05-31 03:18] VITALS: BP 96/60; PULSE 68; TEMP 97.7
--- NOTE | 2020-05-31 05:39 | NUR ---
Did not sleep much during the night-- little requests throughout the night, VSS, was given a TUMs x1 for some indigestion, Tele remains on, Fontaine with 425cc yellow urine out, 02 at 6L/nc with sats at 6L/nc- did use trilogy most of the night.
[2020-05-31 07:20] LABS: MEAN CELL VOLUME 98 fl (80.0-100.0); MEAN CORPUSCULAR HGB CONC 33 g/dl (33.0-37.0); MEAN PLATELET VOLUME 9.2 fl (7.4-10.4); PLATELET COUNT 217 K/mm3 (130-400); RED BLOOD COUNT 2.42 M/mm3 (4.20-5.60)
[2020-05-31 07:27] LABS: CALCIUM 8.4 mg/dL (8.4-10.2); CREATININE, serum 0.78 (0.66-1.25); POTASSIUM 4.5 mmol/L (3.4-5.0)
[2020-05-31 07:31] LABS: HEMATOCRIT 23.6 % (42.0-52.0); HEMOGLOBIN 7.7 g/dl (13.5-18.0); MEAN CORPUSCULAR HEMOGLOBIN 32 pg (27.0-31.0)
[2020-05-31 07:52] LABS: ANISOCYTOSIS 1+; EOSINOPHIL 5 % (0-4); HYPOCHROMIA 2+; LYMPHOCYTE 8 % (20.0-51.0); METAMYELOCYTE 1 % (0-0); MYELOCYTE 2 % (0-0); NEUTROPHILS 73 % (42.0-75.2)
[2020-05-31 08:04] VITALS: BP 105/61; PULSE 69; TEMP 97.7
--- NOTE | 2020-05-31 11:18 | NUR ---
Devi, at [facility], reports that they have declined the patient.
--- NOTE | 2020-05-31 11:59 | NUR ---
Huong, at [facility], reports that they will be coming up to the hospital to screen the patient. SW informed the patient. [facility] arrived to screen. Awaiting screen.
[2020-05-31 12:34] VITALS: BP 107/59; PULSE 74; TEMP 97.9
--- NOTE | 2020-05-31 13:47 | NUR ---
Primary nurse was assisted with [phone] patient care by [facility] [employer] [employer] Katey Arora and [facility] instructor Carley Rodriguez MSN, RN.
[2020-05-31] MEDS ORDERED: IPRATROPIUM BROM3 M1 IH (15:51)
[2020-05-31] MEDS ORDERED: FLOMAX 0.40.4 MG/CAP PO (15:51)
[2020-05-31] MEDS ORDERED: TYLENOL 325MG325 MG PO (15:52)
[2020-05-31] MEDS ORDERED: FLEET ENEM1 BOT/133 RC (15:53)
[2020-05-31] MEDS ORDERED: PROTONIX 40MG T40 MG PO (15:53)
[2020-05-31] MEDS ORDERED: MIRALAX PA17 GM/Dose PO (15:53)
[2020-05-31] MEDS ORDERED: COLACE 100100 MG/CAP PO (15:53)
[2020-05-31] MEDS ORDERED: DULCOLAX S10 MG/SUPP RC (15:53)
[2020-05-31] MEDS ORDERED: MELATIN 3 MG-11 TAB PO (15:54)
[2020-05-31] MEDS ORDERED: ANTACID500 M1 PO (15:54)
[2020-05-31] MEDS ORDERED: MYLANTA 150 ML150 M1 PO (15:55)
[2020-05-31] MEDS ORDERED: KLONOPIN 1MG1 MG PO (15:56)
[2020-05-31 15:59] VITALS: BP 107/59; PULSE 74; TEMP 97.9
--- NOTE | 2020-05-31 16:01 | NUR ---
Huong, at [facility], reports that their doctor still needs to review and approve the patient. She states that they may be able to take the patient this weekend. Jimbo, at [facility], reports that they are able to accept the patient for a skilled stay today. DONNIE met with the patient to update. The patient is agreeable to going to [facility]. DONNIE presented and read the IM form outloud to the patient. The patient verbalized understanding and signed the form. DONNIE provided him with a copy. DONNIE contacted and updated the patient's [id number], Jimmie. Jimmie and the patient family are agreeable to the above plan. The patient is to discharge today, 05/31, to [facility] for a skilled stay. [facility] DONNIE informed the patient, his RN, and [id number] of the time. They were all agreable to the time. No additional needs at this time.
--- NOTE | 2020-05-31 17:11 | NUR ---
IV to RFA dc'd catheter tip intact. Pt wheeled out to [employer] employee at this time.
--- NOTE | 2020-05-31 17:15 | NUR ---
Attempted to contact [facility] nurse for report no answer. Prescription faxed over per Dr. Woody.
[2020-05-31] MEDS ORDERED: THERMOTABS 2871 TA1 PO (18:00)
== END 2020-05-31 17:15 | DRG 180 ==
LOC: COL.ER 11:00 → MEDICAL 12:07
PROVIDERS: Family Medicine; Hospitalist; Internal Medicine Pulmonary Disease; Nurse Practitioner Family; Physician Assistant; Student in an Organized Health Care Education/Training Program; ADMIT Internal Medicine
PROC: 0W9B3ZZ Drainage of Left Pleural Cavity, Percutaneous Approach (ICD-10-PCS; principal; 2020-05-22 09:30)
PROC: 0W9B3ZZ Drainage of Left Pleural Cavity, Percutaneous Approach (ICD-10-PCS; 2020-05-28)
DX: C34.32 Malignant neoplasm of lower lobe, left bronchus or lung (principal); J96.21 Acute and chronic respiratory failure with hypoxia; J91.0 Malignant pleural effusion; I48.92 Unspecified atrial flutter; E87.3 Alkalosis; E22.2 Syndrome of inappropriate secretion of antidiuretic hormone; I48.0 Paroxysmal atrial fibrillation; I11.0 Hypertensive heart disease with heart failure; Z20.822 Contact with and (suspected) exposure to COVID-19; E87.8 Other disorders of electrolyte and fluid balance, not elsewhere classified; G47.00 Insomnia, unspecified; R33.9 Retention of urine, unspecified; K59.00 Constipation, unspecified; R07.9 Chest pain, unspecified; I95.9 Hypotension, unspecified; R53.81 Other malaise; Z85.828 Personal history of other malignant neoplasm of skin; Z98.52 Vasectomy status; Z87.891 Personal history of nicotine dependence; Z79.82 Long term (current) use of aspirin; Z90.79 Acquired absence of other genital organ(s); Z95.818 Presence of other cardiac implants and grafts
CPT/HCPCS: 99222-AI; 99232-AI; 99233-AI; 99239; A4314; J1650; J1940; J2270; J3475; J7030; J7040; Q9967

== ENCOUNTER 2020-06-05 11:38 | Emergency (ER) | payer MEDICARE, BC ==
[~2020-06-05] VITALS: Ht 177.8 cm; Wt 81.8 kg
[~2020-06-05 11:38] MED LIST changes: +ANTACID500 M1 PO; +COLACE 100100 MG/CAP PO; +DULCOLAX S10 MG/SUPP RC; +FLEET ENEM1 BOT/133 RC; +IPRATROPIUM BROM3 M1 IH; +KLONOPIN 1MG1 MG PO; +MELATIN 3 MG-11 TAB PO; +MIRALAX PA17 GM/Dose PO; +MYLANTA 150 ML150 M1 PO; +THERMOTABS 2871 TA1 PO
[2020-06-05 11:43] VITALS: TEMP 97.6
[2020-06-05 12:11] LABS: BASO # 0.1 (0.0-0.2); BASO % 0.8 % (0.0-2.0); EOS # 0.6 (0.0-0.7); EOS % 9.6 % (0-4.0); GRAN # 4.8 (1.4-6.5); GRAN % 74.1 % (42.2-75.2); LYMPH # 0.3 (1.2-3.4); LYMPH % 5.2 % (20.0-51.0); MEAN CELL VOLUME 97 fl (80.0-100.0); MEAN CORPUSCULAR HGB CONC 33 g/dl (33.0-37.0); MEAN PLATELET VOLUME 9.1 fl (7.4-10.4); MONO # 0.6 (0.1-0.6); MONO % 9.1 % (1.7-9.3); PLATELET COUNT 229 K/mm3 (130-400); RED BLOOD COUNT 2.71 M/mm3 (4.20-5.60); REDCELL DISTRIBUTION WIDTH-CV 14.4 % (11.5-14.5)
[2020-06-05 12:13] LABS: HEMATOCRIT 26.4 % (42.0-52.0); HEMOGLOBIN 8.7 g/dl (13.5-18.0); MEAN CORPUSCULAR HEMOGLOBIN 32 pg (27.0-31.0)
[2020-06-05 12:18] LABS: ALANINE AMINOTRANSFERASE 19 U/L (4-49); ALKALINE PHOSPHATASE 59 U/L (50-136); ANION GAP 7 mmol/L (7-16); AST,SGOT 33 U/L (15-37); BILIRUBIN,TOTAL < 0.1 mg/dL (0.0-1.0); BLOOD UREA NITROGEN 35 mg/dL (9-20); CALCIUM 9.2 mg/dL (8.4-10.2); CARBON DIOXIDE 32 mmol/L (22-30); CREATININE, serum 0.79 (0.66-1.25); GLUCOSE 84 mg/dL (74-106); POTASSIUM 4.2 mmol/L (3.4-5.0); SODIUM 126 mmol/L (137-145); TOTAL PROTEIN 6.1 gm/dL (6.4-8.2)
[2020-06-05 12:19] LABS: CHLORIDE 88 mmol/L (98-107)
[2020-06-05 12:31] LABS: COLLECTION METHOD CLEAN CATCH
[2020-06-05 12:37] LABS: MUCOUS Present /lpf; PH 5 (5-8); SQUAMOUS EPITHELIAL 0-2 /hpf; URINE APPEARANCE Hazy; URINE BACTERIA None Seen /hpf; URINE BILIRUBIN Negative (NEGATIVE); URINE BLOOD 3+ (NEGATIVE); URINE COLOR Yellow; URINE GLUCOSE Negative (NEGATIVE); URINE KETONE Negative (NEGATIVE); URINE LEUKOCYTE ESTERASE Negative (NEGATIVE); URINE NITRATE Negative (NEGATIVE); URINE PROTEIN(semi-quant) Negative (NEGATIVE); URINE RBC >50 /hpf; URINE UROBILINOGEN Negative (NEGATIVE)
--- NOTE | 2020-06-05 16:22 | NUR ---
contact worker lithography spoke with son, Robert and his spouse and advised that patient will not be admitted to the hospital, rather patient will transfer back to skilled care at [facility] until [facility] has arranged 24 hour care and Hospice services. Worker spoke with [employer] and they are working on the above information to have patient home by this weekend. Worker spoke with Varsha at [facility] and coordinated transfer back to [facility] via wheelchair van with oxygen. Robert and his verbalized understanding of Hospice care and the hospice benefit. Worker collaborated with patient's nurse, Deepika, to accomplish above plan of care.
[2020-06-05 16:29] VITALS: BP 94/67; PULSE 76
--- NOTE | 2020-06-05 16:47 | NUR ---
Patient told nurse that he wishes to be a DNR. An order will be written and sent to [facility]. Worker notified son, Robert and Jimmie of the above information. Worker contacted Michaela at [facility] and advised of the above information. [facility] will have patient sign for a DNR when he arrives.
== END 2020-06-05 17:20 | disposition home or self-care (01) ==
LOC: COL.ER 11:38
PROVIDERS: Family Medicine
DX: D64.9 Anemia, unspecified (principal); I95.89 Other hypotension; C34.90 Malignant neoplasm of unspecified part of unspecified bronchus or lung; J44.9 Chronic obstructive pulmonary disease, unspecified; Z88.0 Allergy status to penicillin; Z79.51 Long term (current) use of inhaled steroids; Z79.82 Long term (current) use of aspirin
CPT/HCPCS: J7030